=== PATIENT | female | born 1950 | race Caucasian/White ===

== ENCOUNTER 2018-08-15 08:17 | Inpatient (IN) | payer MEDICARE, OTHER ==
[~2018-08-15] VITALS: Ht 170.2 cm; Wt 116.8 kg
[2018-08-15] VITALS (11 sets, daily range): BP systolic 112–145; BP diastolic 52–87
[2018-08-15] MEDS ORDERED: SIMV10TA3 PO (10:23)
[2018-08-15] MEDS ORDERED: LEVO88TA4 PO (10:23)
[2018-08-15] MEDS ORDERED: IPRA0.2S5 NEB (10:23)
[2018-08-15] MEDS ORDERED: FLUT9.9S NS (10:23)
[2018-08-15] MEDS ORDERED: ROPI0.5T PO (10:23)
[2018-08-15] MEDS ORDERED: FURO20TA3 PO (10:23)
[2018-08-15] MEDS ORDERED: ALBU2.5V8 INH (10:23)
[2018-08-15] MEDS ORDERED: PRED1TAB3 PO (10:23)
[2018-08-15] MEDS ORDERED: POLY255P11 PO (10:23)
[2018-08-15] MEDS ORDERED: CETI10TA16 PO (10:23)
[2018-08-15] MEDS ORDERED: PANT20TA2 PO (10:23)
[2018-08-15] MEDS ORDERED: FAMO-63 PO (10:23)
[2018-08-15] MEDS ORDERED: MELA3TAB2 PO (10:23)
[2018-08-15] MEDS ORDERED: ROFL500T7 PO (10:23)
[2018-08-15] MEDS ORDERED: MONT10TA6 PO (10:23)
[2018-08-15] MEDS ORDERED: LORA0.5T PO (10:23)
[2018-08-15] MEDS ORDERED: NYST15CR TP (10:23)
[2018-08-15] MEDS ORDERED: GUAI600T47 PO (10:23)
[2018-08-15] MEDS ORDERED: CHOL100013 PO (10:23)
[2018-08-15] MEDS ORDERED: ALBUTEROL SULFATE 2.5 MG/3 ML NEBU. INH PRN (10:30)
[2018-08-15] MEDS: POLYETHYLENE GLYCOL 3350 17 GM PACKET. PO SCH (11:00)
[2018-08-15] MEDS: CHOLECALCIFEROL (VITAMIN D3) 1,000 UNIT TABLET PO SCH (11:00)
[2018-08-15] MEDS: FAMOTIDINE 20 MG TABLET. PO SCH ×2 (11:00→20:59)
[2018-08-15] MEDS ORDERED: NYSTATIN 100,000 UNIT/GM TOPICAL CREAM 15GM TUBE. TP SCH (11:00)
[2018-08-15] MEDS: CETIRIZINE HCL 10 MG TABLET. PO SCH (11:00)
[2018-08-15] MEDS ORDERED: FLUTICASONE 50MCG/NASAL SPRAY 16GM BOTTLE. NS SCH (11:00)
[2018-08-15] MEDS: FUROSEMIDE 20 MG TABLET PO SCH (11:00)
[2018-08-15] MEDS: predniSONE 5 MG TABLET PO SCH (11:00)
[2018-08-15] MEDS: ROFLUMILAST 500 MCG TABLET. PO SCH (11:00)
[2018-08-15 11:11] LABS: BASO # 0.1 x10^3/uL (0.0-0.2); BASO % 1 % (0-3); EOS # 1.2 x10^3/uL (0.0-0.7); EOS % 11 % (0-3); HEMATOCRIT 36.5 % (36.0-47.0); HEMOGLOBIN 11.7 g/dL (12.0-15.5); LYMPH # 0.6 x10^3/uL (1.0-4.8); LYMPH % 6 % (24-48); MEAN CORPUSCULAR HEMOGLOBIN 31 pg (25-35); MEAN CORPUSCULAR HGB CONC 32 g/dL (31-37); MEAN CORPUSCULAR VOLUME 96 fL (79-100); MONO # 1.1 x10^3/uL (0.0-1.1); MONO % 10 % (0-9); NEUT # 7.6 x10^3uL (1.8-7.7); NEUT % 72 % (31-73); PLATELET COUNT 290 x10^3/uL (140-400); RED BLOOD COUNT 3.79 x10^6/uL (3.50-5.40); RED CELL DISTRIBUTION WIDTH 14.1 % (11.5-14.5); WHITE BLOOD COUNT 10.5 x10^3/uL (4.0-11.0)
[2018-08-15 11:20] LABS: CALCIUM 9.4 mg/dL (8.5-10.1); CREATININE 1.2 mg/dL (0.6-1.0); GFR 54.4; POTASSIUM 3.9 mmol/L (3.5-5.1)
[2018-08-15] MEDS: PANTOPRAZOLE 40 MG TABLET.DR. PO SCH (11:30)
[2018-08-15] MEDS: FLUTICASONE 50MCG/NASAL SPRAY 16GM BOTTLE. NS SCH (12:00)
[2018-08-15] MEDS: NYSTATIN 100,000 UNIT/GM TOPICAL CREAM 15GM TUBE. TP SCH ×2 (12:00→21:00)
[2018-08-15 12:08] LABS: % BANDS 6 % (0-9); % EOS 11 % (0-5); % LYMPHS 11 % (24-48); % MONOS 5 % (0-10); % SEGS 67 % (35-66)
[2018-08-15 12:10] LABS: PLT ESTIMATE ADEQUATE (ADEQUATE)
--- NOTE | 2018-08-15 12:10 | HP ---
ADMIT DATE: 08/15/2018 HISTORY OF PRESENT ILLNESS: The patient is a 68-year-old female patient who was transferred from [facility] where she was admitted through them. She was seen originally at [facility] where she was having difficulty breathing as well as chest pain, she felt as fairly significant. The patient has a long history of COPD and has been treated numerous times by her director of emergency nursing. The patient came in through as noted from [facility]. As they do not have any room for admission, she was admitted to [facility] and was admitted for acute exacerbation of COPD with respiratory infection as well as chest pain. She has had 3 sets of cardiac enzymes that ruled out myocardial infarction. However, an echocardiogram showed severe mitral stenosis with a surface area of 0.7 square cm, and therefore, the patient was transferred to [facility] to consult the director of emergency nursing as well as cardiothoracic surgeon and to do left and right heart catheterization. PAST MEDICAL HISTORY: Significant for chronic obstructive pulmonary disease and recurrent admission for exacerbation, congestive heart failure, hyperlipidemia. She is on continuous oxygen and Trilogy for hypercapnia, morbid obesity and obstructive sleep apnea. She also has severe mitral stenosis. PAST SURGICAL HISTORY: Significant for other medical problems to include hypothyroidism, chronic steroid therapy, anxiety disorder. PAST SURGICAL HISTORY: Significant for total abdominal hysterectomy, bilateral salpingo-oophorectomy, ectopic . She also has cholecystectomy. FAMILY HISTORY: Positive for diabetes, hypertension, multiple sclerosis and emphysema. SOCIAL HISTORY: She is . Quit smoking and drinking about a year ago. She is a [id number] mom, took care of 5 children. ALLERGIES: She has no known drug allergies. MEDICATIONS: She is currently on following medications: Cetirizine 10 mg once a day, ipratropium bromide by nebulizer 4 times a day, albuterol sulfate 1 puff every 6 hours. She is on simvastatin 10 mg at bedtime, lorazepam 0.5 mg every 8 hours, Requip 0.5 mg at bedtime, furosemide 20 mg once a day, montelukast 10 mg at bedtime, Mucinex 600 mg twice a day, Daliresp 500 mcg tablet once a day, Flonase 2 sprays to each nostril daily. She is on polyethylene glycol 17 grams daily, famotidine 20 mg twice a day, Protonix 40 mg daily, prednisone 5 mg daily, levothyroxine sodium 88 mcg once a day, nystatin cream apply topically twice a day, cholecalciferol 1000 International Unit once a day, and melatonin 3 mg at bedtime. REVIEW OF SYSTEMS: The patient denied any blurring of vision, cataract, glaucoma or macular degeneration. Denied any earache, tinnitus or sensorineural deafness. Denied any nosebleeds, stuffy nose or postnasal drip. Denied any sore throat, sore tongue, toothache, hoarseness of voice or difficulty swallowing. Denied any nausea, vomiting, diarrhea or constipation. Denied any hematemesis, melena or hematochezia. Denied any dysuria, frequency or hematuria. Did complain of chest pain, shortness of breath, orthopnea and paroxysmal nocturnal dyspnea. She had also cough with creamy sputum. Denied any dizziness, lightheadedness or vertigo. Denied any chills, rigors or fever. PHYSICAL EXAMINATION: GENERAL: On examining her, she was resting slightly propped up in bed, in no apparent respiratory distress. There is no pallor, jaundice, cyanosis or thyromegaly. No jugular venous distension. No lower limb edema. VITAL SIGNS: Her heart rate was 88, blood pressure 137/40, temperature was 98, respiratory rate was 18 and oxygen saturation was 98% on 2 liters oxygen by nasal cannula. HEAD, EYES, EARS, NOSE AND THROAT: Showed normocephalic, atraumatic. NECK: Supple. HEART: Showed normal first and second heart sounds with no gallop, rub or murmur. CHEST: Shows central trachea, equal bilateral expansion, air entry. Vesicular breath sounds. No crepitation or rhonchi. ABDOMEN: Distended, soft, nontender. NEUROLOGIC: She is awake, alert, responding appropriately. All her cranial nerves intact. EXTREMITIES: She moves extremities without difficulty. She ambulates with a walker. LABORATORY DATA: While at [facility], she has had lab work done, showed that her white cell count was 10,760. Her hemoglobin was 11, hematocrit 37, MCV 97 and platelet count 282,000. Her serum sodium was 141, potassium 4.7, chloride 98, bicarbonate 32, anion gap of 10, calcium was 9.5, glucose was 103. Total protein was 8, albumin was 4.3, alkaline phosphatase was 84. She apparently has had an echocardiogram done, the echocardiogram showed that her left ventricular systolic function is normal, ejection fraction is 55-60%, normal left ventricular segmental wall motion. The patient has severe mitral valve stenosis with a calculated mitral valve area of 0.7 square cm with mean pressure gradient of 60 mmHg. She has mild mitral regurgitation, trace to mild tricuspid regurgitation, moderate pulmonary hypertension with pulmonary artery pressure was estimated at 46 mmHg. There is no evidence of significant pericardial effusion. ASSESSMENT AND PLAN: The patient was transferred to [facility] who basically for left and right cardiac catheterization, further evaluation and possible cardiothoracic surgery consult. We will continue with all her medication, consult the Cardiology, director of emergency nursing as well as the cardiothoracic surgeon. KESHIA CORDERO MD DR: KIRSTEN/tami JOB#: [id number] / [id number]
[2018-08-15] MEDS: IPRATROPIUM BROMIDE 0.5 MG/2.5 ML NEBU. NEB SCH ×3 (12:43→22:04)
[2018-08-15] MEDS ORDERED: fentaNYL PF VIAL 100 MCG/2 ML VIAL ONE (13:04)
[2018-08-15] MEDS ORDERED: MIDAZOLAM HCL/PF 2 MG/2 ML VIAL. ONE (13:05)
[2018-08-15] MEDS ORDERED: MIDAZOLAM HCL/PF 2 MG/2 ML VIAL. IV ONE (13:15)
[2018-08-15] MEDS ORDERED: fentaNYL PF VIAL 100 MCG/2 ML VIAL IV ONE (13:15)
[2018-08-15] MEDS ORDERED: IODIXANOL 320 MG/ML 100 ML VIAL. IART ONE (13:15)
[2018-08-15] MEDS ORDERED: LIDOCAINE 1% Multi-Dose 20 ML VIAL. INJ ONE (13:15)
[2018-08-15] MEDS ORDERED: LIDOCAINE 1% Multi-Dose 20 ML VIAL. ONE (13:24)
[2018-08-15] MEDS ORDERED: IODIXANOL 320 MG/ML 100 ML VIAL. ONE (14:19)
--- NOTE | 2018-08-15 15:03 | PDOC ---
MODERATE SEDATION ASSESSMENT RISKS/ALTERNATIVES Risks/Alternatives Risks and alternatives of this type of sedation and procedure discussed with: RISK/ALTERNATIVES: Patient H & P ON CHART H & P H & P on chart and reviewed for co-morbid conditions and appropriate labs. H&P ON CHART: Yes STATUS PREG STATUS ASSESSED: N/A MEDS/ALLERGIES REVIEWED Meds/Allergies Reviewed Medications and Allergies including time and route of recently administered narcotics and sedatives. MEDS/ALLERGIES REVIEWED: Yes ASA RATING ASA RATING: III AIRWAY ASSESSMENT Airway Assessment Airway patency, oral function limitations, presence of caps, crowns, dentures, partials, and ability to extend neck assessed. AIRWAY ASSESSMENT: Yes MALLAMPATI SCORE MALLAMPATI SCORE: II PRE-SEDATION ASSESSMENT PRE-SEDATION ASSESSMENT: Yes TERI SNELL MD Aug 15, 2018 15:03
[2018-08-15] MEDS: ONDANSETRON PF 4 MG/2 ML VIAL. IV PRN (15:07)
--- NOTE | 2018-08-15 15:13 | CARD ---
MR#: [id number] Date of Study: 08/15/2018 Ordering Physician: TERI LITTLE, Referring Physician: KESHIA CORDERO Tech: Radha Ramos RTR APPROVED REPORT Technologist: Radha Ramos RTR Nurse: Candelaria Meyer RN Procedure(s) performed: Right and left heart catheterization and selective coronary angiography Moderate Sedation time:45 minutes HISTORY : Mitral valve stenosis and chronic diastolic heart failure. [facility] Clinical Frailty Scale [facility] Clinical Frailty Scale: Mildly Frail Heart Failure Heart Failure: Yes If Yes, Newly Diagnosed: No If Yes, HF Type: Diastolic If Yes, NYHA Class: Class II PROCEDURE NARRATIVE After explaining the risks, benefits and alternative options, informed consent was obtained from kiara ent. Patient was brought to the cardiac Fellmongering Machine Operator and her right groin was prepped and draped in the us ual fashion. 20 mL of 2% lidocaine was infiltrated into the skin and subcutaneous tissues for local a nesthesia. Arterial and venous accesses were obtained in the right common femoral artery and vein and 6 and 8 Irish sheaths were inserted. 7.5 Irish Luquillo-Filippo catheter was advanced under fluoroscopy g uidance and intracardiac pressures, oxygen saturations and cardiac output by thermodilution method me asured. 6 Irish pigtail catheter was advanced to the arterial sheath and with the tip positioned in the left ventricle simultaneous left ventricular and primary capillary wedge pressure measurements we re made to assess transmitral gradient. Subsequently, 6 Irish JL4 and 6 Irish JR4 catheters were us ed to perform selective angiography of the left and right coronary arteries. Patient tolerated the pr ocedure well. Hemostasis was achieved using mynx closure device and manual compression. There were no immediate complications. FINDINGS A. RIGHT HEART CATHETERIZATION: 1. Intracardiac pressures: Mean right atrial pressure 15 mmHg, right ventricular pressure 61/14 mmH g, pulmonary artery pressure 61/31 mmHg and mean PA pressure 47 mmHg, mean pulmonary capillary wedge pressure 28 mmHg. This is consistent with moderate pulmonary hypertension. 2. Oxygen saturations: Right atrium 68.1%, pulmonary artery 66.2%, femoral arterial sheath 96.4%. N o evidence of intracardiac shunt. 3. Cardiac output by thermodilution method 4.7 L/m and by Awais method 4.57 L/m. 4. Transmitral gradient of 13.3 mmHg with calculated mitral valve area 1.24 cm. This is consistent with severe mitral stenosis. B. LEFT HEART CATHETERIZATION 1. Hemodynamics: Left ventricular end-diastolic pressure 19 mmHg. No pullback gradient across the a ortic valve. 2. Left ventriculography: Normal left ventricle systolic function with ejection fraction estimated at 65%. No significant mitral regurgitation seen. 3. Coronary angiography: a. The left main coronary artery arose from the left sinus of Valsalva, gave rise to the left anteri or descending and left circumflex arteries and did not show any significant stenosis. b. The left anterior descending artery did not show any significant stenosis. c. The left circumflex artery did not show any significant stenosis. d. The right coronary artery was a large and dominant vessel arising from the right sinus of Valsalv a that did not show any significant stenosis. Conclusion 1. No significant coronary artery disease 2. Normal left ventricle systolic function with ejection fraction estimated at 65% 3. Severe mitral valve stenosis with mean gradient 13.3 mmHg and calculated mitral valve area 1.24 c m 4. Moderate pulmonary hypertension Signed by : Teri Little, Electronically Approved : 08/15/2018 15:12:35
[2018-08-15] MEDS ORDERED: NITROGLYCERIN SUBLINGUAL 0.4 MG BOTTLE OF 25. SL PRN (15:15)
[2018-08-15] MEDS: HYDROcodone/APAP 5/325MG 1 TAB TABLET PO PRN (15:38)
[2018-08-15] MEDS: IV 1/2 NORMAL SALINE 1,000 ML IV SCH (15:38)
[2018-08-15] MEDS: SIMVASTATIN 10 MG TABLET PO SCH (20:59)
[2018-08-15] MEDS: rOPINIRole 0.25 MG TABLET. PO SCH (20:59)
[2018-08-15] MEDS: MONTELUKAST SODIUM 10 MG TABLET. PO SCH (21:00)
[2018-08-15] MEDS ORDERED: NON FORMULARY ITEM (Melatonin 1 TAB) PO SCH (21:00)
[2018-08-15] MEDS: LORazepam 0.5 MG TABLET PO PRN (21:06)
[2018-08-16 03:00] VITALS: BP 124/55
[2018-08-16 04:02] LABS: HEMATOCRIT 34.8 % (36.0-47.0); HEMOGLOBIN 11.1 g/dL (12.0-15.5); RED BLOOD COUNT 3.59 x10^6/uL (3.50-5.40); RED CELL DISTRIBUTION WIDTH 13.7 % (11.5-14.5); WHITE BLOOD COUNT 10.7 x10^3/uL (4.0-11.0)
[2018-08-16 04:29] LABS: ALBUMIN 3.5 g/dL (3.4-5.0); ALBUMIN/GLOBULIN RATIO 0.9 (1.0-1.7); CREATININE 1.1 mg/dL (0.6-1.0); GFR 49.7; POTASSIUM 4.1 mmol/L (3.5-5.1); TOTAL BILIRUBIN 0.7 mg/dL (0.2-1.0); TOTAL PROTEIN 7.5 g/dL (6.4-8.2)
[2018-08-16] MEDS: HYDROcodone/APAP 5/325MG 1 TAB TABLET PO PRN ×2 (06:01→21:02)
[2018-08-16 07:00] VITALS: BP 112/46
--- NOTE | 2018-08-16 07:27 | PDOC ---
Provider Note Provider Note [id number] chronic resp fail copd obesity prob [facility] see orders SERGIO TSAI MD Aug 16, 2018 07:27
[2018-08-16] MEDS: IV 1/2 NORMAL SALINE 1,000 ML IV SCH (07:43)
[2018-08-16] MEDS: IPRATROPIUM BROMIDE 0.5 MG/2.5 ML NEBU. NEB SCH ×4 (07:58→20:05)
[2018-08-16] MEDS: BUDESONIDE 0.5 MG/2 ML NEBU. NEB SCH ×2 (07:59→20:06)
--- NOTE | 2018-08-16 08:26 | CONS ---
DATE OF CONSULTATION: 08/16/2018 I was asked to see this 68-year-old lady for chronic respiratory failure. Preoperative evaluation. HISTORY OF PRESENT ILLNESS: She does have history of [id number] smoking, stopped smoking about a year ago. She has chronic respiratory failure and COPD. She is on oxygen 4 liters continuously. Her airport security screener at [facility] started her on Trelegy at night about a year ago. She does have shortness of breath. Her exercise tolerance is room to room. She has gained about 40 pounds over the past 2 years. She does not exercise. She has not had a sleep study. She is on prednisone daily. She was not able to tolerate, being off prednisone. She had cardiac catheterization done yesterday, which did show severe mitral stenosis. The patient did have chest pain, went to [facility]. She was transferred to [place] on Saturday and she was transferred to [place] yesterday and underwent cardiac catheterization yesterday. (Today is Saturday). She does have daily cough, which is not worse. PAST MEDICAL HISTORY: COPD, chronic respiratory failure, mitral stenosis as mentioned as above, CHF, hyperlipidemia. FAMILY HISTORY: Father had lung cancer. SOCIAL HISTORY: History of [id number] smoking, stopped smoking a year ago. ALLERGIES: No known drug allergies. MEDICATIONS: Currently, she is on DuoNeb, prednisone 5 mg daily, Synthroid, Requip, Singulair, Zocor, Lortab, Zofran, Atrovent, Flonase, Protonix, Daliresp, vitamin D, prednisone 5 mg daily, Mucinex, Lasix, Pepcid, lorazepam. REVIEW OF SYSTEMS: As mentioned as above, other systems otherwise negative. PHYSICAL EXAMINATION: GENERAL: This morbidly obese lady. VITAL SIGNS: Her O2 saturation on 4 liters of oxygen is 92%, respiratory rate 16, heart rate 93, blood pressure 124/55, temperature 97.9. HEENT: Normocephalic, atraumatic. Pupils equal, round, reactive to light. There is shallow oropharynx. Nose is clear. NECK: There is no JVD, lymphadenopathy or thyromegaly. CARDIOVASCULAR: Regular rate and rhythm, positive for murmur. CHEST: Inspection is normal. LUNGS: Few end expiratory wheezing, dullness at the bases. ABDOMEN: Soft and obese. Bowel sounds are good. There is no mass. EXTREMITIES: There is trace edema. LYMPHATICS: There is no lymphadenopathy. NEUROLOGIC: Alert and oriented. SKIN: Warm. I reviewed the following lab data. Cardiac catheterization as mentioned as above. WBC 10.7, hemoglobin 11.1, platelet 266. Sodium 138, potassium 4.1, chloride 100, CO2 31, glucose 109, BUN 18, creatinine 1.1. INR 1.1. IMPRESSION: 1. Chronic respiratory failure. 2. Chronic obstructive pulmonary disease, suspect severe. 3. Obesity, probable obstructive sleep apnea-hypopnea syndrome and obesity hypoventilation syndrome. 4. Severe mitral stenosis. 5. Anemia. 6. Hypothyroidism. 7. History of congestive heart failure. PLAN AND RECOMMENDATIONS: 1. Titrate FiO2 to keep O2 saturation 92%. 2. Continue Trelegy during sleep. 3. Bronchodilator. 4. Add inhaled corticosteroid. 5. Continue prednisone, since she has been on prednisone for at least 1 year. 6. Continue Daliresp. 7. Add inhaled corticosteroid. 8. ABG and complete PFTs. 9. Chest x-ray, she may require CT of the chest. 10. She has COPD, which I suspect it is severe, steroid and oxygen dependent. She has chronic respiratory failure. She is morbidly obese. She has deconditioning and possible obstructive sleep apnea-hypopnea syndrome and obesity hypoventilation syndrome. I suspect she would be at high risk of developing pulmonary complications in the perioperative period. I ordered PFTs and ABG to further evaluate her COPD. 11. The findings and recommendations were discussed with the patient and RN. I have answered all of the patient's questions. She understood and agreed to proceed with the plan. Thank you very much for allowing me to participate in care of this very nice lady. SERGIO TSAI M.D. : Nir JOB#: [id number] / [id number]
[2018-08-16] MEDS: FUROSEMIDE 20 MG TABLET PO SCH (08:41)
[2018-08-16] MEDS: ROFLUMILAST 500 MCG TABLET. PO SCH (08:42)
[2018-08-16] MEDS: PANTOPRAZOLE 40 MG TABLET.DR. PO SCH (08:42)
[2018-08-16] MEDS: FAMOTIDINE 20 MG TABLET. PO SCH ×2 (08:42→20:58)
[2018-08-16] MEDS: POLYETHYLENE GLYCOL 3350 17 GM PACKET. PO SCH (08:42)
[2018-08-16] MEDS: LEVOTHYROXINE 88 MCG TABLET PO SCH (08:42)
[2018-08-16] MEDS: predniSONE 5 MG TABLET PO SCH (08:42)
[2018-08-16] MEDS: CHOLECALCIFEROL (VITAMIN D3) 1,000 UNIT TABLET PO SCH (08:42)
[2018-08-16] MEDS: CETIRIZINE HCL 10 MG TABLET. PO SCH (08:42)
[2018-08-16] MEDS: FLUTICASONE 50MCG/NASAL SPRAY 16GM BOTTLE. NS SCH (08:42)
[2018-08-16] MEDS: NYSTATIN 100,000 UNIT/GM TOPICAL CREAM 15GM TUBE. TP SCH ×2 (08:44→21:00)
--- NOTE | 2018-08-16 10:23 | RAD ---
AP chest. HISTORY: Short of breath AP view of the chest was compared with recent studies. There are still hazy and linear atelectasis or infiltrate in the lung bases. Heart is upper normal in size. There is been no change from the recent study. IMPRESSION: 1. Linear and hazy basilar atelectasis or infiltrates with little change. Electronically signed by: Ahsan Givens MD (08/16/2018 10:20 AM) [facility]
--- NOTE | 2018-08-16 10:58 | PDOC ---
Provider Note Provider Note S: No new overnight events. Continues to have dyspnea. On 4L NC Seen by pulmonary O: VS: HR 91, BP 112/82, RR 18 Morbidly obese. Distant heart sounds. Mild end exp wheezing No edema. Labs reviewed. Cath findings reviewed. LVEDP 19 mm Hg. Moderate pulm HTN ABG pending Impression: 1. Severe mitral stenosis. 2. Moderate pulmonary HTN 3. COPD Plan 1. Lasix 20mg IVP today. 2. Start low dose metoprolol to improve HR. 3. Continue aggressive pulm tx and eval Based on pulm eval, will determine suitability for transcatheter versus surgical MVR. She may ideally be a good candidate for a mitral valvuloplasty. Thanks YADIRA TOLENTINO MD Aug 16, 2018 10:57
[2018-08-16] MEDS ORDERED: METOPROLOL TART IMMED RELEASE 25 MG TABLET. PO ONE (11:00)
[2018-08-16] MEDS ORDERED: FUROSEMIDE 20 MG/2 ML VIAL. IVP ONE (11:00)
[2018-08-16 11:15] VITALS: BP 110/50
--- NOTE | 2018-08-16 12:09 | PN ---
DATE: 08/16/2018 SUBJECTIVE: The patient is resting, slightly propped up in bed, in no apparent distress. She is on her Trilogy, stated that she has not slept well because she normally takes sleep aid in the form of melatonin at home. She apparently has had her cardiac catheterization done yesterday, which basically showed no significant coronary artery disease. She has normal left ventricular systolic function, ejection fraction estimated at 65%. She has severe mitral valve stenosis with a mean gradient of 13.3 mmHg and a calculated mitral valve area of 1.24 sq cm. She has moderate pulmonary hypertension. She was seen in consultation by Dr. Michaels, and she did order a pulmonary function test and ABG to further evaluate her COPD before contemplating surgical treatment of her severe mitral stenosis. PHYSICAL EXAMINATION: GENERAL: When I saw her this morning, she looked well and was clearly in no apparent respiratory distress. No pallor, jaundice, cyanosis or thyromegaly. No jugular venous distension. No lower limb edema. VITAL SIGNS: Her heart rate was 91, blood pressure was 112/46, temperature was 98.4, respiratory rate was 16 and oxygen saturation was 98% on 4 liters of oxygen. HEAD, EYES, EARS, NOSE AND THROAT: Showed normocephalic, atraumatic. NECK: Supple. HEART: Showed normal first and second heart sounds. No gallop, rub or murmur. CHEST: Clear to auscultation. No crepitation or rhonchi. Central trachea, equally reduced expansion, reduced air entry, vesicular breath sounds with few scattered rhonchi, could not appreciate any crepitation. ABDOMEN: Soft, nontender. No guarding or rigidity. No organomegaly. All hernial orifice intact. Bowel sounds normal. NEUROLOGIC: She was awake, alert, responding appropriately. All cranial nerves intact. She moves extremities without difficulty. She ambulates with a walker. Her intake over the last 24 hours and output are incompletely recorded. LABORATORY DATA: Her lab work this morning showed a white cell count of 10,700, hemoglobin 11, hematocrit 35, MCV 97 and a platelet count 266,000. Serum sodium was 138, potassium 4.1, chloride 100, bicarbonate 31, anion gap of 7, BUN 18, creatinine 1.1, estimated GFR was 50 mL per minute. Her glucose 109, calcium was 9. Total bilirubin, AST, ALT, alkaline phosphatase were normal. Total protein was 7.5, albumin was 3.5. Her prothrombin time was 14, INR 1.1. ASSESSMENT: 1. Acute on chronic hypoxic hypercapnic respiratory failure. 2. Chronic obstructive pulmonary disease exacerbation. 3. Acute on chronic diastolic congestive heart failure, hyperlipidemia, morbid obesity, obstructive sleep apnea, severe mitral stenosis. KESHIA CORDERO MD DR: KIRSTEN/tami JOB#: [id number] / [id number]
[2018-08-16 14:00] LABS: BASE EXCESS ABG 8 mmol/L (-3-3); HCO3 ABG 35 mmol/L (21-28); PO2 ABG 76 mmHg (65-108); SAT O2 ABG 95 % (92-99)
[2018-08-16 14:02] LABS: FIO2 ABG 36; PCO2 ABG 60 mmHg (35-46)
--- NOTE | 2018-08-16 15:01 | NUR ---
Rehab screen completed. Pt reports increased weakness and decreased activity level compared to baseline. Pt would benefit from PT/OT eval and treat. Addendum: 08/16/18 at 1503 by YVETTE DAVIS PT Amended: Links added.
[2018-08-16 15:15] VITALS: BP 117/54
[2018-08-16 19:50] VITALS: BP 122/47
--- NOTE | 2018-08-16 19:50 | PDOC2 ---
CONSULT Date of Consult Date of Consult DATE: 08/16/18 TIME: 19:46 Reason for Consult Reason for Consult: Severe mitral stenosis Referring Physician Referring Physician: Dr Rangel Identification/Chief Complaint Chief Complaint SOB Source Source: Chart review, Patient History of Present Illness Reason for Visit: The patient is a 68 year old female with severe COPD, O2 and steroid dependent, morbid obesity and overall poor functional status, who was transferred from [facility] with worsening dyspnea. ECHO showed severe MS, with a gradient of 13mmHg across the valve, confirmed on LHC. LV function is preserved. I was consulted for possible surgical MV replacement. Past Medical History Cardiovascular: CHF Pulmonary: COPD Social History Quit Current Medications Current Medications Current Medications Albuterol Sulfate (Ventolin Neb Soln) 8.5 mg PRN Q6HRS PRN INH SHORTNESS OF BREATH; Start 08/15/18 at 10:30 Cetirizine HCl (ZyrTEC) 10 mg DAILY PO Last administered on 08/16/18 08:42; Start 08/15/18 at 11:00 Famotidine (Pepcid) 20 mg BID PO Last administered on 08/16/18 08:42; Start at 11:00 Furosemide (Lasix) 20 mg DAILY PO Last administered on 08/16/18 08:41; Start 08/15/18 at 11:00 Guaifenesin (Mucinex) 600 mg BID PO Last administered on 08/16/18 08:42; Start 08/15/18 at 11:00 Ipratropium [place] (Atrovent) 0.2 mg QID NEB Last administered on 08/16/18 15 :41; Start 08/15/18 at 13:00 Levothyroxine Sodium (Synthroid) 88 mcg DAILYAC PO Last administered on 08:42; Start 08/16/18 at 07:30 Lorazepam (Ativan) 0.5 mg PRN Q8HRS PRN PO ANXIETY / AGITATION Last administered on 08/15/18 21:06; Start 08/15/18 at 10:30 Prednisone (Prednisone) 5 mg DAILY PO Last administered on 08/16/18 08:42; Start 08/15/18 at 11:00 Simvastatin (Zocor) 10 mg HS PO Last administered on 08/15/18 20:59; Start at 21:00 Vitamin D (Vitamin D3) 1,000 unit DAILY PO Last administered on 08/16/18 08:42 ; Start 08/15/18 at 11:00 Fluticasone Propionate (Flonase) 2 spray DAILY NS ; Start 08/15/18 at 11:00; Status Cancel Non-Formulary Medication (Melatonin ) 1 tab QHS PO ; Start 08/15/18 at 21:00; Status UNV Montelukast Sodium (Singulair) 10 mg QHS PO Last administered on 08/15/18 21: 00; Start 08/15/18 at 21:00 Nystatin (Mycostatin) 1 eliana BID TP ; Start 08/15/18 at 11:00; Status Cancel Pantoprazole Sodium (Protonix) 40 mg DAILYAC PO Last administered on 08/16/18 08:42; Start 08/15/18 at 11:30 Polyethylene Glycol (miraLAX PACKET) 17 gm DAILY PO Last administered on 08:42; Start 08/15/18 at 11:00 Roflumilast (Daliresp) 500 mcg DAILY PO Last administered on 08/16/18 08:42; Start 08/15/18 at 11:00 Ropinirole HCl (Requip) 0.5 mg QHS PO Last administered on 08/15/18 20:59; Start 08/15/18 at 21:00 Nystatin (Mycostatin) 1 eliana BID TP Last administered on 08/16/18 08:44; Start 08/15/18 at 12:00 Fluticasone Propionate (Flonase) 2 spray DAILY NS Last administered on 08:42; Start 08/15/18 at 12:00 Fentanyl Citrate (Fentanyl 2ml Vial) 100 mcg STK-MED ONCE .ROUTE ; Start at 13:04; Stop 08/15/18 at 13:05; Status DC Midazolam HCl (Versed) 2 mg STK-MED ONCE .ROUTE ; Start 08/15/18 at 13:05; Stop 08/15/18 at 13:06; Status DC Heparin Sodium/ Sodium Chloride (HEPARIN for ARTERIAL LINE FLUSH) 1,000 unit 1X ONCE IART Last administered on 08/15/18at 13:15; Start 08/15/18 at 13:15; Stop 08/15/18 at 13:16; Status DC Midazolam HCl (Versed) 2 mg 1X ONCE IV Last administered on 08/15/18at 13:15; Start 08/15/18 at 13:15; Stop 08/15/18 at 13:16; Status DC Fentanyl Citrate (Fentanyl 2ml Vial) 100 mcg 1X ONCE IV Last administered on at 13:15; Start 08/15/18 at 13:15; Stop 08/15/18 at 13:16; Status DC Iodixanol (Visipaque 320) 100 ml 1X ONCE IART Last administered on 08/15/18at 13:15; Start 08/15/18 at 13:15; Stop 08/15/18 at 13:16; Status DC Lidocaine HCl (Lidocaine 1% 20ml Vial) 20 ml 1X ONCE INJ Last administered on 08/15/18at 13:15; Start 08/15/18 at 13:15; Stop 08/15/18 at 13:16; Status DC Lidocaine HCl (Lidocaine 1% 20ml Vial) 20 ml STK-MED ONCE .ROUTE ; Start at 13:24; Stop 08/15/18 at 13:25; Status DC Heparin Sodium/ Sodium Chloride 500 ml @ As Directed STK-MED ONCE .ROUTE ; Start 08/15/18 at 13:24; Stop 08/15/18 at 13:25; Status DC Heparin Sodium/ Sodium Chloride (HEPARIN for ARTERIAL LINE FLUSH) 1,000 unit 1X ONCE IART Last administered on 08/15/18at 14:15; Start 08/15/18 at 14:15; Stop 08/15/18 at 14:16; Status DC Iodixanol (Visipaque 320) 100 ml STK-MED ONCE .ROUTE ; Start 08/15/18 at 14:19; Stop 08/15/18 at 14:20; Status DC Ondansetron HCl (Zofran) 4 mg PRN Q6HRS PRN IV NAUSEA/VOMITING Last administered on 08/15/18at 15:07; Start 08/15/18 at 15:00 Acetaminophen/ Hydrocodone Bitart (Lortab 5/325) 1 tab PRN Q4HRS PRN PO PAIN Last administered on 08/16/18at 06:01; Start 08/15/18 at 15:00 Sodium Chloride 1,000 ml @ 60 mls/hr [id number] IV Last administered on at 15:38; Start 08/15/18 at 15:03 Nitroglycerin (Nitrostat) 0.4 mg PRN Q5MIN PRN SL CHEST PAIN; Start 08/15/18 at 15:15 Budesonide (Pulmicort) 0.5 mg RTBID NEB Last administered on 08/16/18at 07:59; Start 08/16/18 at 08:00 Metoprolol Tartrate (Lopressor) 25 mg BID PO ; Start 08/16/18 at 21:00 Metoprolol Tartrate (Lopressor) 25 mg 1X ONCE PO Last administered on at 11:18; Start 08/16/18 at 11:00; Stop 08/16/18 at 11:01; Status DC Furosemide (Lasix) 20 mg 1X ONCE IVP Last administered on 08/16/18at 11:18; Start 08/16/18 at 11:00; Stop 08/16/18 at 11:01; Status DC Active Scripts Active Reported Requip (Ropinirole Hcl) 0.5 Mg Tablet 1 Tab PO QHS Prednisone 1 Mg Tablet 5 Mg PO DAILY Mucinex (Guaifenesin) 600 Mg Tablet.er 600 Mg PO BID Simvastatin 10 Mg Tablet 10 Mg PO HS Daliresp (Roflumilast) 500 Mcg Tablet 1 Tab PO DAILY Polyethylene Glycol 3350 255 Gm Powder 17 Gm PO DAILY Protonix (Pantoprazole Sodium) 20 Mg Tablet.dr 40 Mg PO DAILY Nystatin 15 Gm Cream..g. 1 Eliana TP BID Singulair Tablet (Montelukast Sodium) 10 Mg Tablet 10 Mg PO HS Melatonin 3 Mg Tablet 1 Tab PO QHS Lorazepam 0.5 Mg Tablet 0.5 Mg PO PRN Q8HRS PRN Levothyroxine Sodium 88 Mcg Tablet 88 Mcg PO DAILYAC Ipratropium [place] 0.2 Mg/1 Ml Solution 1 Vial NEB QID Furosemide 20 Mg Tablet 1 Tab PO DAILY Flonase Allergy Relief (Fluticasone Propionate) 9.9 Ml [place].susp 2 Sprays NS DAILY Pepcid (Famotidine) 20 Mg Tablet 20 Mg PO BID Vitamin D (Cholecalciferol (Vitamin D3)) 1,000 Unit Capsule 1 Cap PO DAILY Cetirizine Hcl 10 Mg Tablet 1 Tab PO DAILY Proair Hfa Inhaler (Albuterol Sulfate) 8.5 Gm Hfa.aer.ad 1 Puff INH PRN Q6HRS PRN Allergies Allergies: Coded Allergies: No Known Drug Allergies (Unverified , 08/15/18) ROS General: YES: Fatigue; No: Chills, Night Sweats, Malaise, Appetite PSYCHOLOGICAL ROS: No: Anxiety, Behavioral Disorder, Concentration difficultie , Decreased libido, Depression, Disorientation, Hallucinations, Hostility, Irritablity, Memory difficulties, Mood Swings, Obsessive thoughts, Physical abuse, Sexual abuse, Sleep disturbances, Suicidal ideation Eyes: No Blurry vision, No Decreased vision, No Double vision, No Dry eyes, No Excessive tearing, No Eye Pain, No Itchy Eyes, No Loss of vision, No Photophobia , No Scotomata, No Uses contacts, No Uses glasses HEENT: No: Heacaches, Visual Changes, Hearing change, Nasal congestion, Nasal discharge, Oral lesions, Sinus pain, Sore Throat, Epistaxis, Sneezing, Snoring, Tinnitus, Vertigo, Vocal changes ALLERGY AND IMMUNOLOGY: No: Hives, Insect Bite Sensitivity, Itchy/Watery Eyes, Nasal Congestion, Post Nasal Drip, Seasonal Allergies Hematological and Lymphatic: No: Bleeding Problems, Blood Clots, Blood Transfusions, Brusing, Night Sweats, Pallor, Swollen Lymph Nodes ENDOCRINE: No: Breast Changes, Galactorrhea, Hair Pattern Changes, Hot Flashes , Malaise/lethargy, Mood Swings, Palpitations, Polydipsia/polyuria, Skin Changes , Temperature Intolerance, Unexpected Weight Changes Breast: No New/Changing Breast Lumps, No Nipple changes, No Nipple discharge Respiratory: YES: Orthopnea, Shortness of breath, Wheezing; No: Cough, Hemoptysis, Pleuritic Pain, SOB with excertion, Sputum Changes, Stridor, Tachypnea, Other Cardiovascular: yes Chest Pain; No Palpitations, No Orthopnea, No Paroxysmal Noc. Dyspnea, No Edema, No Lt Headedness, No Other Gastrointestinal: No Nausea, No Vomiting, No Abdominal Pain, No Diarrhea, No Constipation, No Melena, No Hematochezia, No Other Genitourinary: No Dysuria, No Frequency, No Incontinence, No Hematuria, No Retention, No Discharge, No Urgency, No Pain, No Flank Pain Musculoskeletal: No Gait Disturbance, No Joint Pain, No Joint Stiffness, No Joint Swelling, No Muscle Pain, No Muscular Weakness, No Pain In:, No Swelling In: Neurological: No Behavorial Changes, No Bowel/Bladder ControlChng, No Confusion , No Dizziness, No Gait Disturbance, No Headaches, No Impaired Coord/balance, No Memory Loss, No Numbness/Tingling, No Seizures, No Speech Problems, No Tremors, No Visual Changes, No Weakness Skin: No Dry Skin, No Eczema, No Hair Changes, No Lumps, No Mole Changes, No Mottling, No Nail Changes, No Pruritus, No Rash, No Skin Lesion Changes, No Acne Physical Exam General: Alert, Oriented X3, Cooperative, moderate distress HEENT: Atraumatic Lungs: Other Heart: Other Abdomen: Soft, No tenderness Skin: No significant lesion Neuro: Normal gait, Normal speech, Strength at 5/5 X4 ext, Normal tone, Sensation intact, Cranial nerves 3-12 NL, Reflexes 2+ Psych/Mental Status: Mental status NL MUSCULOSKELETAL: No deformity Vitals VITALS Vital Signs Date Time Temp Pulse Resp B/P (MAP) Pulse Ox O2 Delivery O2 Flow Rate FiO2 08/16/18 15:42 Nasal Cannula 4.0 08/16/18 15:15 97.8 82 24 117/54 (75) 98 97.8 Labs Labs Laboratory Tests Test 08/15/18 10:55 08/16/18 03:30 08/16/18 13:55 White Blood Count 10.5 x10^3/uL (4.0-11.0) 10.7 x10^3/uL (4.0-11.0) Red Blood Count 3.79 x10^6/uL (3.50-5.40) 3.59 x10^6/uL (3.50-5.40) Hemoglobin 11.7 g/dL (12.0-15.5) 11.1 g/dL (12.0-15.5) Hematocrit 36.5 % (36.0-47.0) 34.8 % (36.0-47.0) Mean Corpuscular Volume 96 fL (79-100) 97 fL (79-100) Mean Corpuscular Hemoglobin 31 pg (25-35) 31 pg (25-35) Mean Corpuscular Hemoglobin Concent 32 g/dL (31-37) 32 g/dL (31-37) Red Cell Distribution Width 14.1 % (11.5-14.5) 13.7 % (11.5-14.5) Platelet Count 290 x10^3/uL (140-400) 266 x10^3/uL (140-400) Neutrophils (%) (Auto) 72 % (31-73) Lymphocytes (%) (Auto) 6 % (24-48) Monocytes (%) (Auto) 10 % (0-9) Eosinophils (%) (Auto) 11 % (0-3) Basophils (%) (Auto) 1 % (0-3) Neutrophils # (Auto) 7.6 x10^3uL (1.8-7.7) Lymphocytes # (Auto) 0.6 x10^3/uL (1.0-4.8) Monocytes # (Auto) 1.1 x10^3/uL (0.0-1.1) Eosinophils # (Auto) 1.2 x10^3/uL (0.0-0.7) Basophils # (Auto) 0.1 x10^3/uL (0.0-0.2) Segmented Neutrophils % 67 % (35-66) Band Neutrophils % 6 % (0-9) Lymphocytes % 11 % (24-48) Monocytes % 5 % (0-10) Eosinophils % 11 % (0-5) Platelet Estimate Adequate (ADEQUATE) Prothrombin Time 14.0 SEC (11.7-14.0) Prothromb Time International Ratio 1.1 (0.8-1.1) Sodium Level 144 mmol/L (136-145) 138 mmol/L (136-145) Potassium Level 3.9 mmol/L (3.5-5.1) 4.1 mmol/L (3.5-5.1) Chloride Level 101 mmol/L (98-107) 100 mmol/L (98-107) Carbon Dioxide Level 38 mmol/L (21-32) 31 mmol/L (21-32) Anion Gap 5 (6-14) 7 (6-14) Blood Urea Nitrogen 20 mg/dL (7-20) 18 mg/dL (7-20) Creatinine 1.2 mg/dL (0.6-1.0) 1.1 mg/dL (0.6-1.0) Estimated GFR (Cockcroft-Gault) 54.4 49.7 Glucose Level 93 mg/dL (70-99) 109 mg/dL (70-99) Calcium Level 9.4 mg/dL (8.5-10.1) 9.0 mg/dL (8.5-10.1) BUN/Creatinine Ratio 16 (6-20) Total Bilirubin 0.7 mg/dL (0.2-1.0) Aspartate Amino Transf (AST/SGOT) 15 U/L (15-37) Alanine Aminotransferase (ALT/SGPT) 21 U/L (14-59) Alkaline Phosphatase 55 U/L (46-116) Total Protein 7.5 g/dL (6.4-8.2) Albumin 3.5 g/dL (3.4-5.0) Albumin/Globulin Ratio 0.9 (1.0-1.7) O2 Saturation 95 % (92-99) Arterial Blood pH 7.38 (7.35-7.45) Arterial Blood pCO2 at Patient Temp 60 mmHg (35-46) Arterial Blood pO2 at Patient Temp 76 mmHg (65-108) Arterial Blood HCO3 35 mmol/L (21-28) Arterial Blood Base Excess 8 mmol/L (-3-3) FiO2 36 Laboratory Tests Test 08/16/18 03:30 08/16/18 13:55 White Blood Count 10.7 x10^3/uL (4.0-11.0) Red Blood Count 3.59 x10^6/uL (3.50-5.40) Hemoglobin 11.1 g/dL (12.0-15.5) Hematocrit 34.8 % (36.0-47.0) Mean Corpuscular Volume 97 fL (79-100) Mean Corpuscular Hemoglobin 31 pg (25-35) Mean Corpuscular Hemoglobin Concent 32 g/dL (31-37) Red Cell Distribution Width 13.7 % (11.5-14.5) Platelet Count 266 x10^3/uL (140-400) Sodium Level 138 mmol/L (136-145) Potassium Level 4.1 mmol/L (3.5-5.1) Chloride Level 100 mmol/L (98-107) Carbon Dioxide Level 31 mmol/L (21-32) Anion Gap 7 (6-14) Blood Urea Nitrogen 18 mg/dL (7-20) Creatinine 1.1 mg/dL (0.6-1.0) Estimated GFR (Cockcroft-Gault) 49.7 BUN/Creatinine Ratio 16 (6-20) Glucose Level 109 mg/dL (70-99) Calcium Level 9.0 mg/dL (8.5-10.1) Total Bilirubin 0.7 mg/dL (0.2-1.0) Aspartate Amino Transf (AST/SGOT) 15 U/L (15-37) Alanine Aminotransferase (ALT/SGPT) 21 U/L (14-59) Alkaline Phosphatase 55 U/L (46-116) Total Protein 7.5 g/dL (6.4-8.2) Albumin 3.5 g/dL (3.4-5.0) Albumin/Globulin Ratio 0.9 (1.0-1.7) O2 Saturation 95 % (92-99) Arterial Blood pH 7.38 (7.35-7.45) Arterial Blood pCO2 at Patient Temp 60 mmHg (35-46) Arterial Blood pO2 at Patient Temp 76 mmHg (65-108) Arterial Blood HCO3 35 mmol/L (21-28) Arterial Blood Base Excess 8 mmol/L (-3-3) FiO2 36 Assessment/Plan Assessment/Plan The patient is a 68 year old female with severe COPD, O2 and steroid dependent, 60 pack per year smoking, morbid obesity and overall poor functional status, who was transferred from [facility] with worsening dyspnea. ECHO showed severe MS, with a gradient of 13mmHg across the valve, confirmed on C. LV function is preserved. Unfortunately Ms Butlers pulmonary status puts her at prohibitive risk for open heart surgery. Her baseline CO2 is 60. Obesity and poor functional status makes things even worse. The options are either a balloon valvuloplasty or referral for transcatheter mitral replacement. I am concerned that she may not even be a candidate for these lesser invasive options. GLADIS EMMANUEL MD Aug 16, 2018 19:50
[2018-08-16] MEDS ORDERED: ALBUTEROL SULFATE 2.5 MG/3 ML NEBU. INH PRN (20:30)
[2018-08-16] MEDS: rOPINIRole 0.25 MG TABLET. PO SCH (20:58)
[2018-08-16] MEDS: SIMVASTATIN 10 MG TABLET PO SCH (20:58)
[2018-08-16] MEDS: MONTELUKAST SODIUM 10 MG TABLET. PO SCH (20:59)
[2018-08-16] MEDS: METOPROLOL TART IMMED RELEASE 25 MG TABLET. PO SCH (20:59)
[2018-08-16] MEDS: LORazepam 0.5 MG TABLET PO PRN (20:59)
[2018-08-16] MEDS: diphenhydrAMINE HCL 25 MG CAPSULE PO PRN (21:00)
[2018-08-16 23:43] VITALS: BP 125/54
[2018-08-17] VITALS (7 sets, daily range): BP systolic 103–145; BP diastolic 36–56
[2018-08-17] MEDS: IV 1/2 NORMAL SALINE 1,000 ML IV SCH ×2 (00:23→16:00)
--- NOTE | 2018-08-17 06:52 | PDOC ---
PULMONARY PROGRESS NOTES Subjective used trilogy last night, now on 02, gets sob w any activity, has occ cough, not worse. no pain Vitals Vital Signs Date Time Temp Pulse Resp B/P (MAP) Pulse Ox O2 Delivery O2 Flow Rate FiO2 08/17/18 03:30 97.7 66 21 145/43 (77) 96 Nasal Cannula 97.7 08/16/18 22:02 4.0 ROS: No Nausea, No Chest Pain General: Alert HEENT: Other (nc at perrl ) Lungs: Crackles Cardiovascular: S1, S2 Abdomen: Soft, Non-tender Neuro Exam: Alert Extremities: Other (edema) Skin: Warm Labs Laboratory Tests Test 08/15/18 10:55 08/16/18 03:30 08/16/18 13:55 White Blood Count 10.5 x10^3/uL (4.0-11.0) 10.7 x10^3/uL (4.0-11.0) Red Blood Count 3.79 x10^6/uL (3.50-5.40) 3.59 x10^6/uL (3.50-5.40) Hemoglobin 11.7 g/dL (12.0-15.5) 11.1 g/dL (12.0-15.5) Hematocrit 36.5 % (36.0-47.0) 34.8 % (36.0-47.0) Mean Corpuscular Volume 96 fL (79-100) 97 fL (79-100) Mean Corpuscular Hemoglobin 31 pg (25-35) 31 pg (25-35) Mean Corpuscular Hemoglobin Concent 32 g/dL (31-37) 32 g/dL (31-37) Red Cell Distribution Width 14.1 % (11.5-14.5) 13.7 % (11.5-14.5) Platelet Count 290 x10^3/uL (140-400) 266 x10^3/uL (140-400) Neutrophils (%) (Auto) 72 % (31-73) Lymphocytes (%) (Auto) 6 % (24-48) Monocytes (%) (Auto) 10 % (0-9) Eosinophils (%) (Auto) 11 % (0-3) Basophils (%) (Auto) 1 % (0-3) Neutrophils # (Auto) 7.6 x10^3uL (1.8-7.7) Lymphocytes # (Auto) 0.6 x10^3/uL (1.0-4.8) Monocytes # (Auto) 1.1 x10^3/uL (0.0-1.1) Eosinophils # (Auto) 1.2 x10^3/uL (0.0-0.7) Basophils # (Auto) 0.1 x10^3/uL (0.0-0.2) Segmented Neutrophils % 67 % (35-66) Band Neutrophils % 6 % (0-9) Lymphocytes % 11 % (24-48) Monocytes % 5 % (0-10) Eosinophils % 11 % (0-5) Platelet Estimate Adequate (ADEQUATE) Prothrombin Time 14.0 SEC (11.7-14.0) Prothromb Time International Ratio 1.1 (0.8-1.1) Sodium Level 144 mmol/L (136-145) 138 mmol/L (136-145) Potassium Level 3.9 mmol/L (3.5-5.1) 4.1 mmol/L (3.5-5.1) Chloride Level 101 mmol/L (98-107) 100 mmol/L (98-107) Carbon Dioxide Level 38 mmol/L (21-32) 31 mmol/L (21-32) Anion Gap 5 (6-14) 7 (6-14) Blood Urea Nitrogen 20 mg/dL (7-20) 18 mg/dL (7-20) Creatinine 1.2 mg/dL (0.6-1.0) 1.1 mg/dL (0.6-1.0) Estimated GFR (Cockcroft-Gault) 54.4 49.7 Glucose Level 93 mg/dL (70-99) 109 mg/dL (70-99) Calcium Level 9.4 mg/dL (8.5-10.1) 9.0 mg/dL (8.5-10.1) BUN/Creatinine Ratio 16 (6-20) Total Bilirubin 0.7 mg/dL (0.2-1.0) Aspartate Amino Transf (AST/SGOT) 15 U/L (15-37) Alanine Aminotransferase (ALT/SGPT) 21 U/L (14-59) Alkaline Phosphatase 55 U/L (46-116) Total Protein 7.5 g/dL (6.4-8.2) Albumin 3.5 g/dL (3.4-5.0) Albumin/Globulin Ratio 0.9 (1.0-1.7) O2 Saturation 95 % (92-99) Arterial Blood pH 7.38 (7.35-7.45) Arterial Blood pCO2 at Patient Temp 60 mmHg (35-46) Arterial Blood pO2 at Patient Temp 76 mmHg (65-108) Arterial Blood HCO3 35 mmol/L (21-28) Arterial Blood Base Excess 8 mmol/L (-3-3) FiO2 36 Laboratory Tests Test 08/16/18 13:55 O2 Saturation 95 % (92-99) Arterial Blood pH 7.38 (7.35-7.45) Arterial Blood pCO2 at Patient Temp 60 mmHg (35-46) Arterial Blood pO2 at Patient Temp 76 mmHg (65-108) Arterial Blood HCO3 35 mmol/L (21-28) Arterial Blood Base Excess 8 mmol/L (-3-3) FiO2 36 Medications Active Scripts Medications Dose Route/Sig Max Daily Dose Days Date Category Requip (Ropinirole Hcl) 0.5 Mg Tablet 1 Tab PO QHS 08/15/18 Reported Prednisone 1 Mg Tablet 5 Mg PO DAILY 08/15/18 Reported Mucinex (Guaifenesin) 600 Mg Tablet.er 600 Mg PO BID 08/15/18 Reported Simvastatin 10 Mg Tablet 10 Mg PO HS 08/15/18 Reported Daliresp (Roflumilast) 500 Mcg Tablet 1 Tab PO DAILY 08/15/18 Reported Polyethylene Glycol 3350 255 Gm Powder 17 Gm PO DAILY 08/15/18 Reported Protonix (Pantoprazole Sodium) 20 Mg Tablet.dr 40 Mg PO DAILY 08/15/18 Reported Nystatin 15 Gm Cream..g. 1 Eliana TP BID 08/15/18 Reported Singulair Tablet (Montelukast Sodium) 10 Mg Tablet 10 Mg PO HS 08/15/18 Reported Melatonin 3 Mg Tablet 1 Tab PO QHS 08/15/18 Reported Lorazepam 0.5 Mg Tablet 0.5 Mg PO PRN Q8HRS PRN 08/15/18 Reported Levothyroxine Sodium 88 Mcg Tablet 88 Mcg PO DAILYAC 08/15/18 Reported Ipratropium [place] 0.2 Mg/1 Ml Solution 1 Vial NEB QID 08/15/18 Reported Furosemide 20 Mg Tablet 1 Tab PO DAILY 08/15/18 Reported Flonase Allergy Relief (Fluticasone Propionate) 9.9 Ml [place].susp 2 Sprays NS DAILY 08/15/18 Reported Pepcid (Famotidine) 20 Mg Tablet 20 Mg PO BID 08/15/18 Reported Vitamin D (Cholecalciferol (Vitamin D3)) 1,000 Unit Capsule 1 Cap PO DAILY 08/15/18 Reported Cetirizine Hcl 10 Mg Tablet 1 Tab PO DAILY 08/15/18 Reported Proair Hfa Inhaler (Albuterol Sulfate) 8.5 Gm Hfa.aer.ad 1 Puff INH PRN Q6HRS PRN 08/15/18 Reported Comments cxr reviewed, 1. Linear and hazy basilar atelectasis or infiltrates with little change. Impression . IMPRESSION: 1. Chronic respiratory failure. 2. Chronic obstructive pulmonary disease, suspect severe. 3. Obesity, probable obstructive sleep apnea-hypopnea syndrome and obesity hypoventilation syndrome. 4. Severe mitral stenosis. 5. Anemia. 6. Hypothyroidism. 7. History of congestive heart failure. Plan . PLAN AND RECOMMENDATIONS: 1. Titrate FiO2 to keep O2 saturation 92%. 2. Continue Trilogy during sleep. 3. Bronchodilator. 4. inhaled corticosteroid. 5. Continue prednisone, since she has been on prednisone for at least 1 year. 6. Continue Daliresp. 7. inhaled corticosteroid. 8. ABG reviewed, complete PFTs in am. 9. Chest x-ray reviewed, has hx of 60 py smoking, quit a yr ago, will do CT of the chest. 10. She has COPD, which I suspect it is severe, steroid and oxygen dependent. She has chronic respiratory failure. She is morbidly obese. She has deconditioning and possible obstructive sleep apnea-hypopnea syndrome and obesity hypoventilation syndrome. I suspect she would be at high risk of developing pulmonary complications in the perioperative period. PFTs on saturday and ABG reviewed, chronic hypercarbic hypoxemic resp fail 11. The findings and recommendations were discussed with the patient and SERGIO NICHOLAS MD Aug 17, 2018 06:52
[2018-08-17] MEDS: BUDESONIDE 0.5 MG/2 ML NEBU. NEB SCH ×2 (07:57→19:58)
[2018-08-17] MEDS: IPRATROPIUM BROMIDE 0.5 MG/2.5 ML NEBU. NEB SCH ×4 (07:58→19:57)
[2018-08-17] MEDS: CHOLECALCIFEROL (VITAMIN D3) 1,000 UNIT TABLET PO SCH (08:24)
[2018-08-17] MEDS: CETIRIZINE HCL 10 MG TABLET. PO SCH (08:24)
[2018-08-17] MEDS: ROFLUMILAST 500 MCG TABLET. PO SCH (08:24)
[2018-08-17] MEDS: FUROSEMIDE 20 MG TABLET PO SCH (08:24)
[2018-08-17] MEDS: FLUTICASONE 50MCG/NASAL SPRAY 16GM BOTTLE. NS SCH (08:25)
[2018-08-17] MEDS: POLYETHYLENE GLYCOL 3350 17 GM PACKET. PO SCH (08:25)
[2018-08-17] MEDS: PANTOPRAZOLE 40 MG TABLET.DR. PO SCH (08:25)
[2018-08-17] MEDS: FAMOTIDINE 20 MG TABLET. PO SCH ×2 (08:25→20:24)
[2018-08-17] MEDS: predniSONE 5 MG TABLET PO SCH (08:25)
[2018-08-17] MEDS: LEVOTHYROXINE 88 MCG TABLET PO SCH (08:25)
[2018-08-17] MEDS: METOPROLOL TART IMMED RELEASE 25 MG TABLET. PO SCH ×2 (08:27→21:29)
[2018-08-17] MEDS: NYSTATIN 100,000 UNIT/GM TOPICAL CREAM 15GM TUBE. TP SCH ×2 (08:27→21:00)
--- NOTE | 2018-08-17 08:27 | RAD ---
Examination: CT chest without contrast HISTORY: History of shortness of breath COMPARISON: None available TECHNIQUE: Axial CT images of chest were performed without contrast. Coronal and sagittal reformats are performed Exposure: One or more of the following individualized dose reduction techniques were utilized for this examination: 1. Automated exposure control 2. Adjustment of the mA and/or kV according to patient size 3. Use of iterative reconstruction technique FINDINGS: The central airways are patent. Mild cardiomegaly. Coronary artery calcifications identified. Small mediastinal lymph nodes identified with the largest measuring 1.1 cm. Diffuse bilateral lung emphysematous changes. There is a focus of airspace opacity identified in the right middle lobe of the lung measuring 8 mm, likely small nodule or focus of atelectasis. Mild bibasilar lung airspace opacities likely atelectasis or infiltrates. The visualized noncontrasted liver, spleen, adrenals grossly appears unremarkable. Cholecystectomy clips identified. Mild degenerative changes thoracic spine. Moderate aortic atherosclerosis. IMPRESSION: 1. 8mm focus of airspace opacity identified in the right middle lobe of the lung likely a small nodular focus of atelectasis. Follow-up per Fleischner Society guidelines with a follow-up CT in 3-6 months. 2. Moderate lung emphysematous changes. 3. Mild left lung base airspace opacities likely atelectasis or infiltrates. 4. Few prominent mediastinal lymph nodes, nonspecific. Electronically signed by: Sami Hairston MD (08/17/2018 8:24 AM) [facility]
--- NOTE | 2018-08-17 09:07 | PN ---
DATE: 08/17/2018 SUBJECTIVE: The patient is sitting up in her bed, eating her breakfast comfortably and in no apparent distress. On questioning her, she denied any complaints and the nursing staff did not voice any concerns that she had an eventful night. She apparently was seen yesterday by the cardiothoracic surgeon who does not think that she is a good candidate for mitral valve replacement surgically. Given her pulmonary status, the only other options are balloon valvuloplasty or referred for transcatheter mitral valve replacement. PHYSICAL EXAMINATION: GENERAL: When I examined her, she looked well and was clearly in no apparent respiratory distress, slightly pale, no jaundice, cyanosis or thyromegaly. No jugular venous distension. No lower limb edema. VITAL SIGNS: Her heart rate was 74, blood pressure 133/53, temperature was 97.5, respiratory rate was 21 and oxygen saturation was 99% on 4 liters of oxygen. HEAD, EYES, EARS, NOSE AND THROAT: Showed normocephalic, atraumatic. NECK: Supple. HEART: Showed normal first and second heart sounds. No gallop, rub or murmur. CHEST: Shows central trachea, equally reduced expansion, reduced air entry, very few scattered rhonchi, could not appreciate any crepitation. ABDOMEN: Markedly distended, soft, nontender. NEUROLOGIC: She is awake, alert, responding appropriately. All her cranial nerves intact. She moves extremities without difficulty. She ambulates with a walker. Her intake over the last 24 hours was 750, output was 525. LABORATORY DATA: As of yesterday showed a white cell count of 10,700, hemoglobin 11, hematocrit 35, MCV 97 and platelet count 266,000. Her chemistry showed a serum sodium 138, potassium 4.1, chloride 100, bicarbonate 31, anion gap of 7, BUN 18, creatinine 1.1, estimated GFR was 49 mL per minute. Her glucose was 109. Calcium was 9. Total bilirubin, AST, ALT, alkaline phosphatase were normal. Total protein 7.5, albumin 3.5. ASSESSMENT: 1. Acute on chronic hypoxic hypercapnic respiratory failure. 2. Chronic obstructive pulmonary disease exacerbation. 3. Acute on chronic diastolic congestive heart failure. 4. Severe mitral stenosis. 5. Morbid obesity, obstructive sleep apnea. PLAN: Obviously to continue with a Trilogy at night time and oxygen saturation in daytime. Continue bronchodilators and steroids. She is apparently scheduled for pulmonary function test tomorrow and has had a CT scan of the chest done this morning, the results are still pending. KESHIA CORDERO MD DR: KIRSTEN/tami JOB#: [id number] / [id number]
--- NOTE | 2018-08-17 10:25 | PDOC ---
CARDIOLOGY PROGRESS NOTE SUBJECTIVE: No acute events overnight. Continues to have dyspnea related mostly to her lung issues. Hypercapneic by ABG OBJECTIVE: Vital SIgns: Vital Signs Date Time Temp Pulse Resp B/P (MAP) Pulse Ox O2 Delivery O2 Flow Rate FiO2 08/17/18 08:27 74 133/53 08/17/18 07:59 99 Nasal Cannula 4.0 08/17/18 07:04 97.5 21 97.5 I & O Intake and Output 08/17/18 06:59 Intake Total 1000 ml Output Total 200 ml Balance 800 ml Intake Oral 1000 ml Output Urine Total 200 ml # Voids 4 # Bowel Movements 3 Objective: No significant changes to exam. Distant heart sounds No edema. CURRENT MEDICATIONS: Metoprolol 25mg bid. DIAGNOSTIC TESTING: CT chest with moderate emphysematous changes ASSESSMENT: 1. Severe mitral stenosis 2. Morbid obesity 3. COPD PLAN: 1. Reviewed CT surgery notes. Would optimize pulmonary function and plan for outpt referral to [facility] for PBM[facility] versus transcatheter replacement. 2. Continue present meds. Supportive care. YADIRA TOLENTINO MD Aug 17, 2018 10:25
[2018-08-17] MEDS: HYDROcodone/APAP 5/325MG 1 TAB TABLET PO PRN ×2 (12:03→21:29)
[2018-08-17] MEDS: ONDANSETRON PF 4 MG/2 ML VIAL. IV PRN (20:24)
[2018-08-17] MEDS: diphenhydrAMINE HCL 25 MG CAPSULE PO PRN (21:28)
[2018-08-17] MEDS: rOPINIRole 0.25 MG TABLET. PO SCH (21:28)
[2018-08-17] MEDS: LORazepam 0.5 MG TABLET PO PRN (21:28)
[2018-08-17] MEDS: MONTELUKAST SODIUM 10 MG TABLET. PO SCH (21:29)
[2018-08-17] MEDS: SIMVASTATIN 10 MG TABLET PO SCH (21:29)
[2018-08-18 03:30] VITALS: BP 96/48
[2018-08-18] MEDS: LEVOTHYROXINE 88 MCG TABLET PO SCH (05:50)
[2018-08-18] MEDS: HYDROcodone/APAP 5/325MG 1 TAB TABLET PO PRN ×2 (05:50→21:35)
[2018-08-18] MEDS: IV 1/2 NORMAL SALINE 1,000 ML IV SCH (07:06)
[2018-08-18 07:55] VITALS: BP 119/51
[2018-08-18] MEDS: BUDESONIDE 0.5 MG/2 ML NEBU. NEB SCH ×2 (08:15→19:49)
[2018-08-18] MEDS: IPRATROPIUM BROMIDE 0.5 MG/2.5 ML NEBU. NEB SCH ×4 (08:15→19:49)
[2018-08-18] MEDS: CETIRIZINE HCL 10 MG TABLET. PO SCH (08:39)
[2018-08-18] MEDS: predniSONE 5 MG TABLET PO SCH (08:39)
[2018-08-18] MEDS: POLYETHYLENE GLYCOL 3350 17 GM PACKET. PO SCH (08:39)
[2018-08-18] MEDS: FUROSEMIDE 20 MG TABLET PO SCH (08:39)
[2018-08-18] MEDS: CHOLECALCIFEROL (VITAMIN D3) 1,000 UNIT TABLET PO SCH (08:39)
[2018-08-18] MEDS: ROFLUMILAST 500 MCG TABLET. PO SCH (08:39)
[2018-08-18] MEDS: FAMOTIDINE 20 MG TABLET. PO SCH ×2 (08:39→21:30)
[2018-08-18] MEDS: METOPROLOL TART IMMED RELEASE 25 MG TABLET. PO SCH ×2 (08:40→21:31)
[2018-08-18] MEDS: PANTOPRAZOLE 40 MG TABLET.DR. PO SCH (08:40)
[2018-08-18] MEDS: FLUTICASONE 50MCG/NASAL SPRAY 16GM BOTTLE. NS SCH (08:40)
[2018-08-18] MEDS: LORazepam 0.5 MG TABLET PO PRN ×2 (08:43→21:34)
[2018-08-18] MEDS: NYSTATIN 100,000 UNIT/GM TOPICAL CREAM 15GM TUBE. TP SCH ×2 (09:00→21:00)
[2018-08-18 11:25] VITALS: BP 114/45
--- NOTE | 2018-08-18 11:36 | PDOC ---
ARLINE SORTO APRN 08/18/18 1136: CARDIO Progress Notes Date and Time Date of Service 08/18/18 Time of Evaluation 1110 Subjective Subjective: No Chest Pain, No shortness of breath (at rest. C/o FERRELL) Vitals Vitals Vital Signs Date Time Temp Pulse Resp B/P (MAP) Pulse Ox O2 Delivery O2 Flow Rate FiO2 08/18/18 08:40 70 119/51 08/18/18 08:16 99 Nasal Cannula 4.0 08/18/18 07:55 97.8 24 97.8 Weight Weight [ ] Input and Output Intake and Output Intake and Output 08/18/18 07:00 Intake Total 500 ml Output Total 2700 ml Balance -2200 ml Intake Oral 500 ml Output Urine Total 2700 ml # Bowel Movements 1 Physical Exam HEENT: Neck Supple W Full Motion LUNGS: Other (diminished throughout ) Heart: S1S2, RRR Abdomen: Soft N/T Extremities: No Edema, Other (bilateral LE venous stasis changes) Neurology: alert, oriented, follow commands Assessment Assessment 1. Severe mitral stenosis. Poor open candidate. 2. Morbid obesity, hypoventilation syndrome 3. COPD, chronic hypercapnic respiratory failure 4. Pulmonary HTN; PAP 46 mmHg. 5. Hypertension 6. Hyperlipidemia Recommendations Lung optimization Outpatient referral for possible balloon valvuloplasty versus transcatheter mitral valve replacement. Supportive care YADIRA TOLENTINO MD 08/18/18 2330: CARDIO Progress Notes Plan Plan Pt. seen and examined. Agree with above Physical Therapist Aide note. She is at high risk for open surgical tx of her mitral valve. Although she has mitral stenosis, I am not clear what degree this is contributing to her symptoms. Best option would be a trial of mitral valvuloplasty and determine if this helps her symptoms. She has severe COPD. Tx per PCP and Dr. Medeiros We will help coordinate her appt with [facility]. Thanks ARLINE SORTO APRN Aug 18, 2018 11:36 YADIRA TOLENTINO MD Aug 18, 2018 23:30
--- NOTE | 2018-08-18 12:54 | PDOC ---
PULMONARY PROGRESS NOTES Subjective used trilogy last night, now on 02, gets sob w any activity, has occ cough, not worse. no pain Vitals Vital Signs Date Time Temp Pulse Resp B/P (MAP) Pulse Ox O2 Delivery O2 Flow Rate FiO2 08/18/18 11:56 96 Nasal Cannula 4.0 08/18/18 11:25 65 114/45 (68) 08/18/18 07:55 97.8 24 97.8 ROS: No Nausea, No Chest Pain General: Alert HEENT: Other (nc at perrl ) Lungs: Crackles Cardiovascular: S1, S2 Abdomen: Soft, Non-tender Neuro Exam: Alert Extremities: No Edema Skin: Warm Labs Laboratory Tests Test 08/16/18 13:55 O2 Saturation 95 % (92-99) Arterial Blood pH 7.38 (7.35-7.45) Arterial Blood pCO2 at Patient Temp 60 mmHg (35-46) Arterial Blood pO2 at Patient Temp 76 mmHg (65-108) Arterial Blood HCO3 35 mmol/L (21-28) Arterial Blood Base Excess 8 mmol/L (-3-3) FiO2 36 Medications Active Scripts Medications Dose Route/Sig Max Daily Dose Days Date Category Requip (Ropinirole Hcl) 0.5 Mg Tablet 1 Tab PO QHS 08/15/18 Reported Prednisone 1 Mg Tablet 5 Mg PO DAILY 08/15/18 Reported Mucinex (Guaifenesin) 600 Mg Tablet.er 600 Mg PO BID 08/15/18 Reported Simvastatin 10 Mg Tablet 10 Mg PO HS 08/15/18 Reported Daliresp (Roflumilast) 500 Mcg Tablet 1 Tab PO DAILY 08/15/18 Reported Polyethylene Glycol 3350 255 Gm Powder 17 Gm PO DAILY 08/15/18 Reported Protonix (Pantoprazole Sodium) 20 Mg Tablet.dr 40 Mg PO DAILY 08/15/18 Reported Nystatin 15 Gm Cream..g. 1 Eliana TP BID 08/15/18 Reported Singulair Tablet (Montelukast Sodium) 10 Mg Tablet 10 Mg PO HS 08/15/18 Reported Melatonin 3 Mg Tablet 1 Tab PO QHS 08/15/18 Reported Lorazepam 0.5 Mg Tablet 0.5 Mg PO PRN Q8HRS PRN 08/15/18 Reported Levothyroxine Sodium 88 Mcg Tablet 88 Mcg PO DAILYAC 08/15/18 Reported Ipratropium [place] 0.2 Mg/1 Ml Solution 1 Vial NEB QID 08/15/18 Reported Furosemide 20 Mg Tablet 1 Tab PO DAILY 08/15/18 Reported Flonase Allergy Relief (Fluticasone Propionate) 9.9 Ml [place].susp 2 Sprays NS DAILY 08/15/18 Reported Pepcid (Famotidine) 20 Mg Tablet 20 Mg PO BID 08/15/18 Reported Vitamin D (Cholecalciferol (Vitamin D3)) 1,000 Unit Capsule 1 Cap PO DAILY 08/15/18 Reported Cetirizine Hcl 10 Mg Tablet 1 Tab PO DAILY 08/15/18 Reported Proair Hfa Inhaler (Albuterol Sulfate) 8.5 Gm Hfa.aer.ad 1 Puff INH PRN Q6HRS PRN 08/15/18 Reported Comments cxr reviewed, 1. Linear and hazy basilar atelectasis or infiltrates with little change. Impression . IMPRESSION: 1. Chronic hypoxic / hypercapnic respiratory failure. 2. Chronic obstructive pulmonary disease, suspect severe. 3. Obesity, probable obstructive sleep apnea-hypopnea syndrome and obesity hypoventilation syndrome. 4. Severe mitral stenosis. 5. Anemia. 6. Hypothyroidism. 7. History of congestive heart failure. Plan . PLAN AND RECOMMENDATIONS: 1. Titrate FiO2 to keep O2 saturation 92%. 2. Continue Trilogy during sleep. 3. Bronchodilator. 4. inhaled corticosteroid. 5. Continue prednisone, since she has been on prednisone for at least 1 year. 6. Continue Daliresp. 7. inhaled corticosteroid. 8. ABG reviewed, compensated respiratory acidosis . spirometry today. 9. Chest x-ray reviewed, has hx of 60 py smoking, quit a yr ago, ct chest with 8mm focus of airspace opacity identified in the right middle lobe of the lung likely a small nodular focus of atelectasis. 10. She has COPD, which I suspect it is severe, steroid and oxygen dependent. She has chronic respiratory failure. She is morbidly obese. She has deconditioning and possible obstructive sleep apnea-hypopnea syndrome and obesity hypoventilation syndrome. I suspect she would be at high risk of developing pulmonary complications in the perioperative period. 11. The findings and recommendations were discussed with the patient and YONG velazquez with id home today or DEANA Caballero MD Aug 18, 2018 12:54
--- NOTE | 2018-08-18 13:25 | NUR ---
SS following for discharge planning. SS reviewed pt chart. Pt is from home and currently requiring oxygen. Discharge order for home health. SS met with pt's RN. Pt's RN reported that Dr. Rangel has decided to discharge tomorrow, 08/19/2018, and will complete discharge instructions at that time. SS will await discharge instructions for home healthcare and will proceed accordingly.
[2018-08-18 15:35] VITALS: BP 114/52
--- NOTE | 2018-08-18 17:51 | NUR ---
Patient wants to be rehab upon discharge
--- NOTE | 2018-08-18 17:54 | NUR ---
Patient's preference for rehab is [facility] if she determines that is the best option for her. Patient instructed to make sure she tells Dr. Rangel that she feels that she needs rehab.
[2018-08-18 19:00] VITALS: BP 109/60
[2018-08-18] MEDS: rOPINIRole 0.25 MG TABLET. PO SCH (21:30)
[2018-08-18] MEDS: SIMVASTATIN 10 MG TABLET PO SCH (21:30)
[2018-08-18] MEDS: MONTELUKAST SODIUM 10 MG TABLET. PO SCH (21:30)
[2018-08-18] MEDS: diphenhydrAMINE HCL 25 MG CAPSULE PO PRN (21:35)
--- NOTE | 2018-08-18 21:54 | PN ---
DATE: 08/18/2018 SUBJECTIVE: The patient was admitted for evaluation and possible surgical treatment of her severe mitral stenosis. She apparently underwent cardiac catheterization, which showed that the patient has no significant coronary artery disease; however, she has normal left ventricular systolic function, ejection fraction of 65%; however, she has severe mitral valve stenosis with a mean gradient of 13.3 mmHg and calculated mitral valve area of 1.24 square cm and moderate pulmonary hypertension. She was seen in consultation by the powersaw supervisor as well as the cardiothoracic surgeon who thinks the patient's pulmonary status makes her a prohibitive risk for open heart surgery. As her baseline carbon dioxide is 60, she is morbidly obese and has poor functional status makes things even worse and the other options available are either balloon valvuloplasty or referral for a transcatheter mitral valve replacement. She is scheduled for pulmonary function test to be done today and eventually we will discharge her home with arrangements for her to be referred to [facility] for balloon valvuloplasty versus transcatheter valve replacement. PHYSICAL EXAMINATION: GENERAL: When I saw her this morning, she was sitting comfortably in her bed, in no apparent respiratory distress. She was somewhat pale, but no jaundice, cyanosis, or thyromegaly. No jugular venous distension. No lower limb edema. VITAL SIGNS: Her heart rate was 79, blood pressure 119/51, temperature was 97.8, respiratory rate was 24, and oxygen saturation was 99% on 4 liters of oxygen. HEAD, EYES, EARS, NOSE AND THROAT: Showed normocephalic, atraumatic. NECK: Supple. HEART: Showed normal first and second heart sounds. No gallop, rub or murmur. CHEST: Shows central trachea, equal bilateral chest expansion, air entry, vesicular sounds, bilateral scattered rhonchi. I could not appreciate any crepitation. ABDOMEN: Distended, soft, nontender. NEUROLOGIC: She is awake, alert, responding appropriately. All cranial nerves intact. She moves extremities without difficulty. She ambulates with a walker. Her intake was 1000, output was 200. LABORATORY DATA: Yesterday, her white cell count was 10,700, hemoglobin 11, hematocrit 35, MCV 97 and platelet count 266,000. Her chemistry showed a BUN of 18, creatinine 1.1. ASSESSMENT: 1. Acute on chronic hypoxic hypercapnic respiratory failure. 2. Chronic obstructive pulmonary disease exacerbation. 3. Acute on chronic diastolic congestive heart failure. 4. Severe mitral stenosis. 5. Morbid obesity, obstructive sleep apnea. PLAN: Obviously to continue with Trilogy at night time and oxygen supplementation during daytime. Continue with bronchodilator and steroids. She is scheduled for pulmonary function test today and the CT scan of the chest was done yesterday showed moderate lung emphysematous changes. She has mild left lung base airspace opacities, likely atelectasis or infiltrate. My plan is to obviously discharge her home tomorrow with home health once all her evaluation by the shirt marker and powersaw supervisor has been completed. KESHIA CORDERO MD DR: KIRSTEN/tami JOB#: [id number] / [id number]
[2018-08-18 23:00] VITALS: BP 105/60
[2018-08-19 03:00] VITALS: BP 148/69
[2018-08-19 07:00] VITALS: BP 114/56
[2018-08-19] MEDS: IPRATROPIUM BROMIDE 0.5 MG/2.5 ML NEBU. NEB SCH ×4 (07:23→20:11)
[2018-08-19] MEDS: BUDESONIDE 0.5 MG/2 ML NEBU. NEB SCH ×2 (07:23→20:00)
[2018-08-19 07:55] LABS: CREATININE 0.9 mg/dL (0.6-1.0); GFR 62.6
[2018-08-19] MEDS: ROFLUMILAST 500 MCG TABLET. PO SCH (08:47)
[2018-08-19] MEDS: HYDROcodone/APAP 5/325MG 1 TAB TABLET PO PRN ×2 (08:47→21:48)
[2018-08-19] MEDS: FUROSEMIDE 20 MG TABLET PO SCH (08:47)
[2018-08-19] MEDS: predniSONE 5 MG TABLET PO SCH (08:47)
[2018-08-19] MEDS: FLUTICASONE 50MCG/NASAL SPRAY 16GM BOTTLE. NS SCH (08:47)
[2018-08-19] MEDS: CHOLECALCIFEROL (VITAMIN D3) 1,000 UNIT TABLET PO SCH (08:47)
[2018-08-19] MEDS: LEVOTHYROXINE 88 MCG TABLET PO SCH (08:47)
[2018-08-19] MEDS: FAMOTIDINE 20 MG TABLET. PO SCH ×2 (08:48→21:47)
[2018-08-19] MEDS: POLYETHYLENE GLYCOL 3350 17 GM PACKET. PO SCH (08:48)
[2018-08-19] MEDS: PANTOPRAZOLE 40 MG TABLET.DR. PO SCH (08:48)
[2018-08-19] MEDS: METOPROLOL TART IMMED RELEASE 25 MG TABLET. PO SCH ×2 (08:48→21:47)
[2018-08-19] MEDS: CETIRIZINE HCL 10 MG TABLET. PO SCH (08:48)
[2018-08-19] MEDS: NYSTATIN 100,000 UNIT/GM TOPICAL CREAM 15GM TUBE. TP SCH ×2 (08:51→21:00)
[2018-08-19] MEDS: LORazepam 0.5 MG TABLET PO PRN ×2 (08:55→21:48)
--- NOTE | 2018-08-19 09:45 | PDOC ---
PULMONARY PROGRESS NOTES Subjective used trilogy last night, now on 02, gets sob w any activity, has occ cough, not worse. no pain Vitals Vital Signs Date Time Temp Pulse Resp B/P (MAP) Pulse Ox O2 Delivery O2 Flow Rate FiO2 08/19/18 08:48 70 114/56 08/19/18 07:25 97 Nasal Cannula 4.0 08/19/18 07:00 97.8 22 97.8 ROS: No Nausea, No Chest Pain General: Alert HEENT: Other (nc at perrl ) Lungs: Crackles Cardiovascular: S1, S2 Abdomen: Soft, Non-tender Neuro Exam: Alert Extremities: No Edema Skin: Warm Labs Laboratory Tests Test 08/19/18 04:38 Sodium Level 143 mmol/L (136-145) Potassium Level 4.0 mmol/L (3.5-5.1) Chloride Level 100 mmol/L (98-107) Carbon Dioxide Level 38 mmol/L (21-32) Anion Gap 5 (6-14) Blood Urea Nitrogen 19 mg/dL (7-20) Creatinine 0.9 mg/dL (0.6-1.0) Estimated GFR (Cockcroft-Gault) 62.6 Glucose Level 95 mg/dL (70-99) Calcium Level 9.0 mg/dL (8.5-10.1) Laboratory Tests Test 08/19/18 04:38 Sodium Level 143 mmol/L (136-145) Potassium Level 4.0 mmol/L (3.5-5.1) Chloride Level 100 mmol/L (98-107) Carbon Dioxide Level 38 mmol/L (21-32) Anion Gap 5 (6-14) Blood Urea Nitrogen 19 mg/dL (7-20) Creatinine 0.9 mg/dL (0.6-1.0) Estimated GFR (Cockcroft-Gault) 62.6 Glucose Level 95 mg/dL (70-99) Calcium Level 9.0 mg/dL (8.5-10.1) Medications Active Scripts Medications Dose Route/Sig Max Daily Dose Days Date Category Requip (Ropinirole Hcl) 0.5 Mg Tablet 1 Tab PO QHS 08/15/18 Reported Prednisone 1 Mg Tablet 5 Mg PO DAILY 08/15/18 Reported Mucinex (Guaifenesin) 600 Mg Tablet.er 600 Mg PO BID 08/15/18 Reported Simvastatin 10 Mg Tablet 10 Mg PO HS 08/15/18 Reported Daliresp (Roflumilast) 500 Mcg Tablet 1 Tab PO DAILY 08/15/18 Reported Polyethylene Glycol 3350 255 Gm Powder 17 Gm PO DAILY 08/15/18 Reported Protonix (Pantoprazole Sodium) 20 Mg Tablet.dr 40 Mg PO DAILY 08/15/18 Reported Nystatin 15 Gm Cream..g. 1 Eliana TP BID 08/15/18 Reported Singulair Tablet (Montelukast Sodium) 10 Mg Tablet 10 Mg PO HS 08/15/18 Reported Melatonin 3 Mg Tablet 1 Tab PO QHS 08/15/18 Reported Lorazepam 0.5 Mg Tablet 0.5 Mg PO PRN Q8HRS PRN 08/15/18 Reported Levothyroxine Sodium 88 Mcg Tablet 88 Mcg PO DAILYAC 08/15/18 Reported Ipratropium [place] 0.2 Mg/1 Ml Solution 1 Vial NEB QID 08/15/18 Reported Furosemide 20 Mg Tablet 1 Tab PO DAILY 08/15/18 Reported Flonase Allergy Relief (Fluticasone Propionate) 9.9 Ml [place].susp 2 Sprays NS DAILY 08/15/18 Reported Pepcid (Famotidine) 20 Mg Tablet 20 Mg PO BID 08/15/18 Reported Vitamin D (Cholecalciferol (Vitamin D3)) 1,000 Unit Capsule 1 Cap PO DAILY 08/15/18 Reported Cetirizine Hcl 10 Mg Tablet 1 Tab PO DAILY 08/15/18 Reported Proair Hfa Inhaler (Albuterol Sulfate) 8.5 Gm Hfa.aer.ad 1 Puff INH PRN Q6HRS PRN 08/15/18 Reported Comments cxr reviewed, 1. Linear and hazy basilar atelectasis or infiltrates with little change. Impression . IMPRESSION: 1. Chronic hypoxic / hypercapnic respiratory failure. 2. Chronic obstructive pulmonary disease, suspect severe. 3. Obesity, probable obstructive sleep apnea-hypopnea syndrome and obesity hypoventilation syndrome. 4. Severe mitral stenosis. 5. Anemia. 6. Hypothyroidism. 7. History of congestive heart failure. Plan . PLAN AND RECOMMENDATIONS: 1. Titrate FiO2 to keep O2 saturation 92%. 2. Continue Trilogy during sleep. 3. Bronchodilator. 4. inhaled corticosteroid. 5. Continue prednisone, since she has been on prednisone for at least 1 year. 6. Continue Daliresp. 7. inhaled corticosteroid. 8. ABG reviewed, compensated respiratory acidosis . spirometry done 9. Chest x-ray reviewed, has hx of 60 py smoking, quit a yr ago, ct chest with 8mm focus of airspace opacity identified in the right middle lobe of the lung likely a small nodular focus of atelectasis. 10. She has COPD, which I suspect it is severe, steroid and oxygen dependent. She has chronic respiratory failure. She is morbidly obese. She has deconditioning and possible obstructive sleep apnea-hypopnea syndrome and obesity hypoventilation syndrome. I suspect she would be at high risk of developing pulmonary complications in the perioperative period. ok with dc home today DEANA DOUGLAS MD Aug 19, 2018 09:45
--- NOTE | 2018-08-19 10:14 | SNU/HH DC ---
DISCHARGE ORDERS DISCHARGE INFORMATION: CONDITION ON DISCHARGE: Stable CODE STATUS: Code Status: Full SHELTER: SNF STAY <30 DAYS: Yes POST DISCHARGE ORDERS: ACTIVITY ORDERS: Activity as tolerated DIET AFTER DISCHARGE: Cardiac TREATMENT/EQUIPMENT ORDERS: Physical Therapy For: Evalulation/Treatment Occupational Therapy For: Evaluation/Treatment DISCHARGE MEDICATIONS: Home Meds Reported Medications Ropinirole Hcl (REQUIP) 0.5 Mg Tablet, 1 TAB PO QHS for requip, #30 TAB 1 Refill 08/15/18 Prednisone (PREDNISONE) 1 Mg Tablet, 5 MG PO DAILY for prednisone, TAB 08/15/18 Guaifenesin (MUCINEX) 600 Mg Tablet.er, 600 MG PO BID for cough, TAB.SR 08/15/18 Simvastatin (SIMVASTATIN) 10 Mg Tablet, 10 MG PO HS for FOR CHOLESTEROL, #30 TAB 0 Refills 08/15/18 Roflumilast (DALIRESP) 500 Mcg Tablet, 1 TAB PO DAILY for R, #90 TAB 3 Refills 08/15/18 Polyethylene Glycol 3350 (POLYETHYLENE GLYCOL 3350) 255 Gm Powder, 17 GM PO DAILY for constipation, #527 GM 08/15/18 Pantoprazole Sodium (PROTONIX) 20 Mg Tablet.dr, 40 MG PO DAILY for Sub for Omeprazole, TAB 08/15/18 Nystatin (NYSTATIN) 15 Gm Cream..g., 1 LAURA TP BID for yeast, #30 GM 08/15/18 Montelukast Sodium (SINGULAIR TABLET) 10 Mg Tablet, 10 MG PO HS for FOR ASTHMA, #30 TAB 0 Refills 08/15/18 Melatonin (MELATONIN) 3 Mg Tablet, 1 TAB PO QHS for supplement, #30 TAB 2 Refills 08/15/18 Lorazepam (LORAZEPAM) 0.5 Mg Tablet, 0.5 MG PO PRN Q8HRS PRN for ANXIETY / AGITATION, TAB 08/15/18 Levothyroxine Sodium (LEVOTHYROXINE SODIUM) 88 Mcg Tablet, 88 MCG PO DAILYAC for THYROID SUPPLEMENT, #30 TAB 0 Refills 08/15/18 Ipratropium [place] (IPRATROPIUM BROMIDE) 0.2 Mg/1 Ml Solution, 1 VIAL NEB QID for shortness of breath, #300 ML 5 Refills 08/15/18 Furosemide (FUROSEMIDE) 20 Mg Tablet, 1 TAB PO DAILY for diaretic, #90 TAB 1 Refill 08/15/18 Fluticasone Propionate (Flonase Allergy Relief) 9.9 Ml [place].susp, 2 SPRAYS NS DAILY for allergy relief, BOTTLE 08/15/18 Cholecalciferol (Vitamin D3) (VITAMIN D) 1,000 Unit Capsule, 1 CAP PO DAILY for vitamin, #30 CAP 3 Refills 08/15/18 Cetirizine Hcl (CETIRIZINE HCL) 10 Mg Tablet, 1 TAB PO DAILY for allergies, #30 TAB 5 Refills 08/15/18 Albuterol Sulfate (PROAIR HFA INHALER) 8.5 Gm Hfa.aer.ad, 1 PUFF INH PRN Q6HRS PRN for SHORTNESS OF BREATH, INHALER 0 Refills 08/15/18 Discontinued Reported Medications Famotidine (PEPCID) 20 Mg Tablet, 20 MG PO BID for acid reflux, TAB 08/15/18 KESHIA CORDERO MD Aug 19, 2018 10:14
[2018-08-19 11:00] VITALS: BP 127/46
--- NOTE | 2018-08-19 11:00 | DS ---
DATE OF DISCHARGE: 08/19/2018 HISTORY OF PRESENT ILLNESS: The patient is a 68-year-old female patient who was transferred from [facility], where she was admitted through the Emergency Room. She has history of COPD and has been treated numerous times by her business mgr. The patient came in from [facility] as they do not have any room for admission. She was admitted to [facility] with acute exacerbation of COPD and respiratory infection as well as chest pain. She had 3 sets of cardiac enzymes that ruled out myocardial infarction. However, she had an echocardiogram that showed severe mitral stenosis with a surface area of 0.7 cm2 and therefore, she was transferred to [facility], where she underwent right and left heart catheterization, which showed that she had no significant coronary artery disease. She has normal left ventricular systolic function with ejection fraction estimated at 65%. She has severe mitral valve stenosis with a mean gradient of 13.3 mmHg and calculated mitral valve area of 1.24 cm2. She has also moderate pulmonary hypertension. She was seen in consultation by the cardiothoracic surgeon and we did not recommend any open heart surgery as her baseline, carbon dioxide is 60. She is morbidly obese and has poor functional status, that makes all these things even worse. Other options available are balloon valvuloplasty or referral for transcatheter mitral valve replacement. She was seen in consultation by the wholesale agronomist as well as the business mgr. The Cardiology team are planning to facilitate outpatient referral for balloon valvuloplasty versus transcatheter mitral valve replacement at [facility]. As the patient continued to be weak and deconditioned, the decision was made to discharge her to [facility] to continue the process of rehabilitation. PHYSICAL EXAMINATION: GENERAL: When I saw her today, she was resting slightly propped up in bed, in no apparent respiratory distress, pale, but not jaundiced or cyanosed from thyromegaly. No jugular venous distention. No lower limb edema. VITAL SIGNS: Her heart rate was 70, blood pressure was 114/56, temperature was 97.8, respiratory rate was 22 and oxygen saturation was 97% on 4 liters of oxygen. HEENT: Examination of the head, eyes, ears, nose and throat showed normocephalic, atraumatic. NECK: Supple. HEART: Normal first and second heart sounds. No gallop, rub or murmur. CHEST: Showed central trachea, equally reduced expansion, reduced air entry, vesicular breath sounds with a few scattered rhonchi. ABDOMEN: Soft, nontender. NEUROLOGIC: She was alert, oriented and answered questions appropriately. All cranial nerves intact. She moved extremities without difficulty. Her intake over the last 24 hours was 500, output was 2700. LABORATORY DATA: Her most recent white cell count was 10,700, hemoglobin 11, hematocrit 35, MCV 97 and platelet count 266,000. Her serum sodium was 143, potassium 4, chloride 100, bicarbonate 38, anion gap of 5, BUN 19, creatinine 0.9, estimated GFR was 63 mL per minute, her glucose was 95 and calcium. DISCHARGE MEDICATIONS: She was discharged to [facility] to continue albuterol sulfate 1 puff every 6 hours, cetirizine 10 mg daily, cholecalciferol or vitamin D 1000 international units once a day, fluticasone propionate for Flonase 2 sprays to each nostril daily, furosemide 20 mg daily, Mucinex 600 mg twice a day, levothyroxine 88 mcg daily, lorazepam 0.5 mg every 8 hours as needed, melatonin 3 mg at bedtime and Singulair 10 mg at bedtime, nystatin cream twice a day, Protonix 40 mg once a day, polyethylene glycol 17 grams daily p.r.n., prednisone 5 mg daily, Daliresp 500 mcg once a day, Requip 0.5 mg at bedtime and simvastatin 10 mg at bedtime. FINAL DISCHARGE DIAGNOSES: 1. Chronic hypoxic hypercapnic respiratory failure. 2. Severe chronic obstructive pulmonary disease. 3. Obesity, probable obstructive sleep apnea-hypopnea syndrome and obesity hypoventilation syndrome. 4. Severe mitral stenosis. 5. Anemia that is normochromic, normocytic. 6. Hypothyroidism. 7. Kpnxs-nd-tewmsrw diastolic congestive heart failure. KESHIA CORDERO MD DR: KIRSTEN/tami JOB#: [id number] / [id number]
--- NOTE | 2018-08-19 11:40 | NUR ---
SS following up with discharge planning. Pt requesting snf unit at [facility], ; fax [phone], at discharge. PT/OT ordered. SS awaiting PT/OT evaluations at this time. Discharge orders received. SS will await PT/OT evaluations and will send referral to [facility] once received. SS also discussed other snf options with pt in the event [facility] does not accept.
--- NOTE | 2018-08-19 13:09 | NUR ---
IV DC'ed per pt request, stating it was painful. Per [facility] shift nurse Cookie RN, pt had refused having a new IV placed during the night, even though she was educated regarding the necessity of changing an IV that has been in place since 08/12/18. Pt educated regarding the need for maintaining an IV while inpatient in case of an emergent event, and pt declined stating that she is discharging today, and that even if her departure is delayed, she will probably survive one night without an IV. Dr. Rangel notified, order to leave out IV.
[2018-08-19 15:00] VITALS: BP 115/49
--- NOTE | 2018-08-19 15:53 | NUR ---
SS following up with discharge planning. PT/OT notes received and referral and discharge orders faxed to [facility]. No acceptance decision at this time. SS contacted [facility], , for update on acceptance decision. Stephanie from [facility] reported that the person who does there clinical was in a meeting but they would try to get acceptance decision today. SS awaiting acceptance decision from [facility] and will proceed accordingly.
[2018-08-19 19:00] VITALS: BP 138/56
[2018-08-19] MEDS ORDERED: ONDANSETRON ODT 4 MG TAB.RAPDIS. PO PRN (19:30)
[2018-08-19] MEDS: MONTELUKAST SODIUM 10 MG TABLET. PO SCH (21:47)
[2018-08-19] MEDS: SIMVASTATIN 10 MG TABLET PO SCH (21:48)
[2018-08-19] MEDS: rOPINIRole 0.25 MG TABLET. PO SCH (21:48)
[2018-08-19] MEDS: diphenhydrAMINE HCL 25 MG CAPSULE PO PRN (21:48)
[2018-08-19 22:20] VITALS: BP 119/60
[2018-08-20 03:10] VITALS: BP 131/61
[2018-08-20] MEDS: HYDROcodone/APAP 5/325MG 1 TAB TABLET PO PRN ×2 (03:47→09:56)
[2018-08-20 07:10] VITALS: BP 118/42
[2018-08-20] MEDS: PANTOPRAZOLE 40 MG TABLET.DR. PO SCH (07:33)
[2018-08-20] MEDS: LEVOTHYROXINE 88 MCG TABLET PO SCH (07:33)
[2018-08-20] MEDS: BUDESONIDE 0.5 MG/2 ML NEBU. NEB SCH (08:00)
[2018-08-20] MEDS: IPRATROPIUM BROMIDE 0.5 MG/2.5 ML NEBU. NEB SCH ×2 (08:00→11:40)
[2018-08-20] MEDS: NYSTATIN 100,000 UNIT/GM TOPICAL CREAM 15GM TUBE. TP SCH (09:00)
[2018-08-20] MEDS: POLYETHYLENE GLYCOL 3350 17 GM PACKET. PO SCH (09:00)
[2018-08-20] MEDS: CHOLECALCIFEROL (VITAMIN D3) 1,000 UNIT TABLET PO SCH (09:55)
[2018-08-20] MEDS: FLUTICASONE 50MCG/NASAL SPRAY 16GM BOTTLE. NS SCH (09:55)
[2018-08-20] MEDS: FUROSEMIDE 20 MG TABLET PO SCH (09:56)
[2018-08-20] MEDS: ROFLUMILAST 500 MCG TABLET. PO SCH (09:56)
[2018-08-20] MEDS: FAMOTIDINE 20 MG TABLET. PO SCH (09:57)
[2018-08-20] MEDS: CETIRIZINE HCL 10 MG TABLET. PO SCH (09:57)
[2018-08-20] MEDS: predniSONE 5 MG TABLET PO SCH (09:57)
[2018-08-20] MEDS: METOPROLOL TART IMMED RELEASE 25 MG TABLET. PO SCH (09:57)
[2018-08-20] MEDS: LORazepam 0.5 MG TABLET PO PRN (10:01)
--- NOTE | 2018-08-20 10:42 | NUR ---
SS following up with discharge planning. Pt accepted at [facility]. Dr. Rangel notified. Discharge orders were phoned and faxed to [facility] with referral. Pt will discharge today and go to [facility] at 1115. [facility] to transport pt. Pt rights and choice forms signed and in pt's chart. Pt and pt's RN notified.
--- NOTE | 2018-08-20 10:57 | PDOC ---
PULMONARY PROGRESS NOTES Subjective on 02, gets sob w any activity, has occ cough, not worse. no pain Vitals Vital Signs Date Time Temp Pulse Resp B/P (MAP) Pulse Ox O2 Delivery O2 Flow Rate FiO2 08/20/18 09:57 85 118/42 08/20/18 09:56 Nasal Cannula 4.0 08/20/18 08:00 98 08/20/18 07:10 97.4 18 97.4 ROS: No Nausea, No Chest Pain General: Alert, No acute distress HEENT: Other (nc at perrl ) Lungs: Clear Cardiovascular: S1, S2 Abdomen: Soft, Non-tender Neuro Exam: Alert Extremities: No Edema Skin: Warm Labs Laboratory Tests Test 08/19/18 04:38 Sodium Level 143 mmol/L (136-145) Potassium Level 4.0 mmol/L (3.5-5.1) Chloride Level 100 mmol/L (98-107) Carbon Dioxide Level 38 mmol/L (21-32) Anion Gap 5 (6-14) Blood Urea Nitrogen 19 mg/dL (7-20) Creatinine 0.9 mg/dL (0.6-1.0) Estimated GFR (Cockcroft-Gault) 62.6 Glucose Level 95 mg/dL (70-99) Calcium Level 9.0 mg/dL (8.5-10.1) Medications Active Scripts Medications Dose Route/Sig Max Daily Dose Days Date Category Requip (Ropinirole Hcl) 0.5 Mg Tablet 1 Tab PO QHS 08/15/18 Reported Prednisone 1 Mg Tablet 5 Mg PO DAILY 08/15/18 Reported Mucinex (Guaifenesin) 600 Mg Tablet.er 600 Mg PO BID 08/15/18 Reported Simvastatin 10 Mg Tablet 10 Mg PO HS 08/15/18 Reported Daliresp (Roflumilast) 500 Mcg Tablet 1 Tab PO DAILY 08/15/18 Reported Polyethylene Glycol 3350 255 Gm Powder 17 Gm PO DAILY 08/15/18 Reported Protonix (Pantoprazole Sodium) 20 Mg Tablet.dr 40 Mg PO DAILY 08/15/18 Reported Nystatin 15 Gm Cream..g. 1 Eliana TP BID 08/15/18 Reported Singulair Tablet (Montelukast Sodium) 10 Mg Tablet 10 Mg PO HS 08/15/18 Reported Melatonin 3 Mg Tablet 1 Tab PO QHS 08/15/18 Reported Lorazepam 0.5 Mg Tablet 0.5 Mg PO PRN Q8HRS PRN 08/15/18 Reported Levothyroxine Sodium 88 Mcg Tablet 88 Mcg PO DAILYAC 08/15/18 Reported Ipratropium [place] 0.2 Mg/1 Ml Solution 1 Vial NEB QID 08/15/18 Reported Furosemide 20 Mg Tablet 1 Tab PO DAILY 08/15/18 Reported Flonase Allergy Relief (Fluticasone Propionate) 9.9 Ml [place].susp 2 Sprays NS DAILY 08/15/18 Reported Pepcid (Famotidine) 20 Mg Tablet 20 Mg PO BID 08/15/18 Reported Vitamin D (Cholecalciferol (Vitamin D3)) 1,000 Unit Capsule 1 Cap PO DAILY 08/15/18 Reported Cetirizine Hcl 10 Mg Tablet 1 Tab PO DAILY 08/15/18 Reported Proair Hfa Inhaler (Albuterol Sulfate) 8.5 Gm Hfa.aer.ad 1 Puff INH PRN Q6HRS PRN 08/15/18 Reported Comments cxr reviewed, 1. Linear and hazy basilar atelectasis or infiltrates with little change. Impression . 1. Chronic hypoxic / hypercapnic respiratory failure. 2. Chronic obstructive pulmonary disease, suspect severe. 3. Obesity, probable obstructive sleep apnea-hypopnea syndrome and obesity hypoventilation syndrome. 4. Severe mitral stenosis. 5. Anemia. 6. Hypothyroidism. 7. History of congestive heart failure. Plan . 1. FiO2 to keep O2 saturation 92%. 2. Continue Trilogy during sleep. 3. Bronchodilator. 4. inhaled corticosteroid. 5. Continue prednisone, since she has been on prednisone for at least 1 year. 6. Continue Daliresp. 8. ABG reviewed, compensated respiratory acidosis . 9. Chest x-ray reviewed, has hx of 60 py smoking, quit a yr ago, ct chest with 8mm focus of airspace opacity identified in the right middle lobe of the lung likely a small nodular focus of atelectasis. 10. She has COPD, which I suspect it is severe, steroid and oxygen dependent. She has chronic respiratory failure. She is morbidly obese. She has deconditioning and possible obstructive sleep apnea-hypopnea syndrome and obesity hypoventilation syndrome. I suspect she would be at high risk of developing pulmonary complications in the perioperative period. ok with dc skill today DEANA DOUGLAS MD Aug 20, 2018 10:57
[2018-08-20 11:24] VITALS: BP 127/49
--- NOTE | 2018-08-20 11:32 | SNU/HH DC ---
DISCHARGE ORDERS DISCHARGE INFORMATION: CONDITION ON DISCHARGE: Stable CODE STATUS: Code Status: Full SNF: SNF STAY <30 DAYS: Yes POST DISCHARGE ORDERS: ACTIVITY ORDERS: Activity as tolerated WEIGHT BEARING STATUS: As tolerated DIET AFTER DISCHARGE: Cardiac WOUND/INCISION CARE: No wound care needed CHECKS AFTER DISCHARGE: CHECKS AFTER DISCHARGE: Check blood press - daily, Weigh Yourself Daily FOLLOW-UP: PHYSICIAN FOLLOW-UP: Cardiology to follow up regarding [facility] outpatient procedure TREATMENT/EQUIPMENT ORDERS: ADAPTIVE EQUIPMENT NEEDED: None RESPIRATORY EQUIPMENT NEEDED: Oxygen Physical Therapy For: Evalulation/Treatment Occupational Therapy For: Evaluation/Treatment DISCHARGE MEDICATIONS: Home Meds Reported Medications Ropinirole Hcl (REQUIP) 0.5 Mg Tablet, 1 TAB PO QHS for requip, #30 TAB 1 Refill 08/15/18 Prednisone (PREDNISONE) 1 Mg Tablet, 5 MG PO DAILY for prednisone, TAB 08/15/18 Guaifenesin (MUCINEX) 600 Mg Tablet.er, 600 MG PO BID for cough, TAB.SR 08/15/18 Simvastatin (SIMVASTATIN) 10 Mg Tablet, 10 MG PO HS for FOR CHOLESTEROL, #30 TAB 0 Refills 08/15/18 Roflumilast (DALIRESP) 500 Mcg Tablet, 1 TAB PO DAILY for R, #90 TAB 3 Refills 08/15/18 Polyethylene Glycol 3350 (POLYETHYLENE GLYCOL 3350) 255 Gm Powder, 17 GM PO DAILY for constipation, #527 GM 08/15/18 Pantoprazole Sodium (PROTONIX) 20 Mg Tablet.dr, 40 MG PO DAILY for Sub for Omeprazole, TAB 08/15/18 Nystatin (NYSTATIN) 15 Gm Cream..g., 1 LAURA TP BID for yeast, #30 GM 08/15/18 Montelukast Sodium (SINGULAIR TABLET) 10 Mg Tablet, 10 MG PO HS for FOR ASTHMA, #30 TAB 0 Refills 08/15/18 Melatonin (MELATONIN) 3 Mg Tablet, 1 TAB PO QHS for supplement, #30 TAB 2 Refills 08/15/18 Lorazepam (LORAZEPAM) 0.5 Mg Tablet, 0.5 MG PO PRN Q8HRS PRN for ANXIETY / AGITATION, TAB 08/15/18 Levothyroxine Sodium (LEVOTHYROXINE SODIUM) 88 Mcg Tablet, 88 MCG PO DAILYAC for THYROID SUPPLEMENT, #30 TAB 0 Refills 08/15/18 Ipratropium [place] (IPRATROPIUM BROMIDE) 0.2 Mg/1 Ml Solution, 1 VIAL NEB QID for shortness of breath, #300 ML 5 Refills 08/15/18 Furosemide (FUROSEMIDE) 20 Mg Tablet, 1 TAB PO DAILY for diaretic, #90 TAB 1 Refill 08/15/18 Fluticasone Propionate (Flonase Allergy Relief) 9.9 Ml [place].susp, 2 SPRAYS NS DAILY for allergy relief, BOTTLE 08/15/18 Cholecalciferol (Vitamin D3) (VITAMIN D) 1,000 Unit Capsule, 1 CAP PO DAILY for vitamin, #30 CAP 3 Refills 08/15/18 Cetirizine Hcl (CETIRIZINE HCL) 10 Mg Tablet, 1 TAB PO DAILY for allergies, #30 TAB 5 Refills 08/15/18 Albuterol Sulfate (PROAIR HFA INHALER) 8.5 Gm Hfa.aer.ad, 1 PUFF INH PRN Q6HRS PRN for SHORTNESS OF BREATH, INHALER 0 Refills 08/15/18 Discontinued Reported Medications Famotidine (PEPCID) 20 Mg Tablet, 20 MG PO BID for acid reflux, TAB 08/15/18 KESHIA CORDERO MD Aug 20, 2018 11:32
--- NOTE | 2018-08-20 11:47 | NUR ---
Discharge Note: EDDIE SCOTT Discharge instructions and discharge home medications reviewed with Other facility Cori Nurse and a copy given. All questions have been answered and understanding verbalized. The following instructions and handouts were given: mitral valve stenosis, copd exac Patient discharged to [facility] with wheelchair van personnel via Wheelchair
--- NOTE | 2018-08-20 12:07 | DS ---
DATE OF DISCHARGE: 08/20/2018 ADDENDUM. The patient actually was to be discharged yesterday to [facility]. Unfortunately, they were unable to take her yesterday, and therefore, the patient will be discharged to [facility] to continue the process of rehabilitation. The cardiology team will facilitate arrangement for her to be seen at [facility] for a transcatheter replacement of the mitral valve. PHYSICAL EXAMINATION: GENERAL: When I saw her today, she looked well and was clearly in no apparent respiratory distress, pale, but no jaundice, cyanosis, or thyromegaly. No jugular venous distension. No lower limb edema. VITAL SIGNS: Her heart rate was 79, blood pressure was 127/49, temperature was 98.1, respiratory rate 20 and oxygen saturation was 97% on 4 liters of oxygen. Rest of clinical exam is stable, has not really changed. LABORATORY DATA: Showed a serum sodium of 143, potassium 4, chloride 100, bicarbonate 38, anion gap of 5, BUN 19, creatinine 0.9, estimated GFR was 63 mL per minute. She will continue on all the medications that was listed on her discharge summary. KESHIA CORDERO MD DR: KIRSTEN/tami JOB#: [id number] / [id number]
--- NOTE | 2018-08-20 13:30 | RESP ---
DATE OF SERVICE: 08/18/2018 The patient's FEV1 was 0.53, which is 20% predicted. FVC 1.15, which is 33% predicted. The FEV1/FVC ratio was reduced significantly. IMPRESSION: Severe obstructive airway disease. DEANA DOUGLAS MD DR: TRINITY/tami JOB#: [id number] / [id number]
== END 2018-08-20 11:48 | DRG 286 ==
LOC: 2 NORTH 09:54
PROVIDERS: ADMIT Internal Medicine; ATTEND Internal Medicine
PROC: 4A023N8 Measurement of Cardiac Sampling and Pressure, Bilateral, Percutaneous Approach (ICD-10-PCS; principal; 2018-08-15)
PROC: B2111ZZ Fluoroscopy of Multiple Coronary Arteries using Low Osmolar Contrast (ICD-10-PCS; 2018-08-15)
PROC: B2151ZZ Fluoroscopy of Left Heart using Low Osmolar Contrast (ICD-10-PCS; 2018-08-15)
PROC: 5A09357 Assistance with Respiratory Ventilation, Less than 24 Consecutive Hours, Continuous Positive Airway Pressure (ICD-10-PCS; 2018-08-15)
PROC: 5A09357 Assistance with Respiratory Ventilation, Less than 24 Consecutive Hours, Continuous Positive Airway Pressure (ICD-10-PCS; 2018-08-16)
PROC: 5A09357 Assistance with Respiratory Ventilation, Less than 24 Consecutive Hours, Continuous Positive Airway Pressure (ICD-10-PCS; 2018-08-20)
DX: I05.0 Rheumatic mitral stenosis (principal); I50.33 Acute on chronic diastolic (congestive) heart failure; J96.21 Acute and chronic respiratory failure with hypoxia; J96.22 Acute and chronic respiratory failure with hypercapnia; E66.2 Morbid (severe) obesity with alveolar hypoventilation; J44.1 Chronic obstructive pulmonary disease with (acute) exacerbation; Z68.41 Body mass index [BMI] 40.0-44.9, adult; D64.9 Anemia, unspecified; E03.9 Hypothyroidism, unspecified; E78.5 Hyperlipidemia, unspecified; I11.0 Hypertensive heart disease with heart failure; F41.9 Anxiety disorder, unspecified; I27.20 Pulmonary hypertension, unspecified; Z79.52 Long term (current) use of systemic steroids; Z80.1 Family history of malignant neoplasm of trachea, bronchus and lung; Z82.0 Family history of epilepsy and other diseases of the nervous system; Z82.49 Family history of ischemic heart disease and other diseases of the circulatory system; Z82.5 Family history of asthma and other chronic lower respiratory diseases; Z83.3 Family history of diabetes mellitus; Z87.891 Personal history of nicotine dependence; Z90.710 Acquired absence of both cervix and uterus; Z99.81 Dependence on supplemental oxygen; Z90.722 Acquired absence of ovaries, bilateral; Z90.49 Acquired absence of other specified parts of digestive tract
CPT/HCPCS: 36415; 36600; 71045; 71250; 80048; 80053; 82805; 85007; 85025; 85027; 85610; 93460; 94010; 94640; 94760; 99152; 99153; C1769; C1773; C1892; G0269; J1644; J1940; J2250; J2405; J3010; J7512; J7626; J7644; Q0162; Q0163; Q9967

== ENCOUNTER 2018-08-29 20:11 | Inpatient (IN) | payer MEDICARE, OTHER ==
[~2018-08-29] VITALS: Ht 170.2 cm; Wt 120.7 kg
[~2018-08-29 20:11] MED LIST: ALBU2.5V8 INH; CETI10TA16 PO; CHOL100013 PO; FAMO-63 PO; FLUT9.9S NS; FURO20TA3 PO; GUAI600T47 PO; IPRA0.2S5 NEB; LEVO88TA4 PO; LORA0.5T PO; MELA3TAB2 PO; MONT10TA6 PO; NYST15CR TP; PANT20TA2 PO; POLY255P11 PO; PRED1TAB3 PO; ROFL500T7 PO; ROPI0.5T PO; SIMV10TA3 PO
[2018-08-29 21:23] LABS: BILIRUBIN,URINE NEGATIVE (NEG); CLARITY,URINE CLOUDY; COLOR,URINE YELLOW; NITRITE,URINE NEGATIVE (NEG); PROTEIN,URINE NEGATIVE (NEG-TRACE)
[2018-08-29 21:26] LABS: BASO % 0 % (0-3); EOS # 0.4 x10^3/uL (0.0-0.7); EOS % 2 % (0-3); HEMATOCRIT 34.1 % (36.0-47.0); HEMOGLOBIN 10.9 g/dL (12.0-15.5); LYMPH # 0.6 x10^3/uL (1.0-4.8); LYMPH % 4 % (24-48); MEAN CORPUSCULAR HEMOGLOBIN 31 pg (25-35); MEAN CORPUSCULAR HGB CONC 32 g/dL (31-37); MEAN CORPUSCULAR VOLUME 96 fL (79-100); MONO # 2.2 x10^3/uL (0.0-1.1); MONO % 12 % (0-9); NEUT # 15.3 x10^3uL (1.8-7.7); NEUT % 83 % (31-73); PLATELET COUNT 254 x10^3/uL (140-400); RED BLOOD COUNT 3.54 x10^6/uL (3.50-5.40); RED CELL DISTRIBUTION WIDTH 14.2 % (11.5-14.5); WHITE BLOOD COUNT 18.5 x10^3/uL (4.0-11.0)
[2018-08-29 21:34] LABS: CALCIUM 9.5 mg/dL (8.5-10.1); GFR 55.5; POTASSIUM 4.1 mmol/L (3.5-5.1)
[2018-08-29 21:37] LABS: BACTERIA,URINE MANY /HPF (0-FEW); SQUAMOUS EPITHELIAL CELL,UR MOD /LPF
[2018-08-29 21:40] LABS: ALBUMIN 3.6 g/dL (3.4-5.0); ALBUMIN/GLOBULIN RATIO 0.9 (1.0-1.7); TOTAL BILIRUBIN 0.6 mg/dL (0.2-1.0); TOTAL PROTEIN 7.6 g/dL (6.4-8.2)
[2018-08-29 21:44] LABS: PROTHROMBIN TIME PATIENT 13.6 SEC (11.7-14.0)
[2018-08-29 21:49] LABS: CREATINE KINASE 29 U/L (26-192)
[2018-08-29 21:59] LABS: D-DIMER 1.09 ug/mlFEU (0.00-0.50)
[2018-08-29] MEDS ORDERED: IV NORMAL SALINE 1000ML BAG 1,000 ML IV ONE ×2 (22:00→22:30)
[2018-08-29] MEDS ORDERED: IPRATRPIUM/ALBUTEROL 0.5/2.5MG 3 ML NEBU. NEB ONE (22:00)
[2018-08-29] MEDS ORDERED: DEXAMETHASONE SOD PHOS 20 MG/5 ML VIAL. IV ONE (22:15)
--- NOTE | 2018-08-29 22:17 | PHYS DOC ---
Past Medical History Past Medical History: COPD, High Cholesterol, Hypothyroid Additional Past Medical Histor: MITRAL VALVE REGURGITATION, RLS Past Surgical History: Cholecystectomy, Hysterectomy, Other Additional Past Surgical Histo: D&C Alcohol Use: None Drug Use: None Adult General Chief Complaint Chief Complaint: CHEST PAIN HPI HPI Patient is a 68 year old female who presents to the ED with chest pain and shortness of breath. Noted earlier today and she did not eat any breakfast. Later she nap and woke up with shortness of breath and chest pain. She also stated that her back was hurting. She currently says that her pains are minimal. Her chest pain as of 1/10 achy pain that does not radiate. Some 4 L of oxygen at baseline. She was recently in the hospital and found that she has a leaky heart valve, but was discharged to rehabilitation to gain more strength for the operation. She received 2 aspirin in the ambulance on the way to the ED. Review of Systems Review of Systems Constitutional: Denies fever or chills [] Eyes: Denies change in visual acuity, redness, or eye pain [] HENT: Denies nasal congestion or sore throat [] Respiratory: Denies cough or shortness of breath [] Cardiovascular: Admits chest pain. Denies palpitations. GI: Admits nausea. Denies abdominal pain, vomiting, bloody stools or diarrhea [] : Denies dysuria or hematuria [] Musculoskeletal: Denies back pain or joint pain [] Integument: Denies rash or skin lesions [] Neurologic: Denies headache, focal weakness or sensory changes [] Complete systems were reviewed and found to be within normal limits, except as documented in this note. Current Medications Current Medications Current Medications Medications (Trade) Dose Ordered Sig/Kaiden Start Time Stop Time Status Last Admin Dose Admin Albuterol/ Ipratropium (Duoneb) 3 ml 1X ONCE 08/29/18 22:00 08/29/18 22:01 DC 08/29/18 22:07 3 ML Dexamethasone Sodium Phosphate (Decadron) 10 mg 1X ONCE 08/29/18 22:15 08/29/18 22:16 DC 08/29/18 22:11 10 MG Info (CONTRAST GIVEN -- Rx MONITORING) 1 each PRN DAILY PRN 08/29/18 22:45 08/31/18 22:44 Ondansetron HCl (Zofran) 4 mg PRN Q8HRS PRN 08/29/18 22:45 08/30/18 22:44 Sodium Chloride 1,000 ml @ 125 mls/hr 1X ONCE 08/29/18 22:30 08/30/18 06:29 08/30/18 01:40 125 MLS/HR Allergies Allergies Allergies Coded Allergies Type Severity Reaction Last Updated Verified No Known Drug Allergies 08/15/18 No Physical Exam Physical Exam Constitutional: Well developed, well nourished, no acute distress, non-toxic appearance. [] HENT: Normocephalic, atraumatic, nose normal. [] Eyes: EOMI, conjunctiva normal, no discharge. [] Neck: Normal range of motion, no tenderness, supple, no stridor. [] Cardiovascular: Tachycardic by auscultation. Regular rhythm Lungs & Thorax: Bilateral breath sounds clear to auscultation but diminished throughout[] Abdomen: Bowel sounds normal, soft, no tenderness, no masses, no pulsatile masses. [] Skin: Warm, dry, no erythema, no rash. [] Back: No tenderness, no CVA tenderness. [] Extremities: No tenderness, no cyanosis, no clubbing, no edema. [] Neurologic: Alert, normal motor function, normal sensory function, no focal deficits noted. [] Psychologic: Affect normal, judgement normal, mood normal. [] Current Patient Data Vital Signs Vital Signs Date Time Temp Pulse Resp B/P (MAP) Pulse Ox O2 Delivery O2 Flow Rate FiO2 08/29/18 22:19 93 113/62 (79) 96 08/29/18 20:22 99.5 26 Nasal Cannula 4.0 99.5 Lab Values Laboratory Tests Test 08/29/18 21:15 08/29/18 21:18 08/29/18 21:55 Urine Collection Type Unknown Urine Color Yellow Urine Clarity Cloudy Urine pH 8.0 Urine Specific [place] 1.015 Urine Protein Negative mg/dL (NEG-TRACE) Urine Glucose (UA) Negative mg/dL (NEG) Urine Ketones (Stick) Negative mg/dL (NEG) Urine Blood Trace (NEG) Urine Nitrite Negative (NEG) Urine Bilirubin Negative (NEG) Urine Urobilinogen Dipstick 1.0 mg/dL (0.2 mg/dL) Urine Leukocyte Esterase Moderate (NEG) Urine RBC 1-2 /HPF (0-2) Urine WBC 5-10 /HPF (0-4) Urine Squamous Epithelial Cells Mod /LPF Urine Bacteria Many /HPF (0-FEW) Urine Mucus Mod /LPF White Blood Count 18.5 x10^3/uL (4.0-11.0) H Red Blood Count 3.54 x10^6/uL (3.50-5.40) Hemoglobin 10.9 g/dL (12.0-15.5) L Hematocrit 34.1 % (36.0-47.0) L Mean Corpuscular Volume 96 fL (79-100) Mean Corpuscular Hemoglobin 31 pg (25-35) Mean Corpuscular Hemoglobin Concent 32 g/dL (31-37) Red Cell Distribution Width 14.2 % (11.5-14.5) Platelet Count 254 x10^3/uL (140-400) Neutrophils (%) (Auto) 83 % (31-73) H Lymphocytes (%) (Auto) 4 % (24-48) L Monocytes (%) (Auto) 12 % (0-9) H Eosinophils (%) (Auto) 2 % (0-3) Basophils (%) (Auto) 0 % (0-3) Neutrophils # (Auto) 15.3 x10^3uL (1.8-7.7) H Lymphocytes # (Auto) 0.6 x10^3/uL (1.0-4.8) L Monocytes # (Auto) 2.2 x10^3/uL (0.0-1.1) H Eosinophils # (Auto) 0.4 x10^3/uL (0.0-0.7) Basophils # (Auto) 0.0 x10^3/uL (0.0-0.2) Segmented Neutrophils % 85 % (35-66) H Lymphocytes % 4 % (24-48) L Monocytes % 10 % (0-10) Eosinophils % 1 % (0-5) Platelet Estimate Adequate (ADEQUATE) Polychromasia Slight Stomatocytes Occ Prothrombin Time 13.6 SEC (11.7-14.0) Prothrombin Time INR 1.1 (0.8-1.1) D-Dimer (Fara) 1.09 ug/mlFEU (0.00-0.50) H Sodium Level 141 mmol/L (136-145) Potassium Level 4.1 mmol/L (3.5-5.1) Chloride Level 96 mmol/L (98-107) L Carbon Dioxide Level 37 mmol/L (21-32) H Anion Gap 8 (6-14) Blood Urea Nitrogen 20 mg/dL (7-20) Creatinine 1.0 mg/dL (0.6-1.0) Estimated GFR (Cockcroft-Gault) 55.5 BUN/Creatinine Ratio 20 (6-20) Glucose Level 103 mg/dL (70-99) H Calcium Level 9.5 mg/dL (8.5-10.1) Magnesium Level 2.0 mg/dL (1.8-2.4) Total Bilirubin 0.6 mg/dL (0.2-1.0) Aspartate Amino Transferase (AST) 15 U/L (15-37) Alanine Aminotransferase (ALT) 18 U/L (14-59) Alkaline Phosphatase 69 U/L (46-116) Creatine Kinase 29 U/L (26-192) Creatine Kinase MB (Mass) < 0.5 ng/mL (0.0-3.6) Creatine Kinase MB Relative Index % (0-4) Troponin I Quantitative < 0.017 ng/mL (0.000-0.055) LB-Gbq-O-Type Natriuretic Peptide 1097 pg/mL (0-124) H Total Protein 7.6 g/dL (6.4-8.2) Albumin 3.6 g/dL (3.4-5.0) Albumin/Globulin Ratio 0.9 (1.0-1.7) L Lipase 64 U/L (73-393) L Lactic Acid Level 1.8 mmol/L (0.4-2.0) Laboratory Tests 08/29/18 21:18 Laboratory Tests 08/29/18 21:18 EKG EKG @2026 NSR at 96bpm, NO ST elevation Radiology/Procedures Radiology/Procedures [] Course & Med Decision Making Course & Med Decision Making Pertinent Labs and Imaging studies reviewed. (See chart for details) Patient is a 68-year-old female presents to the ED with chest pain and shortness of breath since this morning. BNP 1097. Elevated white count, tachycardic, tachypnea. Patient meets SIRS criteria. D-dimer positive. CTA chest pending. Dragon Disclaimer Dragon Disclaimer This electronic medical record was generated, in whole or in part, using a voice recognition dictation system. Departure Departure Referrals: LUIS UGALDE MD (PCP) HANDY ROSARIO DO Aug 29, 2018 22:17
[2018-08-29] MEDS ORDERED: ONDANSETRON PF 4 MG/2 ML VIAL. IV PRN (22:45)
[2018-08-29] MEDS ORDERED: CONTRAST GIVEN. MC PRN (22:45)
[2018-08-29 22:51] LABS: % EOS 1 % (0-5); % LYMPHS 4 % (24-48); % MONOS 10 % (0-10); % SEGS 85 % (35-66)
[2018-08-29 22:53] LABS: PLT ESTIMATE ADEQUATE (ADEQUATE); POLYCHROMASIA SLIGHT; STOMATOCYTES OCC
[2018-08-29] MEDS ORDERED: IOHEXOL 350 MG/ML 100 ML VIAL. IV ONE (23:00)
[2018-08-29 23:40] VITALS: BP 147/58
--- NOTE | 2018-08-29 23:40 | NUR ---
Patient admitted to room 209. Patient alert and oriented x 4. Patient oriented to room, call light, bed and plan of care. Call light in reach. Family at bedside. Valuables checked and verified. HIPPA code given to Patient's daughter Ulises. See admission assessment/documentation.
--- NOTE | 2018-08-29 23:43 | RAD ---
CTA scan of the Chest with Contrast (Pulmonary Embolism protocol) 08/29/2018 Clinical History: Chest pain. Elevated d-dimer. Technique: After the intravenous administration of 75 cc of Omnipaque 350, contiguous, 0.625 mm axial sections were obtained through the chest. 2 mm axial and 3D MIP coronal and sagittal reconstructed images were obtained. One or more of the following individualized dose reduction techniques were utilized for this study: 1. Automated exposure control. 2. Adjustment of the mA and/or kV according to patient size. 3. Use of iterative reconstruction technique. Findings: No filling defect is seen within the major branches of either pulmonary artery. There is no CT evidence of pulmonary embolism. The heart is mildly enlarged. Atherosclerotic calcification thoracic aorta and its branches is seen. Enlarged right hilar and mediastinal lymph nodes are seen which measure 1 cm to 2.4 cm in size. Mild bullous emphysematous changes are seen both lungs. Minimal dependent subsegmental atelectasis is seen involving both lungs. No area of consolidation, pleural effusion or pneumothorax is seen. Impression: There is no CT evidence of pulmonary embolism. Electronically signed by: Charlie Quinones MD (08/29/2018 11:40 PM) [id number]
[2018-08-30] MEDS ORDERED: POTA20TA82 PO (00:40)
[2018-08-30] MEDS ORDERED: FURO-68 PO (00:44)
[2018-08-30] MEDS ORDERED: ONDA4TAB7 PO (00:44)
[2018-08-30] MEDS ORDERED: ZOLP5TAB PO (00:45)
[2018-08-30] MEDS ORDERED: HYDR-3164 PO (00:46)
[2018-08-30] MEDS ORDERED: FLUT1BLS3 IH (00:48)
[2018-08-30] MEDS ORDERED: HYDROcodone/APAP 5/325MG 1 TAB TABLET PO ONE (01:15)
[2018-08-30 03:10] VITALS: BP 122/56
[2018-08-30] MEDS ORDERED: ALBUTEROL SULFATE 2.5 MG/3 ML NEBU. INH PRN (07:45)
[2018-08-30 08:00] VITALS: BP 146/68
[2018-08-30] MEDS ORDERED: ONDANSETRON ODT 4 MG TAB.RAPDIS. PO PRN (08:30)
[2018-08-30] MEDS: NYSTATIN 100,000 UNIT/GM TOPICAL CREAM 15GM TUBE. TP SCH ×2 (09:00→20:46)
[2018-08-30] MEDS ORDERED: NON FORMULARY ITEM (Fluticasone/Umeclidin/Vilanter (Trelegy Ellipta 100-62.5-25) 1 EACH) IH SCH (09:00)
[2018-08-30] MEDS ORDERED: NYSTATIN 100,000 UNIT/GM TOPICAL CREAM 15GM TUBE. TP SCH (09:00)
[2018-08-30] MEDS ORDERED: FLUTICASONE 50MCG/NASAL SPRAY 16GM BOTTLE. NS SCH (09:00)
[2018-08-30] MEDS ORDERED: IPRATROPIUM BROMIDE 0.5 MG/2.5 ML NEBU. NEB SCH (09:00)
[2018-08-30] MEDS: cefTRIAXone IV Push 1 GM VIAL. IVP SCH (09:09)
[2018-08-30] MEDS: FUROSEMIDE 40 MG TABLET. PO SCH (09:09)
[2018-08-30] MEDS: POLYETHYLENE GLYCOL 3350 17 GM PACKET. PO SCH (09:09)
[2018-08-30] MEDS: POTASSIUM CHLORIDE 20 MEQ TABLET.ER. PO SCH (09:10)
[2018-08-30] MEDS: CETIRIZINE HCL 10 MG TABLET. PO SCH (09:10)
[2018-08-30] MEDS: ROFLUMILAST 500 MCG TABLET. PO SCH (09:10)
[2018-08-30] MEDS: CHOLECALCIFEROL (VITAMIN D3) 1,000 UNIT TABLET PO SCH (09:10)
[2018-08-30] MEDS: predniSONE 5 MG TABLET PO SCH (09:10)
[2018-08-30] MEDS: FLUTICASONE 50MCG/NASAL SPRAY 16GM BOTTLE. NS SCH (09:10)
[2018-08-30] MEDS: LORazepam 0.5 MG TABLET PO PRN ×2 (09:16→22:08)
[2018-08-30] MEDS: LEVOTHYROXINE 88 MCG TABLET PO SCH (09:16)
--- NOTE | 2018-08-30 09:22 | EKG ---
[facility] [address] [place] [address] Test Date: 2018-08-29 Test Time: 20:26:37 Pat Name: EDDIE SCOTT Department: Room: 209 1 Gender: F Deputy Clerk: : 1950 Requested By: HANDY ROSARIO Order Number: [id number] Reading MD: Efrain Yang MD Measurements Intervals [place] Rate: 96 P: 58 NC: 146 QRS: 11 QRSD: 72 T: 36 QT: 336 QTc: 431 Interpretive Statements SINUS RHYTHM Electronically Signed On 09-01-2018 14:27:19 CDT by Efrain Yang MD
--- NOTE | 2018-08-30 11:10 | PDOC2 ---
CONSULT Date of Consult Date of Consult DATE: 08/30/18 TIME: 11:10 Reason for Consult Reason for Consult: Chest pain Referring Physician Referring Physician: Dr. Rangel Identification/Chief Complaint Chief Complaint Chest pain Source Source: Chart review, Patient History of Present Illness Reason for Visit: 68-year-old female who was recently diagnosed with severe mitral stenosis on right and left heart catheterization and undergoing rehabilitation at [facility] was transferred to [facility] after she started complaining of retrosternal chest pain that she described as burning sensation not related to exertion. She has baseline dyspnea and denied any worsening. She also denied any palpitations or syncope. Past Medical History Cardiovascular: CHF Pulmonary: COPD Current Medications Current Medications Current Medications Sodium Chloride 1,000 ml @ 1,000 mls/hr 1X ONCE IV Last administered on at 21:45; Start 08/29/18 at 22:00; Stop 08/29/18 at 22:59; Status DC Albuterol/ Ipratropium (Duoneb) 3 ml 1X ONCE NEB Last administered on at 22:07; Start 08/29/18 at 22:00; Stop 08/29/18 at 22:01; Status DC Dexamethasone Sodium Phosphate (Decadron) 10 mg 1X ONCE IV Last administered on 08/29/18at 22:11; Start 08/29/18 at 22:15; Stop 08/29/18 at 22:16; Status DC Sodium Chloride 1,000 ml @ 125 mls/hr 1X ONCE IV Last administered on at 01:40; Start 08/29/18 at 22:30; Stop 08/30/18 at 06:29; Status DC Iohexol (Omnipaque 350 Mg/ml) 100 ml 1X ONCE IV Last administered on at 23:28; Start 08/29/18 at 23:00; Stop 08/29/18 at 23:01; Status DC Info (CONTRAST GIVEN -- Rx MONITORING) 1 each PRN DAILY PRN MC SEE COMMENTS; Start 08/29/18 at 22:45; Stop 08/31/18 at 22:44 Ondansetron HCl (Zofran) 4 mg PRN Q8HRS PRN IV NAUSEA/VOMITING 1ST CHOICE; Start 08/29/18 at 22:45; Stop 08/30/18 at 22:44 Acetaminophen/ Hydrocodone Bitart (Lortab 5/325) 1 tab 1X ONCE PO Last administered on 08/30/18at 01:39; Start 08/30/18 at 01:15; Stop 08/30/18 at 01:16 ; Status DC Albuterol Sulfate (Ventolin Neb Soln) 8.5 mg PRN Q6HRS PRN INH SHORTNESS OF BREATH; Start 08/30/18 at 07:45 Cetirizine HCl (ZyrTEC) 10 mg DAILY PO Last administered on 08/30/18at 09:10; Start 08/30/18 at 09:00 Furosemide (Lasix) 20 mg DAILY PO ; Start 09/01/18 at 09:00 Furosemide (Lasix) 40 mg DAILY PO Last administered on 08/30/18 09:09; Start 08/30/18 at 09:00; Stop 08/31/18 at 09:01 Guaifenesin (Mucinex) 600 mg BID PO Last administered on 08/30/18at 09:09; Start 08/30/18 at 09:00 Acetaminophen/ Hydrocodone Bitart (Lortab 5/325) 1 tab PRN Q4HRS PRN PO MODERATE PAIN; Start 08/30/18 at 07:45 Ipratropium Artesian (Atrovent) 0.2 mg RTQID NEB ; Start 08/30/18 at 09:00 Levothyroxine Sodium (Synthroid) 88 mcg DAILYAC PO Last administered on at 09:16; Start 08/30/18 at 10:30 Lorazepam (Ativan) 0.5 mg PRN Q8HRS PRN PO ANXIETY / AGITATION Last administered on 08/30/18 09:16; Start 08/30/18 at 07:45 Prednisone (Prednisone) 5 mg DAILY PO Last administered on 08/30/18 09:10; Start 08/30/18 at 09:00 Simvastatin (Zocor) 10 mg HS PO ; Start 08/30/18 at 21:00 Zolpidem Tartrate (Ambien) 5 mg PRN QHS PRN PO INSOMNIA; Start 08/30/18 at 07: 45 Vitamin D (Vitamin D3) 1,000 unit DAILY PO Last administered on 08/30/18at 09:10 ; Start 08/30/18 at 09:00 Fluticasone Propionate (Flonase) 2 spray DAILY NS ; Start 08/30/18 at 09:00; Status Cancel Non-Formulary Medication (Fluticasone/ Umeclidin/ Vilanter (Trelegy Ellipta 100- 62.5-25)) 1 each DAILY IH ; Start 08/30/18 at 09:00; Status UNV Non-Formulary Medication (Melatonin ) 1 tab QHS PO ; Start 08/30/18 at 21:00; Stop 08/30/18 at 21:00; Status DC Montelukast Sodium (Singulair) 10 mg QHS PO ; Start 08/30/18 at 21:00 Nystatin (Mycostatin) 1 eliana BID TP ; Start 08/30/18 at 09:00; Status Cancel Ondansetron HCl (Zofran Odt) 4 mg PRN Q6HRS PRN PO NAUSEA/VOMITING; Start 08/30 at 08:30 Pantoprazole Sodium (Protonix) 40 mg DAILYAC PO ; Start 08/30/18 at 11:30 Polyethylene Glycol (miraLAX PACKET) 17 gm DAILY PO Last administered on at 09:09; Start 08/30/18 at 09:00 Potassium Chloride (Klor-Con) 20 meq DAILYWBKFT PO Last administered on at 09:10; Start 08/30/18 at 08:30 Roflumilast (Daliresp) 500 mcg DAILY PO Last administered on 08/30/18at 09:10; Start 08/30/18 at 09:00 Ropinirole HCl (Requip) 0.5 mg QHS PO ; Start 08/30/18 at 21:00 Ceftriaxone Sodium (Rocephin) 1 gm Q24H IVP Last administered on 08/30/18at 09: 09; Start 08/30/18 at 09:00 Fluticasone Propionate (Flonase) 2 spray DAILY NS Last administered on at 09:10; Start 08/30/18 at 09:00 Nystatin (Mycostatin) 1 eliana BID TP ; Start 08/30/18 at 09:00 Active Scripts Active Reported Trelegy Ellipta 100-62.5-25 (Fluticasone/Umeclidin/Vilanter) 1 Each Blst.w.dev 1 Each IH DAILY Jenner 5-325 Tablet (Acetaminophen/Hydrocodone Bitart) 1 Each Tablet 1 Tab PO PRN Q4HRS PRN Ambien (Zolpidem Tartrate) 5 Mg Tablet 5 Mg PO PRN QHS PRN Zofran (Ondansetron Hcl) 4 Mg Tablet 1 Tab PO Q6HRS PRN Lasix (Furosemide) 40 Mg Tablet 1 Tab PO DAILY Potassium Chloride 20 Meq Tablet.er 20 Meq PO DAILY Daily for 4 days starting 08-28-2018 Requip (Ropinirole Hcl) 0.5 Mg Tablet 1 Tab PO QHS Prednisone 1 Mg Tablet 5 Mg PO DAILY Mucinex (Guaifenesin) 600 Mg Tablet.er 600 Mg PO BID Simvastatin 10 Mg Tablet 10 Mg PO HS Daliresp (Roflumilast) 500 Mcg Tablet 1 Tab PO DAILY Polyethylene Glycol 3350 255 Gm Powder 17 Gm PO DAILY Protonix (Pantoprazole Sodium) 20 Mg Tablet.dr 40 Mg PO DAILY Nystatin 15 Gm Cream..g. 1 Eliana TP BID Singulair Tablet (Montelukast Sodium) 10 Mg Tablet 10 Mg PO HS Melatonin 3 Mg Tablet 1 Tab PO QHS Lorazepam 0.5 Mg Tablet 0.5 Mg PO PRN Q8HRS PRN Levothyroxine Sodium 88 Mcg Tablet 88 Mcg PO DAILYAC Ipratropium Artesian 0.2 Mg/1 Ml Solution 1 Vial NEB QID Furosemide 20 Mg Tablet 1 Tab PO DAILY Daily starting 09-01-2018 Flonase Allergy Relief (Fluticasone Propionate) 9.9 Ml [place].susp 2 Sprays NS DAILY Vitamin D (Cholecalciferol (Vitamin D3)) 1,000 Unit Capsule 1 Cap PO DAILY Cetirizine Hcl 10 Mg Tablet 1 Tab PO DAILY Proair Hfa Inhaler (Albuterol Sulfate) 8.5 Gm Hfa.aer.ad 1 Puff INH PRN Q6HRS PRN Allergies Allergies: Coded Allergies: No Known Drug Allergies (Unverified , 08/15/18) ROS PSYCHOLOGICAL ROS: No: Hallucinations Eyes: No Loss of vision HEENT: No: Epistaxis Respiratory: YES: Shortness of breath; No: Hemoptysis Cardiovascular: yes Chest Pain Gastrointestinal: No Vomiting, No Diarrhea Neurological: No Seizures Skin: No Rash Physical Exam General: Alert, mild distress HEENT: Atraumatic Lungs: Other (scattered crepitations bilaterally) Heart: Regular rate Abdomen: Soft Extremities: Other (trace edema) Neuro: Normal speech Psych/Mental Status: Mood NL Vitals VITALS Vital Signs Date Time Temp Pulse Resp B/P (MAP) Pulse Ox O2 Delivery O2 Flow Rate FiO2 08/30/18 08:00 96.6 82 24 146/68 (94) 99 Nasal Cannula 5.0 96.6 Labs Labs Laboratory Tests Test 08/29/18 21:15 08/29/18 21:18 08/29/18 21:55 08/30/18 01:50 Urine Collection Type Unknown Urine Color Yellow Urine Clarity Cloudy Urine pH 8.0 Urine Specific Pep 1.015 Urine Protein Negative mg/dL (NEG-TRACE) Urine Glucose (UA) Negative mg/dL (NEG) Urine Ketones (Stick) Negative mg/dL (NEG) Urine Blood Trace (NEG) Urine Nitrite Negative (NEG) Urine Bilirubin Negative (NEG) Urine Urobilinogen Dipstick 1.0 mg/dL (0.2 mg/dL) Urine Leukocyte Esterase Moderate (NEG) Urine RBC 1-2 /HPF (0-2) Urine WBC 5-10 /HPF (0-4) Urine Squamous Epithelial Cells Mod /LPF Urine Bacteria Many /HPF (0-FEW) Urine Mucus Mod /LPF White Blood Count 18.5 x10^3/uL (4.0-11.0) Red Blood Count 3.54 x10^6/uL (3.50-5.40) Hemoglobin 10.9 g/dL (12.0-15.5) Hematocrit 34.1 % (36.0-47.0) Mean Corpuscular Volume 96 fL (79-100) Mean Corpuscular Hemoglobin 31 pg (25-35) Mean Corpuscular Hemoglobin Concent 32 g/dL (31-37) Red Cell Distribution Width 14.2 % (11.5-14.5) Platelet Count 254 x10^3/uL (140-400) Neutrophils (%) (Auto) 83 % (31-73) Lymphocytes (%) (Auto) 4 % (24-48) Monocytes (%) (Auto) 12 % (0-9) Eosinophils (%) (Auto) 2 % (0-3) Basophils (%) (Auto) 0 % (0-3) Neutrophils # (Auto) 15.3 x10^3uL (1.8-7.7) Lymphocytes # (Auto) 0.6 x10^3/uL (1.0-4.8) Monocytes # (Auto) 2.2 x10^3/uL (0.0-1.1) Eosinophils # (Auto) 0.4 x10^3/uL (0.0-0.7) Basophils # (Auto) 0.0 x10^3/uL (0.0-0.2) Segmented Neutrophils % 85 % (35-66) Lymphocytes % 4 % (24-48) Monocytes % 10 % (0-10) Eosinophils % 1 % (0-5) Platelet Estimate Adequate (ADEQUATE) Polychromasia Slight Stomatocytes Occ Prothrombin Time 13.6 SEC (11.7-14.0) Prothromb Time International Ratio 1.1 (0.8-1.1) D-Dimer (Fara) 1.09 ug/mlFEU (0.00-0.50) Sodium Level 141 mmol/L (136-145) Potassium Level 4.1 mmol/L (3.5-5.1) Chloride Level 96 mmol/L (98-107) Carbon Dioxide Level 37 mmol/L (21-32) Anion Gap 8 (6-14) Blood Urea Nitrogen 20 mg/dL (7-20) Creatinine 1.0 mg/dL (0.6-1.0) Estimated GFR (Cockcroft-Gault) 55.5 BUN/Creatinine Ratio 20 (6-20) Glucose Level 103 mg/dL (70-99) Calcium Level 9.5 mg/dL (8.5-10.1) Magnesium Level 2.0 mg/dL (1.8-2.4) Total Bilirubin 0.6 mg/dL (0.2-1.0) Aspartate Amino Transf (AST/SGOT) 15 U/L (15-37) Alanine Aminotransferase (ALT/SGPT) 18 U/L (14-59) Alkaline Phosphatase 69 U/L (46-116) Creatine Kinase 29 U/L (26-192) Creatine Kinase MB (Mass) < 0.5 ng/mL (0.0-3.6) Creatine Kinase MB Relative Index % (0-4) Troponin I Quantitative < 0.017 ng/mL (0.000-0.055) < 0.017 ng/mL (0.000-0.055) DY-Jff-A-Type Natriuretic Peptide 1097 pg/mL (0-124) Total Protein 7.6 g/dL (6.4-8.2) Albumin 3.6 g/dL (3.4-5.0) Albumin/Globulin Ratio 0.9 (1.0-1.7) Lipase 64 U/L (73-393) Lactic Acid Level 1.8 mmol/L (0.4-2.0) Test 08/30/18 05:10 Troponin I Quantitative < 0.017 ng/mL (0.000-0.055) Laboratory Tests Test 08/29/18 21:15 08/29/18 21:18 08/29/18 21:55 08/30/18 01:50 Urine Collection Type Unknown Urine Color Yellow Urine Clarity Cloudy Urine pH 8.0 Urine Specific Pep 1.015 Urine Protein Negative mg/dL (NEG-TRACE) Urine Glucose (UA) Negative mg/dL (NEG) Urine Ketones (Stick) Negative mg/dL (NEG) Urine Blood Trace (NEG) Urine Nitrite Negative (NEG) Urine Bilirubin Negative (NEG) Urine Urobilinogen Dipstick 1.0 mg/dL (0.2 mg/dL) Urine Leukocyte Esterase Moderate (NEG) Urine RBC 1-2 /HPF (0-2) Urine WBC 5-10 /HPF (0-4) Urine Squamous Epithelial Cells Mod /LPF Urine Bacteria Many /HPF (0-FEW) Urine Mucus Mod /LPF White Blood Count 18.5 x10^3/uL (4.0-11.0) Red Blood Count 3.54 x10^6/uL (3.50-5.40) Hemoglobin 10.9 g/dL (12.0-15.5) Hematocrit 34.1 % (36.0-47.0) Mean Corpuscular Volume 96 fL (79-100) Mean Corpuscular Hemoglobin 31 pg (25-35) Mean Corpuscular Hemoglobin Concent 32 g/dL (31-37) Red Cell Distribution Width 14.2 % (11.5-14.5) Platelet Count 254 x10^3/uL (140-400) Neutrophils (%) (Auto) 83 % (31-73) Lymphocytes (%) (Auto) 4 % (24-48) Monocytes (%) (Auto) 12 % (0-9) Eosinophils (%) (Auto) 2 % (0-3) Basophils (%) (Auto) 0 % (0-3) Neutrophils # (Auto) 15.3 x10^3uL (1.8-7.7) Lymphocytes # (Auto) 0.6 x10^3/uL (1.0-4.8) Monocytes # (Auto) 2.2 x10^3/uL (0.0-1.1) Eosinophils # (Auto) 0.4 x10^3/uL (0.0-0.7) Basophils # (Auto) 0.0 x10^3/uL (0.0-0.2) Segmented Neutrophils % 85 % (35-66) Lymphocytes % 4 % (24-48) Monocytes % 10 % (0-10) Eosinophils % 1 % (0-5) Platelet Estimate Adequate (ADEQUATE) Polychromasia Slight Stomatocytes Occ Prothrombin Time 13.6 SEC (11.7-14.0) Prothromb Time International Ratio 1.1 (0.8-1.1) D-Dimer (Fara) 1.09 ug/mlFEU (0.00-0.50) Sodium Level 141 mmol/L (136-145) Potassium Level 4.1 mmol/L (3.5-5.1) Chloride Level 96 mmol/L (98-107) Carbon Dioxide Level 37 mmol/L (21-32) Anion Gap 8 (6-14) Blood Urea Nitrogen 20 mg/dL (7-20) Creatinine 1.0 mg/dL (0.6-1.0) Estimated GFR (Cockcroft-Gault) 55.5 BUN/Creatinine Ratio 20 (6-20) Glucose Level 103 mg/dL (70-99) Calcium Level 9.5 mg/dL (8.5-10.1) Magnesium Level 2.0 mg/dL (1.8-2.4) Total Bilirubin 0.6 mg/dL (0.2-1.0) Aspartate Amino Transf (AST/SGOT) 15 U/L (15-37) Alanine Aminotransferase (ALT/SGPT) 18 U/L (14-59) Alkaline Phosphatase 69 U/L (46-116) Creatine Kinase 29 U/L (26-192) Creatine Kinase MB (Mass) < 0.5 ng/mL (0.0-3.6) Creatine Kinase MB Relative Index % (0-4) Troponin I Quantitative < 0.017 ng/mL (0.000-0.055) < 0.017 ng/mL (0.000-0.055) BZ-Zmj-X-Type Natriuretic Peptide 1097 pg/mL (0-124) Total Protein 7.6 g/dL (6.4-8.2) Albumin 3.6 g/dL (3.4-5.0) Albumin/Globulin Ratio 0.9 (1.0-1.7) Lipase 64 U/L (73-393) Lactic Acid Level 1.8 mmol/L (0.4-2.0) Test 08/30/18 05:10 Troponin I Quantitative < 0.017 ng/mL (0.000-0.055) Assessment/Plan Assessment/Plan 1. Chest pain with atypical features and most probably GI etiology. Myocardial infarction has been ruled out. Recent right and left heart catheterization did not show any significant coronary artery disease, LVEF 65% and severe mitral stenosis. No further cardiac workup is indicated at this time. 2. Chronic diastolic heart failure: Clinically well compensated 3. Severe mitral stenosis: Consideration for outpatient referral to [facility] for possible balloon valvuloplasty 4. COPD: Treat per pulmonary team 5. Hypertension: Controlled 6. Hyperlipidemia: Continue statin therapy Thank you for your consultation TERI SNELL MD Aug 30, 2018 11:10
--- NOTE | 2018-08-30 11:19 | HP ---
ADMIT DATE: 08/30/2018 HISTORY OF PRESENT ILLNESS: The patient is a 68-year-old female patient, a resident at [facility] who apparently started complaining of chest pain that is retrosternal and the nursing staff actually called me and the plan was for her to go to [facility]. The pain started at rest, associated with shortness of breath. She also stated that her back was hurting. Her pain by the time she arrived to the Emergency Room, was only 1/10. She denied any nausea or vomiting. Denied any diaphoresis, denied any radiation of pain to the left shoulder, left arm or left side of the neck or jaw. The pain lasted about 15 minutes according to her. She was evaluated in the Emergency Room and her first set of cardiac enzyme showed troponin to be less than 0.017. Her lactic acid is only 1.8; although, her white cell count was high at 18,500 and she was admitted to do 2 more sets of cardiac enzyme, to consult the cardiology and to rule out myocardial infarction. While in the Emergency Room, her D-dimer was found to be elevated at 1.09 and therefore, she underwent CT angio of the chest, which basically showed that it was negative for pulmonary embolism. The patient was admitted and we will consult the cobbler sole as well as the cook fishing vessel. PAST MEDICAL HISTORY: Significant for chronic obstructive pulmonary disease, congestive heart failure, hyperlipidemia, morbid obesity, obstructive sleep apnea as well as severe mitral stenosis. PAST SURGICAL HISTORY: Significant for total abdominal hysterectomy, bilateral salpingo-oophorectomy, ectopic . She also has cholecystectomy. FAMILY HISTORY: Positive for diabetes, hypertension, multiple sclerosis, and emphysema. SOCIAL HISTORY: She is . Quit smoking and drinking about a year ago. 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 ALLERGIES: She has no known drug allergies. MEDICATIONS: She is currently on the following medications: She is on cetirizine 10 mg once a day, ipratropium bromide 0.2 mg in 1 mL by nebulizer 4 times a day, albuterol sulfate 1 puff every 6 hours, simvastatin 10 mg at bedtime, hydrocodone/APAP 5/325 one tablet every 4 hours, lorazepam 0.5 mg every 8 hours as needed, Ambien 5 mg at bedtime, Requip 0.5 mg, takes one tablet at bedtime, potassium chloride 20 mEq once a day, furosemide was increased to 40 mg once a day, Trelegy Ellipta 1 inhalation daily, montelukast for Singulair 10 mg at bedtime, Mucinex 600 mg twice a day, Daliresp one tablet once a day, fluticasone propionate for Flonase 1 spray to each nostril twice a day, polyethylene glycol 17 grams daily, ondansetron 4 mg every 4 hours as needed, Protonix 40 mg once a day, prednisone 5 mg daily. She is also on levothyroxine sodium 88 mcg once a day, nystatin powder topically twice a day, cholecalciferol for vitamin D 1000 units once a day and melatonin 3 mg at bedtime. REVIEW OF SYSTEMS: As per history of present illness. PHYSICAL EXAMINATION: GENERAL: On arrival to the Emergency Room, she looked pale, but no jaundice, cyanosis or thyromegaly. No jugular venous distention. No lower limb edema. VITAL SIGNS: Her heart rate was 103, blood pressure was 131/65, temperature was 99.5, respiratory rate was 26 and oxygen saturation was 85% on 4 liters of oxygen. HEAD, EYES, EARS, NOSE AND THROAT: Showed normocephalic, atraumatic. NECK: Supple. HEART: Showed normal first and second heart sounds. No gallop, rub or murmur. CHEST: Clear to auscultation. No crepitation or rhonchi. ABDOMEN: Distended, soft, nontender. No guarding or rigidity. No organomegaly. All hernial orifice intact. Bowel sounds normal. NEUROLOGIC: She was sleepy, but arousable. All cranial nerves intact. She moves extremities without difficulty. She ambulates with a walker. LABORATORY DATA: On arrival to the Emergency Room showed a white cell count of 18,500, hemoglobin 11, hematocrit 34, MCV 96, and platelet count 254,000 with normal manual differential. Her chemistry showed a serum sodium 141, potassium 4.1, chloride 196, bicarbonate 37. Her calcium was 9.5, magnesium 2. Total bilirubin, AST, ALT, alkaline phosphatase were normal. Total protein was 7.6, albumin 3.6. Coagulation showed that her prothrombin time was 13.6, INR 1.1. Her D-dimer was high at 1.09. Urinalysis showed moderate leukocyte esterase, there were only 1-2 rbc's and 5-10 wbc's, moderate amount of bacteria. In summary, this is a 68-year-old female patient who was admitted with chest pain that was retrosternal, associated with shortness of breath. She would have 2 more sets of cardiac enzyme. We will consult the Cardiology team. Her CT scan was unremarkable. It is difficult to start her on antibiotic without firm evidence of infection as she is afebrile and CT scan showed no evidence of any infiltrate. I would consult the cobbler sole as well as the cook fishing vessel. KESHIA CORDERO MD DR: KIRSTEN/tami JOB#: [id number] / [id number]
[2018-08-30] MEDS ORDERED: IPRATRPIUM/ALBUTEROL 0.5/2.5MG 3 ML NEBU. NEB ONE (11:30)
--- NOTE | 2018-08-30 11:30 | PDOC ---
PULMONARY PROGRESS NOTES Vitals Vital Signs Date Time Temp Pulse Resp B/P (MAP) Pulse Ox O2 Delivery O2 Flow Rate FiO2 08/30/18 08:00 96.6 82 24 146/68 (94) 99 Nasal Cannula 5.0 96.6 General: Alert, No acute distress HEENT: Other Lungs: Clear Cardiovascular: S1, S2 Abdomen: Soft, Non-tender Extremities: No Edema Labs Laboratory Tests Test 08/29/18 21:15 08/29/18 21:18 08/29/18 21:55 08/30/18 01:50 Urine Collection Type Unknown Urine Color Yellow Urine Clarity Cloudy Urine pH 8.0 Urine Specific [place] 1.015 Urine Protein Negative mg/dL (NEG-TRACE) Urine Glucose (UA) Negative mg/dL (NEG) Urine Ketones (Stick) Negative mg/dL (NEG) Urine Blood Trace (NEG) Urine Nitrite Negative (NEG) Urine Bilirubin Negative (NEG) Urine Urobilinogen Dipstick 1.0 mg/dL (0.2 mg/dL) Urine Leukocyte Esterase Moderate (NEG) Urine RBC 1-2 /HPF (0-2) Urine WBC 5-10 /HPF (0-4) Urine Squamous Epithelial Cells Mod /LPF Urine Bacteria Many /HPF (0-FEW) Urine Mucus Mod /LPF White Blood Count 18.5 x10^3/uL (4.0-11.0) Red Blood Count 3.54 x10^6/uL (3.50-5.40) Hemoglobin 10.9 g/dL (12.0-15.5) Hematocrit 34.1 % (36.0-47.0) Mean Corpuscular Volume 96 fL (79-100) Mean Corpuscular Hemoglobin 31 pg (25-35) Mean Corpuscular Hemoglobin Concent 32 g/dL (31-37) Red Cell Distribution Width 14.2 % (11.5-14.5) Platelet Count 254 x10^3/uL (140-400) Neutrophils (%) (Auto) 83 % (31-73) Lymphocytes (%) (Auto) 4 % (24-48) Monocytes (%) (Auto) 12 % (0-9) Eosinophils (%) (Auto) 2 % (0-3) Basophils (%) (Auto) 0 % (0-3) Neutrophils # (Auto) 15.3 x10^3uL (1.8-7.7) Lymphocytes # (Auto) 0.6 x10^3/uL (1.0-4.8) Monocytes # (Auto) 2.2 x10^3/uL (0.0-1.1) Eosinophils # (Auto) 0.4 x10^3/uL (0.0-0.7) Basophils # (Auto) 0.0 x10^3/uL (0.0-0.2) Segmented Neutrophils % 85 % (35-66) Lymphocytes % 4 % (24-48) Monocytes % 10 % (0-10) Eosinophils % 1 % (0-5) Platelet Estimate Adequate (ADEQUATE) Polychromasia Slight Stomatocytes Occ Prothrombin Time 13.6 SEC (11.7-14.0) Prothromb Time International Ratio 1.1 (0.8-1.1) D-Dimer (Fara) 1.09 ug/mlFEU (0.00-0.50) Sodium Level 141 mmol/L (136-145) Potassium Level 4.1 mmol/L (3.5-5.1) Chloride Level 96 mmol/L (98-107) Carbon Dioxide Level 37 mmol/L (21-32) Anion Gap 8 (6-14) Blood Urea Nitrogen 20 mg/dL (7-20) Creatinine 1.0 mg/dL (0.6-1.0) Estimated GFR (Cockcroft-Gault) 55.5 BUN/Creatinine Ratio 20 (6-20) Glucose Level 103 mg/dL (70-99) Calcium Level 9.5 mg/dL (8.5-10.1) Magnesium Level 2.0 mg/dL (1.8-2.4) Total Bilirubin 0.6 mg/dL (0.2-1.0) Aspartate Amino Transf (AST/SGOT) 15 U/L (15-37) Alanine Aminotransferase (ALT/SGPT) 18 U/L (14-59) Alkaline Phosphatase 69 U/L (46-116) Creatine Kinase 29 U/L (26-192) Creatine Kinase MB (Mass) < 0.5 ng/mL (0.0-3.6) Creatine Kinase MB Relative Index % (0-4) Troponin I Quantitative < 0.017 ng/mL (0.000-0.055) < 0.017 ng/mL (0.000-0.055) SG-Bpg-W-Type Natriuretic Peptide 1097 pg/mL (0-124) Total Protein 7.6 g/dL (6.4-8.2) Albumin 3.6 g/dL (3.4-5.0) Albumin/Globulin Ratio 0.9 (1.0-1.7) Lipase 64 U/L (73-393) Lactic Acid Level 1.8 mmol/L (0.4-2.0) Test 08/30/18 05:10 Troponin I Quantitative < 0.017 ng/mL (0.000-0.055) Laboratory Tests Test 08/29/18 21:15 08/29/18 21:18 08/29/18 21:55 08/30/18 01:50 Urine Collection Type Unknown Urine Color Yellow Urine Clarity Cloudy Urine pH 8.0 Urine Specific [place] 1.015 Urine Protein Negative mg/dL (NEG-TRACE) Urine Glucose (UA) Negative mg/dL (NEG) Urine Ketones (Stick) Negative mg/dL (NEG) Urine Blood Trace (NEG) Urine Nitrite Negative (NEG) Urine Bilirubin Negative (NEG) Urine Urobilinogen Dipstick 1.0 mg/dL (0.2 mg/dL) Urine Leukocyte Esterase Moderate (NEG) Urine RBC 1-2 /HPF (0-2) Urine WBC 5-10 /HPF (0-4) Urine Squamous Epithelial Cells Mod /LPF Urine Bacteria Many /HPF (0-FEW) Urine Mucus Mod /LPF White Blood Count 18.5 x10^3/uL (4.0-11.0) Red Blood Count 3.54 x10^6/uL (3.50-5.40) Hemoglobin 10.9 g/dL (12.0-15.5) Hematocrit 34.1 % (36.0-47.0) Mean Corpuscular Volume 96 fL (79-100) Mean Corpuscular Hemoglobin 31 pg (25-35) Mean Corpuscular Hemoglobin Concent 32 g/dL (31-37) Red Cell Distribution Width 14.2 % (11.5-14.5) Platelet Count 254 x10^3/uL (140-400) Neutrophils (%) (Auto) 83 % (31-73) Lymphocytes (%) (Auto) 4 % (24-48) Monocytes (%) (Auto) 12 % (0-9) Eosinophils (%) (Auto) 2 % (0-3) Basophils (%) (Auto) 0 % (0-3) Neutrophils # (Auto) 15.3 x10^3uL (1.8-7.7) Lymphocytes # (Auto) 0.6 x10^3/uL (1.0-4.8) Monocytes # (Auto) 2.2 x10^3/uL (0.0-1.1) Eosinophils # (Auto) 0.4 x10^3/uL (0.0-0.7) Basophils # (Auto) 0.0 x10^3/uL (0.0-0.2) Segmented Neutrophils % 85 % (35-66) Lymphocytes % 4 % (24-48) Monocytes % 10 % (0-10) Eosinophils % 1 % (0-5) Platelet Estimate Adequate (ADEQUATE) Polychromasia Slight Stomatocytes Occ Prothrombin Time 13.6 SEC (11.7-14.0) Prothromb Time International Ratio 1.1 (0.8-1.1) D-Dimer (Fara) 1.09 ug/mlFEU (0.00-0.50) Sodium Level 141 mmol/L (136-145) Potassium Level 4.1 mmol/L (3.5-5.1) Chloride Level 96 mmol/L (98-107) Carbon Dioxide Level 37 mmol/L (21-32) Anion Gap 8 (6-14) Blood Urea Nitrogen 20 mg/dL (7-20) Creatinine 1.0 mg/dL (0.6-1.0) Estimated GFR (Cockcroft-Gault) 55.5 BUN/Creatinine Ratio 20 (6-20) Glucose Level 103 mg/dL (70-99) Calcium Level 9.5 mg/dL (8.5-10.1) Magnesium Level 2.0 mg/dL (1.8-2.4) Total Bilirubin 0.6 mg/dL (0.2-1.0) Aspartate Amino Transf (AST/SGOT) 15 U/L (15-37) Alanine Aminotransferase (ALT/SGPT) 18 U/L (14-59) Alkaline Phosphatase 69 U/L (46-116) Creatine Kinase 29 U/L (26-192) Creatine Kinase MB (Mass) < 0.5 ng/mL (0.0-3.6) Creatine Kinase MB Relative Index % (0-4) Troponin I Quantitative < 0.017 ng/mL (0.000-0.055) < 0.017 ng/mL (0.000-0.055) MU-Djr-D-Type Natriuretic Peptide 1097 pg/mL (0-124) Total Protein 7.6 g/dL (6.4-8.2) Albumin 3.6 g/dL (3.4-5.0) Albumin/Globulin Ratio 0.9 (1.0-1.7) Lipase 64 U/L (73-393) Lactic Acid Level 1.8 mmol/L (0.4-2.0) Test 08/30/18 05:10 Troponin I Quantitative < 0.017 ng/mL (0.000-0.055) Medications Active Scripts Medications Dose Route/Sig Max Daily Dose Days Date Category Dose Instructions Trelegy Ellipta 100-62.5-25 (Fluticasone/Umeclidin/Vilanter) 1 Each Blst.w.dev 1 Each IH DAILY 08/30/18 Reported [place] 5-325 Tablet (Acetaminophen/Hydrocodone Bitart) 1 Each Tablet 1 Tab PO PRN Q4HRS PRN 08/30/18 Reported Ambien (Zolpidem Tartrate) 5 Mg Tablet 5 Mg PO PRN QHS PRN 08/30/18 Reported Zofran (Ondansetron Hcl) 4 Mg Tablet 1 Tab PO Q6HRS PRN 08/30/18 Reported Lasix (Furosemide) 40 Mg Tablet 1 Tab PO DAILY 08/30/18 Reported Potassium Chloride 20 Meq Tablet.er 20 Meq PO DAILY 08/30/18 Reported Daily for 4 days starting 08-28-2018 Requip (Ropinirole Hcl) 0.5 Mg Tablet 1 Tab PO QHS 08/15/18 Reported Prednisone 1 Mg Tablet 5 Mg PO DAILY 08/15/18 Reported Mucinex (Guaifenesin) 600 Mg Tablet.er 600 Mg PO BID 08/15/18 Reported Simvastatin 10 Mg Tablet 10 Mg PO HS 08/15/18 Reported Daliresp (Roflumilast) 500 Mcg Tablet 1 Tab PO DAILY 08/15/18 Reported Polyethylene Glycol 3350 255 Gm Powder 17 Gm PO DAILY 08/15/18 Reported Protonix (Pantoprazole Sodium) 20 Mg Tablet.dr 40 Mg PO DAILY 08/15/18 Reported Nystatin 15 Gm Cream..g. 1 Eliana TP BID 08/15/18 Reported Singulair Tablet (Montelukast Sodium) 10 Mg Tablet 10 Mg PO HS 08/15/18 Reported Melatonin 3 Mg Tablet 1 Tab PO QHS 08/15/18 Reported Lorazepam 0.5 Mg Tablet 0.5 Mg PO PRN Q8HRS PRN 08/15/18 Reported Levothyroxine Sodium 88 Mcg Tablet 88 Mcg PO DAILYAC 08/15/18 Reported Ipratropium [place] 0.2 Mg/1 Ml Solution 1 Vial NEB QID 08/15/18 Reported Furosemide 20 Mg Tablet 1 Tab PO DAILY 08/15/18 Reported Daily starting 09-01-2018 Flonase Allergy Relief (Fluticasone Propionate) 9.9 Ml [place].susp 2 Sprays NS DAILY 08/15/18 Reported Vitamin D (Cholecalciferol (Vitamin D3)) 1,000 Unit Capsule 1 Cap PO DAILY 08/15/18 Reported Cetirizine Hcl 10 Mg Tablet 1 Tab PO DAILY 08/15/18 Reported Proair Hfa Inhaler (Albuterol Sulfate) 8.5 Gm Hfa.aer.ad 1 Puff INH PRN Q6HRS PRN 08/15/18 Reported Impression . NOTED DICTATED A/C RF CHEST PAIN ? GERD NO PE ON CT AGREE WITH CURRENT RX WILL FOLLOW ZHANG SAMSON MD Aug 30, 2018 11:30
[2018-08-30 11:45] VITALS: BP 123/65
[2018-08-30] MEDS: IPRATRPIUM/ALBUTEROL 0.5/2.5MG 3 ML NEBU. NEB SCH ×3 (11:45→20:28)
[2018-08-30] MEDS: PANTOPRAZOLE 40 MG TABLET.DR. PO SCH (11:54)
[2018-08-30 15:35] VITALS: BP 131/60
[2018-08-30 19:28] VITALS: BP 130/60
[2018-08-30] MEDS: BUDESONIDE 0.5 MG/2 ML NEBU. NEB SCH (20:28)
[2018-08-30] MEDS: SIMVASTATIN 10 MG TABLET PO SCH (20:45)
[2018-08-30] MEDS: LACTOBACILLUS RHAMNOSUS GG 1 CAPSULE. PO SCH (20:45)
[2018-08-30] MEDS: rOPINIRole 0.25 MG TABLET. PO SCH (20:46)
[2018-08-30] MEDS: MONTELUKAST SODIUM 10 MG TABLET. PO SCH (20:46)
[2018-08-30] MEDS ORDERED: NON FORMULARY ITEM (Melatonin 1 TAB) PO SCH (21:00)
[2018-08-30 22:06] VITALS: BP 116/63
[2018-08-30] MEDS: ZOLPIDEM 5 MG TABLET. PO PRN (22:08)
--- NOTE | 2018-08-30 22:44 | PN ---
DATE: 08/30/2018 SUBJECTIVE: The patient was admitted yesterday from [facility] with a complaint of chest pain that has subsided by the time she arrived to the Emergency Room. Her first set of cardiac enzymes showed troponin to be less than 0.017; had 2 more sets of cardiac enzymes that ruled out myocardial infarction. Her white cell count was high at 18,500; however, there is no complaint of chills, rigors or fever. Her CT angio of the chest did not show any evidence of infiltrate. Her D-dimer was high, so CT angio of the chest was negative for pulmonary embolism. There are mild bullous emphysematous changes seen in both lungs. Minimal dependent subsegmental atelectases is seen involving both lungs. No areas of consolidation, pleural effusion or pneumothorax are seen. When I saw her this morning, she was resting slightly propped up in bed, in no apparent distress. She has had no further episode of chest pain. She continues to have cough with scanty whitish sputum. Denied any chills, rigors or fever. PHYSICAL EXAMINATION: GENERAL: When I examined her, she looked well and was clearly in no apparent respiratory distress, slightly pale, but no jaundice, cyanosis, or thyromegaly. No jugular venous distension. No lower limb edema. VITAL SIGNS: Her heart rate was 81, blood pressure was 122/56, temperature was 98, respiratory rate was 19 and oxygen saturation was 99% on 4.5 liters of oxygen. The rest of clinical exam is stable, has not really changed. ASSESSMENT AND PLAN: In summary, this is a 68-year-old female patient who was admitted with chest pain. So far her 3 sets of cardiac enzymes showed no evidence of myocardial infarction. Her EKG showed she was in normal sinus rhythm with a heart rate of 96 beats per minute with no ST segment elevation. Her D-dimer was high, but CT angio was negative for pulmonary embolism. She has leukocytosis with a white cell count of 18,000, however, her lactic acid is only 1.8. The chest x-ray was unremarkable, did not show evidence of any infiltrate; however, her urinalysis was positive for moderate amount of leukocyte esterase and there were too many bacteria in the urine. I reconciled all her medication. I will also start her on Rocephin for possible urinary tract infection. I have reconsulted the team leader/research psychologist and taxi cab driver. KESHIA CORDERO MD DR: KIRSTEN/tami JOB#: [id number] / [id number]
--- NOTE | 2018-08-31 00:12 | CONS ---
DATE OF CONSULTATION: 08/30/2018 ATTENDING PHYSICIAN: Dr. Rangel. REASON FOR CONSULTATION: The patient seen in pulmonary consultation at the request of Dr. Rangel for chest pain and shortness of breath. HISTORY OF PRESENT ILLNESS: The patient is a 68-year-old female that has chronic respiratory failure, normally uses Trilogy at home, 4 liters of oxygen supplementation, underlying COPD, quit tobacco a year ago, presented with chest pain more than shortness of breath, epigastric discomfort radiating to the back. She also has a history of mitral valve regurgitation. She is scheduled to undergo possible repair. She has an appointment at [facility] coming up this Saturday. She presented to the Emergency Room with the above. I was asked to see her in consultation. She had a CT angiogram for PE protocol. I reviewed that there is no evidence of PE. There is bullous emphysema. She denies fever, chills, nausea, vomiting, or diarrhea. PAST MEDICAL HISTORY: 1. Chronic respiratory failure on home oxygen and Trilogy. 2. COPD/tobacco dependence, in remission. 3. Mitral valve stenosis. 4. Congestive heart failure, chronic heart failure. 5. Hyperlipidemia. 6. Morbid obesity. PAST SURGICAL HISTORY: No recent major surgeries. FAMILY HISTORY: Father had lung cancer. SOCIAL HISTORY: She quit tobacco years ago, has a [id number] history of tobacco use. ALLERGIES: No known drug allergies. CURRENT MEDICATIONS: List was reviewed. REVIEW OF SYSTEMS: As indicated above, otherwise, a 10-point system was reviewed and negative. CONSTITUTIONAL: Denies fever or chills. EYES: No change in visual acuity. HEENT: No nasal congestion or sore throat. PULMONARY: As indicated above. CARDIOVASCULAR: Chest pain as indicated above. GASTROINTESTINAL: She does have some reflux symptomatology. She does partake in caffeinated beverages. GENITOURINARY: Denies dysuria or frequency. MUSCULOSKELETAL: No localized muscle aches and joint pains. SKIN: No new skin rashes. NEUROLOGIC: No headaches, diplopia, or blurred vision. PHYSICAL EXAMINATION: GENERAL: Morbid obese individual. VITAL SIGNS: Currently on 4 L of oxygen supplementation, saturation greater than 92%. HEENT: Eyes, the sclerae were nonicteric. NECK: Jugular venous distention could not be assessed secondary to body habitus. CHEST: Full expansion. LUNGS: Poor airway flow, no wheezes. CARDIOVASCULAR: Regular rate and rhythm with S1, S2, no S3. ABDOMEN: Obese. EXTREMITIES: No pitting edema. NEUROLOGIC: The patient was awake, alert, following commands. A detailed neuro exam was not performed. LABORATORY DATA: UA was noted. She did have some wbc's. Electrolytes were noted. Troponin level was not elevated. INR was 1.1. White count was elevated. Hemoglobin and hematocrit were noted. CT chest was reviewed, no evidence of pulmonary embolism. IMPRESSION: 1. Acute on chronic hypoxemic respiratory failure. 2. Acute exacerbation of chronic obstructive pulmonary disease. 3. Chest pain. 4. Mitral stenosis. 5. Morbid obesity. 6. Tobacco dependence, in remission. PLAN: 1. Recommend continue oxygen supplementation and steroids. 2. Nebulized treatments. 3. Follow up with Cardiology. 4. The patient apparently has an appointment this coming Saturday at [facility] for the possibility of undergoing a mitral valve repair noninvasively. I do appreciate the privilege in sharing in the patient's care. ZHANG SAMSON MD DR: TRI/tami JOB#: [id number] / [id number]
[2018-08-31 02:00] VITALS: BP 132/49
[2018-08-31] MEDS: HYDROcodone/APAP 5/325MG 1 TAB TABLET PO PRN ×2 (02:38→13:09)
[2018-08-31 04:08] LABS: HEMATOCRIT 31.3 % (36.0-47.0); HEMOGLOBIN 10.1 g/dL (12.0-15.5); RED BLOOD COUNT 3.26 x10^6/uL (3.50-5.40); RED CELL DISTRIBUTION WIDTH 13.9 % (11.5-14.5); WHITE BLOOD COUNT 12.4 x10^3/uL (4.0-11.0)
[2018-08-31 04:36] LABS: ALBUMIN 2.9 g/dL (3.4-5.0); ALBUMIN/GLOBULIN RATIO 0.7 (1.0-1.7); CALCIUM 9.4 mg/dL (8.5-10.1); CREATININE 0.9 mg/dL (0.6-1.0); GFR 62.6; POTASSIUM 3.8 mmol/L (3.5-5.1); TOTAL BILIRUBIN 0.4 mg/dL (0.2-1.0); TOTAL PROTEIN 7.1 g/dL (6.4-8.2)
[2018-08-31] MEDS: PANTOPRAZOLE 40 MG TABLET.DR. PO SCH (07:00)
[2018-08-31] MEDS: LEVOTHYROXINE 88 MCG TABLET PO SCH (07:00)
[2018-08-31 07:40] VITALS: BP 114/44
[2018-08-31] MEDS: BUDESONIDE 0.5 MG/2 ML NEBU. NEB SCH ×2 (08:00→19:36)
[2018-08-31] MEDS: IPRATRPIUM/ALBUTEROL 0.5/2.5MG 3 ML NEBU. NEB SCH ×4 (08:50→19:36)
[2018-08-31] MEDS: cefTRIAXone IV Push 1 GM VIAL. IVP SCH (08:53)
[2018-08-31] MEDS: POLYETHYLENE GLYCOL 3350 17 GM PACKET. PO SCH (08:53)
[2018-08-31] MEDS: LACTOBACILLUS RHAMNOSUS GG 1 CAPSULE. PO SCH ×2 (08:53→20:46)
[2018-08-31] MEDS: CETIRIZINE HCL 10 MG TABLET. PO SCH (08:54)
[2018-08-31] MEDS: CHOLECALCIFEROL (VITAMIN D3) 1,000 UNIT TABLET PO SCH (08:54)
[2018-08-31] MEDS: ROFLUMILAST 500 MCG TABLET. PO SCH (08:54)
[2018-08-31] MEDS: POTASSIUM CHLORIDE 20 MEQ TABLET.ER. PO SCH (08:54)
[2018-08-31] MEDS: LORazepam 0.5 MG TABLET PO PRN ×2 (08:54→22:01)
[2018-08-31] MEDS: predniSONE 5 MG TABLET PO SCH (08:54)
[2018-08-31] MEDS: FUROSEMIDE 40 MG TABLET. PO SCH (08:54)
[2018-08-31] MEDS: FLUTICASONE 50MCG/NASAL SPRAY 16GM BOTTLE. NS SCH (08:55)
[2018-08-31] MEDS: NYSTATIN 100,000 UNIT/GM TOPICAL CREAM 15GM TUBE. TP SCH ×2 (08:55→20:47)
--- NOTE | 2018-08-31 09:54 | PDOC ---
PROGRESS NOTES Subjective Subjective Chest pain and dyspnea improved Objective Objective Vital Signs Date Time Temp Pulse Resp B/P (MAP) Pulse Ox O2 Delivery O2 Flow Rate FiO2 08/31/18 08:51 96 Nasal Cannula 4.0 08/31/18 07:40 82 20 114/44 (67) 08/31/18 02:00 97.3 97.3 Intake and Output 08/31/18 06:59 Intake Total 2840 ml Output Total 1850 ml Balance 990 ml Intake Oral 840 ml IV Total 2000 ml Output Urine Total 1850 ml Physical Exam Abdomen: Soft Heart: Regular rate Extremities: Other (trace edema) General: Alert, mild distress HEENT: Atraumatic Lungs: Other (scattered crepitations bilaterally) MUSCULOSKELETAL: No deformity Neuro: Normal speech Psych/Mental Status: Mood NL Assessment Assessment 1. Chest pain with atypical features and most probably GI etiology. Myocardial infarction has been ruled out. Recent right and left heart catheterization did not show any significant coronary artery disease, LVEF 65% and severe mitral stenosis. No further cardiac workup is indicated at this time. 2. Chronic diastolic heart failure: Clinically well compensated 3. Severe mitral stenosis: Consideration for outpatient referral to [facility] for possible balloon valvuloplasty 4. COPD: Treat per pulmonary team 5. Hypertension: Controlled 6. Hyperlipidemia: Continue statin therapy Follow-up in 1 month Comment Review of Relevant I have reviewed the following items fiona (where applicable) has been applied. Labs Laboratory Tests Test 08/31/18 02:55 08/31/18 03:00 White Blood Count 12.4 x10^3/uL (4.0-11.0) Red Blood Count 3.26 x10^6/uL (3.50-5.40) Hemoglobin 10.1 g/dL (12.0-15.5) Hematocrit 31.3 % (36.0-47.0) Mean Corpuscular Volume 96 fL (79-100) Mean Corpuscular Hemoglobin 31 pg (25-35) Mean Corpuscular Hemoglobin Concent 32 g/dL (31-37) Red Cell Distribution Width 13.9 % (11.5-14.5) Platelet Count 225 x10^3/uL (140-400) Sodium Level 140 mmol/L (136-145) Potassium Level 3.8 mmol/L (3.5-5.1) Chloride Level 99 mmol/L (98-107) Carbon Dioxide Level 36 mmol/L (21-32) Anion Gap 5 (6-14) Blood Urea Nitrogen 18 mg/dL (7-20) Creatinine 0.9 mg/dL (0.6-1.0) Estimated GFR (Cockcroft-Gault) 62.6 BUN/Creatinine Ratio 20 (6-20) Glucose Level 103 mg/dL (70-99) Calcium Level 9.4 mg/dL (8.5-10.1) Total Bilirubin 0.4 mg/dL (0.2-1.0) Aspartate Amino Transf (AST/SGOT) 11 U/L (15-37) Alanine Aminotransferase (ALT/SGPT) 14 U/L (14-59) Alkaline Phosphatase 50 U/L (46-116) Total Protein 7.1 g/dL (6.4-8.2) Albumin 2.9 g/dL (3.4-5.0) Albumin/Globulin Ratio 0.7 (1.0-1.7) Medications Current Medications Albuterol/ Ipratropium (Duoneb) 3 ml 1X ONCE NEB Last administered on at 11:41; Start 08/30/18 at 11:30; Stop 08/30/18 at 11:31; Status DC Albuterol/ Ipratropium (Duoneb) 3 ml RTQID NEB Last administered on 08/31/18at 08:50; Start 08/30/18 at 16:00 Budesonide (Pulmicort) 0.5 mg RTBID NEB Last administered on 08/31/18at 08:00; Start 08/30/18 at 20:00 Furosemide (Lasix) 20 mg DAILY PO ; Start 09/01/18 at 09:00 Lactobacillus Rhamnosus (Culturelle) 1 cap BID PO Last administered on 08:53; Start 08/30/18 at 21:00 Levothyroxine Sodium (Synthroid) 88 mcg DAILYAC PO Last administered on at 07:00; Start 08/30/18 at 10:30 Montelukast Sodium (Singulair) 10 mg QHS PO Last administered on 08/30/18at 20: 46; Start 08/30/18 at 21:00 Non-Formulary Medication (Melatonin ) 1 tab QHS PO ; Start 08/30/18 at 21:00; Stop 08/30/18 at 21:00; Status DC Pantoprazole Sodium (Protonix) 40 mg DAILYAC PO Last administered on 08/31/18at 07:00; Start 08/30/18 at 11:30 Ropinirole HCl (Requip) 0.5 mg QHS PO Last administered on 08/30/18at 20:46; Start 08/30/18 at 21:00 Simvastatin (Zocor) 10 mg HS PO Last administered on 08/30/18at 20:45; Start at 21:00 Vitals/I & O Vital Sign - Last 24 Hours 08/30/18 08/30/18 08/30/18 08/30/18 11:45 11:45 15:35 16:22 Temp 97.3 97.9 97.3 97.9 Pulse 78 85 Resp 30 30 B/P (MAP) 123/65 (84) 131/60 (83) Pulse Ox 100 100 98 O2 Delivery Nasal Cannula Nasal Cannula O2 Flow Rate 5.0 5.0 5.0 4.0 08/30/18 08/30/18 08/30/18 08/30/18 19:28 20:09 20:10 22:06 Temp 97.6 97.7 97.6 97.7 Pulse 97 87 Resp 20 20 B/P (MAP) 130/60 (83) 116/63 (80) Pulse Ox 98 96 98 O2 Delivery Nasal Cannula Nasal Cannula Nasal Cannula Nasal Cannula O2 Flow Rate 4.0 5.0 4.0 4.5 08/31/18 08/31/18 08/31/18 08/31/18 02:00 02:38 03:38 07:40 Temp 97.3 97.3 Pulse 93 82 Resp 22 18 18 20 B/P (MAP) 132/49 (76) 114/44 (67) Pulse Ox 100 100 O2 Delivery BiPAP/CPAP BiPAP/CPAP BiPAP/CPAP BiPAP/CPAP O2 Flow Rate 4.0 08/31/18 08:51 Pulse Ox 96 O2 Delivery Nasal Cannula O2 Flow Rate 4.0 Intake and Output 08/30/18 08/30/18 08/31/18 14:59 22:59 06:59 Intake Total 2000 ml 200 ml 640 ml Output Total 800 ml 1050 ml Balance 2000 ml -600 ml -410 ml TERI SNELL MD Aug 31, 2018 09:54
--- NOTE | 2018-08-31 11:16 | PDOC ---
PULMONARY PROGRESS NOTES Subjective PT BETTER TODAY Vitals Vital Signs Date Time Temp Pulse Resp B/P (MAP) Pulse Ox O2 Delivery O2 Flow Rate FiO2 08/31/18 08:51 96 Nasal Cannula 4.0 08/31/18 07:40 82 20 114/44 (67) 08/31/18 02:00 97.3 97.3 General: Alert Lungs: Clear, Other (POOR AIR FLOW) Cardiovascular: S1, S2 Abdomen: Soft, Non-tender Neuro Exam: Alert Extremities: No Edema Skin: Warm Labs Laboratory Tests Test 08/29/18 21:15 08/29/18 21:18 08/29/18 21:55 08/30/18 01:50 Urine Collection Type Unknown Urine Color Yellow Urine Clarity Cloudy Urine pH 8.0 Urine Specific [place] 1.015 Urine Protein Negative mg/dL (NEG-TRACE) Urine Glucose (UA) Negative mg/dL (NEG) Urine Ketones (Stick) Negative mg/dL (NEG) Urine Blood Trace (NEG) Urine Nitrite Negative (NEG) Urine Bilirubin Negative (NEG) Urine Urobilinogen Dipstick 1.0 mg/dL (0.2 mg/dL) Urine Leukocyte Esterase Moderate (NEG) Urine RBC 1-2 /HPF (0-2) Urine WBC 5-10 /HPF (0-4) Urine Squamous Epithelial Cells Mod /LPF Urine Bacteria Many /HPF (0-FEW) Urine Mucus Mod /LPF White Blood Count 18.5 x10^3/uL (4.0-11.0) Red Blood Count 3.54 x10^6/uL (3.50-5.40) Hemoglobin 10.9 g/dL (12.0-15.5) Hematocrit 34.1 % (36.0-47.0) Mean Corpuscular Volume 96 fL (79-100) Mean Corpuscular Hemoglobin 31 pg (25-35) Mean Corpuscular Hemoglobin Concent 32 g/dL (31-37) Red Cell Distribution Width 14.2 % (11.5-14.5) Platelet Count 254 x10^3/uL (140-400) Neutrophils (%) (Auto) 83 % (31-73) Lymphocytes (%) (Auto) 4 % (24-48) Monocytes (%) (Auto) 12 % (0-9) Eosinophils (%) (Auto) 2 % (0-3) Basophils (%) (Auto) 0 % (0-3) Neutrophils # (Auto) 15.3 x10^3uL (1.8-7.7) Lymphocytes # (Auto) 0.6 x10^3/uL (1.0-4.8) Monocytes # (Auto) 2.2 x10^3/uL (0.0-1.1) Eosinophils # (Auto) 0.4 x10^3/uL (0.0-0.7) Basophils # (Auto) 0.0 x10^3/uL (0.0-0.2) Segmented Neutrophils % 85 % (35-66) Lymphocytes % 4 % (24-48) Monocytes % 10 % (0-10) Eosinophils % 1 % (0-5) Platelet Estimate Adequate (ADEQUATE) Polychromasia Slight Stomatocytes Occ Prothrombin Time 13.6 SEC (11.7-14.0) Prothromb Time International Ratio 1.1 (0.8-1.1) D-Dimer (Fara) 1.09 ug/mlFEU (0.00-0.50) Sodium Level 141 mmol/L (136-145) Potassium Level 4.1 mmol/L (3.5-5.1) Chloride Level 96 mmol/L (98-107) Carbon Dioxide Level 37 mmol/L (21-32) Anion Gap 8 (6-14) Blood Urea Nitrogen 20 mg/dL (7-20) Creatinine 1.0 mg/dL (0.6-1.0) Estimated GFR (Cockcroft-Gault) 55.5 BUN/Creatinine Ratio 20 (6-20) Glucose Level 103 mg/dL (70-99) Calcium Level 9.5 mg/dL (8.5-10.1) Magnesium Level 2.0 mg/dL (1.8-2.4) Total Bilirubin 0.6 mg/dL (0.2-1.0) Aspartate Amino Transf (AST/SGOT) 15 U/L (15-37) Alanine Aminotransferase (ALT/SGPT) 18 U/L (14-59) Alkaline Phosphatase 69 U/L (46-116) Creatine Kinase 29 U/L (26-192) Creatine Kinase MB (Mass) < 0.5 ng/mL (0.0-3.6) Creatine Kinase MB Relative Index % (0-4) Troponin I Quantitative < 0.017 ng/mL (0.000-0.055) < 0.017 ng/mL (0.000-0.055) QL-Bkr-I-Type Natriuretic Peptide 1097 pg/mL (0-124) Total Protein 7.6 g/dL (6.4-8.2) Albumin 3.6 g/dL (3.4-5.0) Albumin/Globulin Ratio 0.9 (1.0-1.7) Lipase 64 U/L (73-393) Lactic Acid Level 1.8 mmol/L (0.4-2.0) Test 08/30/18 05:10 08/31/18 02:55 08/31/18 03:00 Troponin I Quantitative < 0.017 ng/mL (0.000-0.055) White Blood Count 12.4 x10^3/uL (4.0-11.0) Red Blood Count 3.26 x10^6/uL (3.50-5.40) Hemoglobin 10.1 g/dL (12.0-15.5) Hematocrit 31.3 % (36.0-47.0) Mean Corpuscular Volume 96 fL (79-100) Mean Corpuscular Hemoglobin 31 pg (25-35) Mean Corpuscular Hemoglobin Concent 32 g/dL (31-37) Red Cell Distribution Width 13.9 % (11.5-14.5) Platelet Count 225 x10^3/uL (140-400) Sodium Level 140 mmol/L (136-145) Potassium Level 3.8 mmol/L (3.5-5.1) Chloride Level 99 mmol/L (98-107) Carbon Dioxide Level 36 mmol/L (21-32) Anion Gap 5 (6-14) Blood Urea Nitrogen 18 mg/dL (7-20) Creatinine 0.9 mg/dL (0.6-1.0) Estimated GFR (Cockcroft-Gault) 62.6 BUN/Creatinine Ratio 20 (6-20) Glucose Level 103 mg/dL (70-99) Calcium Level 9.4 mg/dL (8.5-10.1) Total Bilirubin 0.4 mg/dL (0.2-1.0) Aspartate Amino Transf (AST/SGOT) 11 U/L (15-37) Alanine Aminotransferase (ALT/SGPT) 14 U/L (14-59) Alkaline Phosphatase 50 U/L (46-116) Total Protein 7.1 g/dL (6.4-8.2) Albumin 2.9 g/dL (3.4-5.0) Albumin/Globulin Ratio 0.7 (1.0-1.7) Laboratory Tests Test 08/31/18 02:55 08/31/18 03:00 White Blood Count 12.4 x10^3/uL (4.0-11.0) Red Blood Count 3.26 x10^6/uL (3.50-5.40) Hemoglobin 10.1 g/dL (12.0-15.5) Hematocrit 31.3 % (36.0-47.0) Mean Corpuscular Volume 96 fL (79-100) Mean Corpuscular Hemoglobin 31 pg (25-35) Mean Corpuscular Hemoglobin Concent 32 g/dL (31-37) Red Cell Distribution Width 13.9 % (11.5-14.5) Platelet Count 225 x10^3/uL (140-400) Sodium Level 140 mmol/L (136-145) Potassium Level 3.8 mmol/L (3.5-5.1) Chloride Level 99 mmol/L (98-107) Carbon Dioxide Level 36 mmol/L (21-32) Anion Gap 5 (6-14) Blood Urea Nitrogen 18 mg/dL (7-20) Creatinine 0.9 mg/dL (0.6-1.0) Estimated GFR (Cockcroft-Gault) 62.6 BUN/Creatinine Ratio 20 (6-20) Glucose Level 103 mg/dL (70-99) Calcium Level 9.4 mg/dL (8.5-10.1) Total Bilirubin 0.4 mg/dL (0.2-1.0) Aspartate Amino Transf (AST/SGOT) 11 U/L (15-37) Alanine Aminotransferase (ALT/SGPT) 14 U/L (14-59) Alkaline Phosphatase 50 U/L (46-116) Total Protein 7.1 g/dL (6.4-8.2) Albumin 2.9 g/dL (3.4-5.0) Albumin/Globulin Ratio 0.7 (1.0-1.7) Medications Active Scripts Medications Dose Route/Sig Max Daily Dose Days Date Category Dose Instructions Trelegy Ellipta 100-62.5-25 (Fluticasone/Umeclidin/Vilanter) 1 Each Blst.w.dev 1 Each IH DAILY 08/30/18 Reported [place] 5-325 Tablet (Acetaminophen/Hydrocodone Bitart) 1 Each Tablet 1 Tab PO PRN Q4HRS PRN 08/30/18 Reported Ambien (Zolpidem Tartrate) 5 Mg Tablet 5 Mg PO PRN QHS PRN 08/30/18 Reported Zofran (Ondansetron Hcl) 4 Mg Tablet 1 Tab PO Q6HRS PRN 08/30/18 Reported Lasix (Furosemide) 40 Mg Tablet 1 Tab PO DAILY 08/30/18 Reported Potassium Chloride 20 Meq Tablet.er 20 Meq PO DAILY 08/30/18 Reported Daily for 4 days starting 08-28-2018 Requip (Ropinirole Hcl) 0.5 Mg Tablet 1 Tab PO QHS 08/15/18 Reported Prednisone 1 Mg Tablet 5 Mg PO DAILY 08/15/18 Reported Mucinex (Guaifenesin) 600 Mg Tablet.er 600 Mg PO BID 08/15/18 Reported Simvastatin 10 Mg Tablet 10 Mg PO HS 08/15/18 Reported Daliresp (Roflumilast) 500 Mcg Tablet 1 Tab PO DAILY 08/15/18 Reported Polyethylene Glycol 3350 255 Gm Powder 17 Gm PO DAILY 08/15/18 Reported Protonix (Pantoprazole Sodium) 20 Mg Tablet.dr 40 Mg PO DAILY 08/15/18 Reported Nystatin 15 Gm Cream..g. 1 Eliana TP BID 08/15/18 Reported Singulair Tablet (Montelukast Sodium) 10 Mg Tablet 10 Mg PO HS 08/15/18 Reported Melatonin 3 Mg Tablet 1 Tab PO QHS 08/15/18 Reported Lorazepam 0.5 Mg Tablet 0.5 Mg PO PRN Q8HRS PRN 08/15/18 Reported Levothyroxine Sodium 88 Mcg Tablet 88 Mcg PO DAILYAC 08/15/18 Reported Ipratropium [place] 0.2 Mg/1 Ml Solution 1 Vial NEB QID 08/15/18 Reported Furosemide 20 Mg Tablet 1 Tab PO DAILY 08/15/18 Reported Daily starting 09-01-2018 Flonase Allergy Relief (Fluticasone Propionate) 9.9 Ml [place].susp 2 Sprays NS DAILY 08/15/18 Reported Vitamin D (Cholecalciferol (Vitamin D3)) 1,000 Unit Capsule 1 Cap PO DAILY 08/15/18 Reported Cetirizine Hcl 10 Mg Tablet 1 Tab PO DAILY 08/15/18 Reported Proair Hfa Inhaler (Albuterol Sulfate) 8.5 Gm Hfa.aer.ad 1 Puff INH PRN Q6HRS PRN 08/15/18 Reported Impression . IMPRESSION: 1. Acute on chronic hypoxemic respiratory failure. 2. Acute exacerbation of chronic obstructive pulmonary disease. 3. Chest pain. 4. Mitral stenosis. 5. Morbid obesity. 6. Tobacco dependence, in remission. Plan . HOME BIPAP UNIT CONTINUE THE SAME 1. Recommend continue oxygen supplementation and steroids. 2. Nebulized treatments. 3. Follow up with Cardiology. 4. The patient apparently has an appointment this coming Saturday at [facility] for the possibility of undergoing a mitral valve repair noninvasively. ZHANG SAMSON MD Aug 31, 2018 11:16
[2018-08-31 11:18] VITALS: BP 123/60
[2018-08-31 15:21] VITALS: BP 131/62
[2018-08-31 19:30] VITALS: BP 113/52
[2018-08-31] MEDS: SIMVASTATIN 10 MG TABLET PO SCH (20:46)
[2018-08-31] MEDS: MONTELUKAST SODIUM 10 MG TABLET. PO SCH (20:46)
[2018-08-31] MEDS: rOPINIRole 0.25 MG TABLET. PO SCH (20:46)
[2018-08-31] MEDS: ZOLPIDEM 5 MG TABLET. PO PRN (22:01)
[2018-08-31 22:39] VITALS: BP 131/62
[2018-09-01] MEDS: HYDROcodone/APAP 5/325MG 1 TAB TABLET PO PRN ×2 (00:51→08:48)
--- NOTE | 2018-09-01 01:56 | PN ---
DATE: 08/31/2018 SUBJECTIVE: The patient is sitting slightly propped up in bed, in no apparent respiratory distress. On questioning her, she states she is feeling much improved, had a good night sleep. PHYSICAL EXAMINATION: GENERAL: When I examined her, she looked well and was clearly in no apparent respiratory distress, pale. No jaundice, cyanosis or thyromegaly. No jugular venous distension. No limb edema. VITAL SIGNS: Her heart rate was 82, blood pressure was 114/44, temperature was 97.3, respiratory rate was 20 and oxygen saturation was 96% on 4 liters of oxygen by nasal cannula. HEAD, EYES, EARS, NOSE AND THROAT: Normocephalic and atraumatic. NECK: Supple. HEART: Normal first and second heart sounds. No gallop or murmur. CHEST: Shows central trachea, equal bilateral expansion, air entry. Very few scattered rhonchi. I could not appreciate any crepitation. ABDOMEN: Distended, soft and nontender. No guarding or rigidity. No organomegaly. All hernial orifice intact. Bowel sounds normal. NEUROLOGICAL: She is awake, alert, responding appropriately. Cranial nerves intact. She moves all her extremities without difficulty. She ambulates with a walker. Her intake was 745 and output was 800. LABORATORY DATA: As of this morning, her white cell count was 12,400; hemoglobin 10; hematocrit 31; MCV 96 and platelet count 225,000. Her chemistry showed a serum sodium 140, potassium 3.8, chloride 99, bicarbonate 36, anion gap of 5, BUN 18, creatinine 0.9, estimated GFR was 62 mL per minute, her glucose was 103 and calcium was 9.4. Total bilirubin, AST, ALT, alkaline phosphatase were normal. Total protein was 7.1, albumin was 2.9. Her prothrombin time was 13.6, INR 1.1. D-dimer was 1.09 mg. Urinalysis showed too many bacteria. ASSESSMENT: Chest pain, myocardial infarction ruled out. She has 3 sets of cardiac enzymes normal, showed they were normal. Her EKG showed that she was in normal sinus rhythm with no ST-T changes. D-dimer was high. CT angio of the chest was negative for pulmonary embolism. She does have leukocytosis and her urinalysis was more consistent with urinary tract infection to continue with IV Rocephin. PLAN: To discharge her back to [facility] tomorrow as she has an appointment at [facility] for replacement of her mitral valve next , 09/04/2018. KESHIA CORDERO MD DR: KIRSTEN/tami JOB#: [id number] / [id number]
[2018-09-01 03:05] VITALS: BP 129/59
[2018-09-01] MEDS: PANTOPRAZOLE 40 MG TABLET.DR. PO SCH (06:42)
[2018-09-01] MEDS: LEVOTHYROXINE 88 MCG TABLET PO SCH (06:42)
[2018-09-01 07:21] VITALS: BP 125/58
[2018-09-01] MEDS: IPRATRPIUM/ALBUTEROL 0.5/2.5MG 3 ML NEBU. NEB SCH (07:22)
[2018-09-01] MEDS: BUDESONIDE 0.5 MG/2 ML NEBU. NEB SCH (07:23)
[2018-09-01] MEDS ORDERED: CEFD300C PO (08:09)
--- NOTE | 2018-09-01 08:11 | SNU/HH DC ---
DISCHARGE ORDERS DISCHARGE INFORMATION: CONDITION ON DISCHARGE: Stable CODE STATUS: Code Status: Full PRISON: SNF STAY <30 DAYS: Yes POST DISCHARGE ORDERS: ACTIVITY ORDERS: Activity as tolerated WEIGHT BEARING STATUS: As tolerated DIET AFTER DISCHARGE: Cardiac WOUND/INCISION CARE: No wound care needed CHECKS AFTER DISCHARGE: CHECKS AFTER DISCHARGE: Check blood press - daily, Weigh Yourself Daily TREATMENT/EQUIPMENT ORDERS: ADAPTIVE EQUIPMENT NEEDED: None RESPIRATORY EQUIPMENT NEEDED: Oxygen, Nebulizer, CPAP Physical Therapy For: Evalulation/Treatment Occupational Therapy For: Evaluation/Treatment DISCHARGE MEDICATIONS: Home Meds Active Scripts Cefdinir (CEFDINIR) 300 Mg Capsule, 1 CAP PO BID for uti for 5 Days, #10 CAP Prov:KESHIA CORDERO MD 09/01/18 Reported Medications Fluticasone/Umeclidin/Vilanter (Trelegy Ellipta 100-62.5-25) 1 Each Blst.w.dev, 1 EACH IH DAILY for copd 08/30/18 Hydrocodone/Apap 5-325 (NORCO 5-325 TABLET) 1 Each Tablet, 1 TAB PO PRN Q4HRS PRN for PAIN, TAB 0 Refills 08/30/18 Zolpidem Tartrate (AMBIEN) 5 Mg Tablet, 5 MG PO PRN QHS PRN for INSOMNIA, TAB 0 Refills 08/30/18 Ondansetron Hcl (ZOFRAN) 4 Mg Tablet, 1 TAB PO Q6HRS PRN for NAUSEA, #20 TAB 08/30/18 Furosemide (LASIX) 40 Mg Tablet, 1 TAB PO DAILY for water retention, #90 TAB 1 Refill 08/30/18 Potassium Chloride (POTASSIUM CHLORIDE) 20 Meq Tablet.er, 20 MEQ PO DAILY for supplement, TAB.SR Daily for 4 days starting 08-28-2018 08/30/18 Ropinirole Hcl (REQUIP) 0.5 Mg Tablet, 1 TAB PO QHS for requip, #30 TAB 1 Refill 08/15/18 Prednisone (PREDNISONE) 1 Mg Tablet, 5 MG PO DAILY for prednisone, TAB 08/15/18 Guaifenesin (MUCINEX) 600 Mg Tablet.er, 600 MG PO BID for cough, TAB.SR 08/15/18 Simvastatin (SIMVASTATIN) 10 Mg Tablet, 10 MG PO HS for FOR CHOLESTEROL, #30 TAB 0 Refills 08/15/18 Roflumilast (DALIRESP) 500 Mcg Tablet, 1 TAB PO DAILY for R, #90 TAB 3 Refills 08/15/18 Polyethylene Glycol 3350 (POLYETHYLENE GLYCOL 3350) 255 Gm Powder, 17 GM PO DAILY for constipation, #527 GM 08/15/18 Pantoprazole Sodium (PROTONIX) 20 Mg Tablet.dr, 40 MG PO DAILY for Sub for Omeprazole, TAB 08/15/18 Nystatin (NYSTATIN) 15 Gm Cream..g., 1 LAURA TP BID for yeast, #30 GM 08/15/18 Montelukast Sodium (SINGULAIR TABLET) 10 Mg Tablet, 10 MG PO HS for FOR ASTHMA, #30 TAB 0 Refills 08/15/18 Melatonin (MELATONIN) 3 Mg Tablet, 1 TAB PO QHS for supplement, #30 TAB 2 Refills 08/15/18 Lorazepam (LORAZEPAM) 0.5 Mg Tablet, 0.5 MG PO PRN Q8HRS PRN for ANXIETY / AGITATION, TAB 08/15/18 Levothyroxine Sodium (LEVOTHYROXINE SODIUM) 88 Mcg Tablet, 88 MCG PO DAILYAC for THYROID SUPPLEMENT, #30 TAB 0 Refills 08/15/18 Ipratropium [place] (IPRATROPIUM BROMIDE) 0.2 Mg/1 Ml Solution, 1 VIAL NEB QID for shortness of breath, #300 ML 5 Refills 08/15/18 Furosemide (FUROSEMIDE) 20 Mg Tablet, 1 TAB PO DAILY for diaretic, #90 TAB 1 Refill Daily starting 09-01-2018 08/15/18 Fluticasone Propionate (Flonase Allergy Relief) 9.9 Ml [place].susp, 2 SPRAYS NS DAILY for allergy relief, BOTTLE 08/15/18 Cholecalciferol (Vitamin D3) (VITAMIN D) 1,000 Unit Capsule, 1 CAP PO DAILY for vitamin, #30 CAP 3 Refills 08/15/18 Cetirizine Hcl (CETIRIZINE HCL) 10 Mg Tablet, 1 TAB PO DAILY for allergies, #30 TAB 5 Refills 08/15/18 Albuterol Sulfate (PROAIR HFA INHALER) 8.5 Gm Hfa.aer.ad, 1 PUFF INH PRN Q6HRS PRN for SHORTNESS OF BREATH, INHALER 0 Refills 08/15/18 KESHIA CORDERO MD Sep 01, 2018 08:10
[2018-09-01] MEDS: POLYETHYLENE GLYCOL 3350 17 GM PACKET. PO SCH (08:48)
[2018-09-01] MEDS: POTASSIUM CHLORIDE 20 MEQ TABLET.ER. PO SCH (08:51)
[2018-09-01] MEDS: CHOLECALCIFEROL (VITAMIN D3) 1,000 UNIT TABLET PO SCH (08:51)
[2018-09-01] MEDS: predniSONE 5 MG TABLET PO SCH (08:51)
[2018-09-01] MEDS: LORazepam 0.5 MG TABLET PO PRN (08:51)
[2018-09-01] MEDS: FLUTICASONE 50MCG/NASAL SPRAY 16GM BOTTLE. NS SCH (08:52)
[2018-09-01] MEDS: LACTOBACILLUS RHAMNOSUS GG 1 CAPSULE. PO SCH (08:52)
[2018-09-01] MEDS: ROFLUMILAST 500 MCG TABLET. PO SCH (08:52)
[2018-09-01] MEDS: CETIRIZINE HCL 10 MG TABLET. PO SCH (08:52)
[2018-09-01] MEDS: NYSTATIN 100,000 UNIT/GM TOPICAL CREAM 15GM TUBE. TP SCH (08:52)
[2018-09-01] MEDS: cefTRIAXone IV Push 1 GM VIAL. IVP SCH (08:53)
[2018-09-01] MEDS ORDERED: FUROSEMIDE 20 MG TABLET PO SCH (09:00)
--- NOTE | 2018-09-01 09:00 | PDOC ---
PULMONARY PROGRESS NOTES Subjective PT BETTER TODAY Vitals Vital Signs Date Time Temp Pulse Resp B/P (MAP) Pulse Ox O2 Delivery O2 Flow Rate FiO2 09/01/18 08:48 Nasal Cannula 4.0 09/01/18 07:24 96 09/01/18 07:21 97.6 86 20 125/58 (80) 97.6 General: Alert Lungs: Clear, Other (POOR AIR FLOW) Cardiovascular: S1, S2 Abdomen: Soft, Non-tender Neuro Exam: Alert Extremities: No Edema Skin: Warm Labs Laboratory Tests Test 08/31/18 02:55 08/31/18 03:00 White Blood Count 12.4 x10^3/uL (4.0-11.0) Red Blood Count 3.26 x10^6/uL (3.50-5.40) Hemoglobin 10.1 g/dL (12.0-15.5) Hematocrit 31.3 % (36.0-47.0) Mean Corpuscular Volume 96 fL (79-100) Mean Corpuscular Hemoglobin 31 pg (25-35) Mean Corpuscular Hemoglobin Concent 32 g/dL (31-37) Red Cell Distribution Width 13.9 % (11.5-14.5) Platelet Count 225 x10^3/uL (140-400) Sodium Level 140 mmol/L (136-145) Potassium Level 3.8 mmol/L (3.5-5.1) Chloride Level 99 mmol/L (98-107) Carbon Dioxide Level 36 mmol/L (21-32) Anion Gap 5 (6-14) Blood Urea Nitrogen 18 mg/dL (7-20) Creatinine 0.9 mg/dL (0.6-1.0) Estimated GFR (Cockcroft-Gault) 62.6 BUN/Creatinine Ratio 20 (6-20) Glucose Level 103 mg/dL (70-99) Calcium Level 9.4 mg/dL (8.5-10.1) Total Bilirubin 0.4 mg/dL (0.2-1.0) Aspartate Amino Transf (AST/SGOT) 11 U/L (15-37) Alanine Aminotransferase (ALT/SGPT) 14 U/L (14-59) Alkaline Phosphatase 50 U/L (46-116) Total Protein 7.1 g/dL (6.4-8.2) Albumin 2.9 g/dL (3.4-5.0) Albumin/Globulin Ratio 0.7 (1.0-1.7) Medications Active Scripts Medications Dose Route/Sig Max Daily Dose Days Date Category Dose Instructions [place] Ellipta 100-62.5-25 (Fluticasone/Umeclidin/Vilanter) 1 Each Blst.w.dev 1 Each IH DAILY 08/30/18 Reported [place] 5-325 Tablet (Acetaminophen/Hydrocodone Bitart) 1 Each Tablet 1 Tab PO PRN Q4HRS PRN 08/30/18 Reported Ambien (Zolpidem Tartrate) 5 Mg Tablet 5 Mg PO PRN QHS PRN 08/30/18 Reported Zofran (Ondansetron Hcl) 4 Mg Tablet 1 Tab PO Q6HRS PRN 08/30/18 Reported Lasix (Furosemide) 40 Mg Tablet 1 Tab PO DAILY 08/30/18 Reported Potassium Chloride 20 Meq Tablet.er 20 Meq PO DAILY 08/30/18 Reported Daily for 4 days starting 08-28-2018 Requip (Ropinirole Hcl) 0.5 Mg Tablet 1 Tab PO QHS 08/15/18 Reported Prednisone 1 Mg Tablet 5 Mg PO DAILY 08/15/18 Reported Mucinex (Guaifenesin) 600 Mg Tablet.er 600 Mg PO BID 08/15/18 Reported Simvastatin 10 Mg Tablet 10 Mg PO HS 08/15/18 Reported Daliresp (Roflumilast) 500 Mcg Tablet 1 Tab PO DAILY 08/15/18 Reported Polyethylene Glycol 3350 255 Gm Powder 17 Gm PO DAILY 08/15/18 Reported Protonix (Pantoprazole Sodium) 20 Mg Tablet.dr 40 Mg PO DAILY 08/15/18 Reported Nystatin 15 Gm Cream..g. 1 Eliana TP BID 08/15/18 Reported Singulair Tablet (Montelukast Sodium) 10 Mg Tablet 10 Mg PO HS 08/15/18 Reported Melatonin 3 Mg Tablet 1 Tab PO QHS 08/15/18 Reported Lorazepam 0.5 Mg Tablet 0.5 Mg PO PRN Q8HRS PRN 08/15/18 Reported Levothyroxine Sodium 88 Mcg Tablet 88 Mcg PO DAILYAC 08/15/18 Reported Ipratropium [place] 0.2 Mg/1 Ml Solution 1 Vial NEB QID 08/15/18 Reported Furosemide 20 Mg Tablet 1 Tab PO DAILY 3/15/19 Reported Daily starting 09-01-2018 Flonase Allergy Relief (Fluticasone Propionate) 9.9 Ml [place].susp 2 Sprays NS DAILY 08/15/18 Reported Vitamin D (Cholecalciferol (Vitamin D3)) 1,000 Unit Capsule 1 Cap PO DAILY 08/15/18 Reported Cetirizine Hcl 10 Mg Tablet 1 Tab PO DAILY 08/15/18 Reported Proair Hfa Inhaler (Albuterol Sulfate) 8.5 Gm Hfa.aer.ad 1 Puff INH PRN Q6HRS PRN 08/15/18 Reported Impression . IMPRESSION: 1. Acute on chronic hypoxemic respiratory failure. 2. Acute exacerbation of chronic obstructive pulmonary disease. 3. Chest pain. 4. Mitral stenosis. 5. Morbid obesity. 6. Tobacco dependence, in remission. Plan . HOME BIPAP UNIT CONTINUE THE SAME 1. Recommend continue oxygen supplementation and steroids. 2. Nebulized treatments. 3. Follow up with Cardiology. 4. The patient apparently has an appointment this coming Saturday at [facility] for the possibility of undergoing a mitral valve repair noninvasively. ZHANG SAMSON MD Sep 01, 2018 09:00
[2018-09-01 10:52] VITALS: BP 115/62
--- NOTE | 2018-09-01 11:26 | NUR ---
SS following for discharge planning. Pt is from [facility], ; fax [phone]. Discharge orders received. SS phoned and faxed referral and discharge orders to [facility]. Pt will discharge today and return to [facility] at 1130. [facility] to provide transport. Pt and pt's RN notified.
--- NOTE | 2018-09-01 11:42 | NUR ---
Discharge Note: EDDIE SCOTT Discharge instructions and discharge home medications reviewed with Other facility [facility] Nurse and a copy given. All questions have been answered and understanding verbalized. The following instructions and handouts were given: CP, SOA 2 IV's removed [facility] via Wheelchair While [facility] NURSE was removing right FA IV patient received a skin tear, Skin tear was pictured and protocol followed
--- NOTE | 2018-09-01 18:33 | DS ---
DATE OF DISCHARGE: 09/01/2018 HOSPITAL COURSE: The patient is a 68-year-old female patient, a resident at [facility], who was admitted with chest pain, mostly retrosternal, associated with shortness of breath, but denied any nausea or vomiting. Denied any diaphoresis, denied any radiation of pain to the left shoulder, left arm, left-sided neck or jaw. The pain lasted about 15 minutes according to her. She was evaluated in the Emergency and was admitted and myocardial infarction was ruled out. Her D-dimer was elevated and CT angio of the chest was negative for pulmonary embolism and did have leukocytosis. She has also features in her urinalysis consistent with UTI, although the result of the culture and sensitivity still pending. She was treated with IV ceftriaxone and did respond very well, and as she remained stable, has had no further episode of chest pain, a decision was made to transfer her back to [facility]. She has an appointment to be seen at [facility] for noninvasive repair of her severe mitral stenosis either by balloon valvuloplasty or transcatheter mitral valve replacement. PHYSICAL EXAMINATION: GENERAL: When I saw her this morning, she was sitting up in her bed, eating her breakfast comfortably, in no apparent distress. On examining her, she was pale, but no jaundice, cyanosis, or thyromegaly. No jugular venous distension. No lower limb edema. VITAL SIGNS: Her heart rate was 86, blood pressure 125/58, temperature was 97.6, respiratory rate 20, and oxygen saturation was 98% on 4 liters of oxygen. HEAD, EYES, EARS, NOSE AND THROAT: Normocephalic, atraumatic. NECK: Supple. HEART: Showed normal first and second heart sounds. No gallop, rub or murmur. CHEST: Clear to auscultation. No crepitation or rhonchi. ABDOMEN: Distended, soft, nontender. NEUROLOGIC: She is awake, alert, responding appropriately. All cranial nerves intact. She moves extremities without difficulty. She ambulates with a walker. LABORATORY DATA: Her white cell count is down to 12,400, hemoglobin 10, hematocrit 31, MCV 96, and platelet count 225,000. As of yesterday, her serum sodium was 140, potassium 3.8, chloride 99, bicarbonate 6, anion gap of 5, BUN 18, creatinine 0.9, estimated GFR was 62 mL per minute. Her glucose 103, calcium was 9.4. Total bilirubin, AST, ALT, alkaline phosphatase were normal. Total protein was 7.1, albumin was 2.9. Her prothrombin time was 15.6, INR of 1.1, D-dimer was 1.09. Urinalysis showed the urine was cloudy with a pH of 8, specific gravity of 1.015. There was moderate amount of leukocyte esterase, 1-2 rbc's, 5-10 wbc's, large amount of bacteria. DISCHARGE MEDICATIONS: She was discharged to [facility] to continue on cefdinir 300 mg twice a day for 5 more days, albuterol sulfate 1 puff every 6 hours, cetirizine 10 mg once a day, vitamin D3 at 1000 International Units once a day, fluticasone propionate for Flonase 2 sprays each nostril once a day, Trelegy Ellipta 1 inhalation daily, furosemide 20 mg once a day, furosemide 40 mg once a day, Mucinex 600 mg twice a day, hydrocodone/APAP 5/325 one tablet every 4 hours as needed. She is on ipratropium bromide 0.2 mg in 1 mL by nebulizer 4 times a day, levothyroxine sodium 88 mcg once a day, lorazepam 0.5 mg every 8 hours, melatonin 3 mg at bedtime, montelukast for Singulair 10 mg once a day, nystatin 15 grams cream applied topically twice a day, ondansetron 4 mg p.o. every 6 hours, Protonix 40 mg once a day, polyethylene glycol 17 grams daily, potassium chloride 20 mEq once a day, prednisone 5 mg daily, Daliresp 500 mcg 1 tablet once a day, ReQuip 0.5 mg at bedtime, simvastatin 10 mg at bedtime and Ambien 5 mg at bedtime. FINAL DISCHARGE DIAGNOSES: 1. Chest pain, atypical, myocardial infarction was ruled out. The patient has no significant coronary artery disease and her recent catheterization and her ejection fraction was normal at 65%, although she has severe mitral stenosis. 2. Chronic diastolic congestive heart failure is clinically well compensated. 3. Severe mitral stenosis for which she has an appointment to be seen at [facility] for noninvasive repair of her mitral stenosis. 4. Chronic obstructive pulmonary disease, well compensated. 5. Hypertension, well controlled. 6. Hyperlipidemia. KESHIA CORDERO MD DR: Ailyn JOB#: [id number] / [id number]
== END 2018-09-01 11:46 | DRG 871 ==
LOC: ER 20:11 → 2 NORTH 22:50
PROVIDERS: ADMIT Internal Medicine; ATTEND Internal Medicine
PROC: 5A09357 Assistance with Respiratory Ventilation, Less than 24 Consecutive Hours, Continuous Positive Airway Pressure (ICD-10-PCS; principal; 2018-08-31)
PROC: 5A09357 Assistance with Respiratory Ventilation, Less than 24 Consecutive Hours, Continuous Positive Airway Pressure (ICD-10-PCS; 2018-09-01)
DX: A41.9 Sepsis, unspecified organism (principal); J96.21 Acute and chronic respiratory failure with hypoxia; J44.1 Chronic obstructive pulmonary disease with (acute) exacerbation; I50.32 Chronic diastolic (congestive) heart failure; N39.0 Urinary tract infection, site not specified; Z68.41 Body mass index [BMI] 40.0-44.9, adult; E66.01 Morbid (severe) obesity due to excess calories; I11.0 Hypertensive heart disease with heart failure; E78.00 Pure hypercholesterolemia, unspecified; E03.9 Hypothyroidism, unspecified; G25.81 Restless legs syndrome; E78.5 Hyperlipidemia, unspecified; G47.33 Obstructive sleep apnea (adult) (pediatric); I05.0 Rheumatic mitral stenosis; F17.201 Nicotine dependence, unspecified, in remission; D72.829 Elevated white blood cell count, unspecified; R07.89 Other chest pain; Z90.710 Acquired absence of both cervix and uterus; Z90.49 Acquired absence of other specified parts of digestive tract; Z99.81 Dependence on supplemental oxygen; Z82.49 Family history of ischemic heart disease and other diseases of the circulatory system; Z82.0 Family history of epilepsy and other diseases of the nervous system; Z80.1 Family history of malignant neoplasm of trachea, bronchus and lung; Z83.3 Family history of diabetes mellitus; Z82.5 Family history of asthma and other chronic lower respiratory diseases
CPT/HCPCS: 36415; 71275; 80053; 81001; 82553; 83605; 83690; 83735; 83880; 84484; 85007; 85025; 85027; 85379; 85610; 87086; 93005; 94640; 94760; 96361; 96374; J0696; J1100; J7030; J7512; J7620; J7626; Q9967; 99285-25